=== PATIENT | female | born 1970 | race Caucasian/White ===

== ENCOUNTER → 2022-10-05 | Outpatient (CLI) | payer OTHER | END | disposition home or self-care (01) | LOC: LABPAT 11:27 | PROVIDERS: ATTEND Orthopaedic Surgery | DX: Z01.812 Encounter for preprocedural laboratory examination (principal); Z22.322 Carrier or suspected carrier of Methicillin resistant Staphylococcus aureus; M51.26 Other intervertebral disc displacement, lumbar region | CPT/HCPCS: 87070 ==

== ENCOUNTER 2022-10-13 08:14 | Day surgery (SDC) | payer OTHER ==
--- NOTE | 2022-10-12 11:26 | P.HPOR ---
History of Present Illness H&P Date: 10/05/22 .D:Date: 10/05/22 : 10:29am .T:Title: [facility] History and Physical Date of :[birth year] Age: 51 year Height: 5'4" Weight: 220 lbs BMI: 37.76 kg/m2 Occupation: Unemployed VAS: 8 CHIEF COMPLAINT: recheck lumbar spine DOI:Chronic DOS: None Duration of current treatment regiment: >3 months HISTORY: Xrays No new xrays taken in office Trauma or injury No Work-Related No Pain description aching, burning, sharp. Location diffuse Patient notes that their pain radiates to bilateral lower extremities(R>L) Activity Modification yes , unable to stand or ambulate for extended periods of time. Ambulating with a walker. Hand Dominance right TREATMENTS COMPLETED: 6 weeks of PT completed? Month and Year of last PT date? 4 months ago Yes How many sessions? 12 Did it help? No Physician recommended home exercise completed? Duration of HEP course: greater than 3 months yes Patient has trialed the physician directed home exercise program (without) relief of their symptoms. Pt had to discontinue as it became too painful to complete. Medications yes List: Gabapentin 600mg and Lidocaine patches both without relief of her symptoms. Flexeril with mild relief. Pt is currently taking both ASA and Plavix. Alternative interventions Chiropractic: No Massage therapy: No R.I.C.E: yes , daily without relief. Brace: No Injections Yes (SI joint in [address] Camacho) How many? Several Did they help? No RFA: No SUBJECTIVE: Ms. Otto returns to the office for an recheck of their low back pain and to review the planned L4-L5 Microdiscectomy. Patient reports no improvements to her symptoms since the time of the last appointment. Patient continues to complain of increasing lumbar pain extending into the bilateral lower extremities (R>L) with right lower extremity weakness. Overall the patient has seen a progressive increase in symptoms since their onset. Ms. Otto symptoms are exacerbated with standing, ambulation, flexion/extension/twisting, and high impact movements like walking up and down the stairs, due to this they notes that it is increasingly difficult for Ms. Otto to complete many of their daily tasks. Patient is having severe sleep disturbances as well due to their ongoing pain and associated symptoms. Regarding treatments, the patient has previously trialed all abovementioned treatment modalities without relief of her symptoms. Patient denies trialing any other modalities at this time. For their symptoms, the pa bibiana has been taking Gabapentin without relief of her symptoms. Otherwise the patient denies any f/c/sob/cp, no incision concerns, no bladder or bowel retention/incontinence, no perineal numbness/tingling, and ambulates with a walker. HISTORY: Ms. Otto last returned to the office on 07/11/22 for a recheck of their low back pain. Since the time of the last appointment the patient reports no improvements to her pain or symptoms. Patient notes continued lumbar pain ongoing for several years with no known injury or trauma to indicate an exact onset of their symptoms. In addition to their lumbar pain, they do report that it radiates into the bilateral lower extremities, associated with numbness and tingling through L4-L5 dermatomal distribution. Overall the patient has seen a progressive increase in symptoms since their onset. Ms. Otto symptoms are exacerbated with prolonged standing and ambulation, due to this they notes that it is increasingly difficult for Ms. Otto to complete many of their daily tasks. Patient is having severe sleep disturbances as well due to their ongoing pain and associated symptoms. Regarding treatments, the patient has previously trialed all abovementioned modalities without relief of her symptoms. Patient d enies trialing any other modalities at this time. For their symptoms, the patient has been taking Gabapentin 600mg TID and Flexeril both without relief of her symptoms. Otherwise the patient denies any f/c/sob/cp, no incision concerns, no bladder or bowel retention/incontinence, no perineal numbness/tingling, and ambulates independently. Ms. Otto was last seen on 05/17/2022 regarding her cervical and lumbar spine. Regarding her lumbar symptoms, patient continues to report sharp pain about the low back that radiates into bilateral buttocks and lower extremities diffusely. Patient states she has increased and radiculopathy pain and numbness and tingling to bilateral lower extremities. Regarding her cervical symptoms, patient continues to report sharp pain radiating into the right upper extremity with numbness and tingling. Patient continues to have weakness in the right upper extremity. She states she's had increasing headaches and radiculopathy to bilateral upper extremities, greater in the right upper extremity. Patient reports overall 30% worse from previous visit. Otherwise she denies any bladder or bowel retention/incontinence, no perineal numbness/tingling, and ambulates with walker. MRI results reviewed with patient. Patient would like to proceed with lumbar spine evaluation regarding surgical intervention. Patient to follow up with Dr. Vences. Ms. Otto initially presented to the office on 02/16/2022 for an evaluation of her cervical and lumbar spine. She regards that both areas had similar time of onset but cannot pinpoint an exact onset or mechanism or injury to indicate an exact cause. With this she does report that her symptoms have progressively worsened over time. Regarding her cervical symptoms, she reports that sharp pain radiating into the right upper extremity. With the pain the patient also reports numbness/tingling along with weakness about the right upper extremity. Overall her symptoms are exacerbated with prolonged weightbearing and weightlifting which is increasingly making completion of his daily tasks hurt. As for the lumbar spine, the patient also reports sharp pain about the low back that radiates into the bilateral buttocks and lower extremities diffusely. With this she is concern with increasing numbness and tingling about the bilateral lower extremities. These symptoms are exacerbated with prolonged standing and amb ulation which is significantly impacting her daily functions. Overall she reports progressive levels of disability due to her symptoms. as for treatments, she has previously trialed a physician directed home exercise program for greater than 3 months without relief of her symptoms. Additionally she does take gabapentin and use Lidocaine patches without relief as well. Otherwise the patient has previously seen Dr. Camacho and has had prior injections in 2021 including SI joint but denies any improvements. Otherwise she denies any bladder or bowel retention/incontinence, no perineal numbness/tingling, and ambulates independently. The patients' past social, medical, family, surgical history, as well as review of systems, have been reviewed. Please refer to the Neurosurgery History and Phy sical form that has been scanned in to our electronic medical record system. 16 points review of systems completed and as stated in HPI, all other systems reviewed are negative. Social History: Reviewed, see appropriate section of the chart for details. P3 Social History: Smoking: none P3 Alcohol: none P3 P3 Family History: Reviewed, see appropriate section of the chart for details. P2 Past Medical History: Reviewed, see appropriate section of the chart for details. [id number] Medications: Rx: albuterol sulfate HFA 90 mcg/actuation aerosol inhaler Ref: 0 Rx: aspirin 81 mg tablet,delayed release Ref: 0 Rx: busPIRone 15 mg tablet Ref: 0 Rx: Carafate 1 gram tablet Ref: 0 Rx: CeleXA 20 mg tablet Ref: 0 Rx: clopidogreL 75 mg tablet Ref: 0 Rx: famotidine 20 mg tablet Ref: 0 Rx: lidocaine 5 % topical patch Ref: 0 Rx: Lipitor 10 mg tablet Ref: 0 Rx: Maxalt 10 mg tablet Ref: 0 Rx: melatonin 10 mg tablet Ref: 0 Rx: metoprolol tartrate 25 mg tablet Ref: 0 Rx: midodrine 5 mg tablet Ref: 0 Rx: Oxytrol 3.9 mg/24 hr transdermal patch Ref: 0 Rx: 28 mg iron-800 mcg tablet Ref: 0 Rx: cyclobenzaprine 5 mg tablet Ref: 0 Rx: gabapentin 600 mg tablet Ref: 0 PHYSICAL EXAMINATION: General: Awake, alert, appropriate for age, in no acute distress. HEENT: No unusual neck masses around region of lateral neck triangle, thyroid, supraclavicular groove Heart: Regular rate and rhythm, normal S1, S2 and no murmur/gallop. Lungs: Clear to auscultation bilaterally with no use of accessory muscles. Extremities: Skin warm and dry without acute lesions, coloration, temperature, skin intact, no tenderness or erythema Integument: Hairy patches: ABSENT Dorsal skin dimples: ABSENT Cafe au lait spots: ABSENT Surgical incisions: NONE Palpation: Please see Pain drawing on Intake sheet for further detail. Midline spinal tenderness: No E6 Cervical Tenderness: No E6 Paralumbar tenderness: No E6 Parathoracic tenderness: No E6 Buttocks tenderness: No E6 Sacroiliac Tenderness: No POSTURAL and MUSCULO-SKELETAL EVALUATION: Coronal Balance: NEUTRAL Recumbent testing: Patient is able to lay flat on back Sagittal Balance: NEUTRAL Shoulder Profile: LEVEL Pelvic Girdle: LEVEL Neck ROM: UNRESTRICTED Lumbar ROM: RESTRICTED Shoulder ROM: Symmetrical Hip ROM: Symmetrical Knee ROM: Symmetrical Hands: Normal appearance, symmetrical Feet: Normal appearance, Symmetrical VASCULAR STATUS : LEFT RIGHT Wrist Pulses INTACT INTACT Pedal Pulses (Dors. pedis & post.tibialis) INTACT INTACT Color NORMAL NORMAL Edema Absent Absent NEUROLOGIC EXAMINATION: Mental Status:Awake and alert, fully oriented, with normal attention, concentration and memory, and fluent, appropriate speech. Cranial Nerves: I: Olfactory not tested. II: Visual acuity normal, no visual field deficit noted with confrontation. III,IV: Normal pupillary reflexes & intact extraocular movements without nystagmus. V,: Intact symmetrical facial sensation. VII: Intact symmetrical facial motor movement VIII: Hearing intact. IX,X: Intact gag, swallow, & normal voice. XI: Sternocleidomastoid, trapezius function intact. XII: Tongue midline with normal movements. L'hermitte's Sign: Negative / absent Spurling'Sign: Absent bilaterally. Cubital percussion test: Absent bilaterally. Hicks-Tinel sign - Carpal region: Absent bilaterally. Straight Leg Raising: Absent bilaterally. 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 Sensory system (0-4, N/T) Test type RU MIKE RL LL Joint-Position 2 2 2 2 Vibration 2 2 2 2 Pain & LT sense 2 2 2 2 Dermatomal Deficit: None None L4-L5 L4-L5 Gait and Functional Evaluation: Ambulatory aids: walker Romberg's test: Intact bilaterally Toe heel walk / heel-toe walk intact while maintaining satisfactory balance? No Squatting/straightening w/o assistance to a min of 60 degree knee flexion? No Single leg stance: not intact right side Trendelenburg sign negative bilaterally Hand and finger dexterity intact bilaterally? yes Disdiadochokinesis examination negative bilaterally? yes RADIOGRAPHIC STUDIES: XRay Lumbar Multiview (AP, Lateral, Flexion, Extension) with AP pelvis; 11 views taken on 02/16/22 of Lumbar Spine and Pelvis: disc desiccation and height loss noted at L4-L5 as well as L5-S1. No acute alignment changes. No fractures or other dislocations or lesions noted. Overall alignment is fairly well maintained. Some facet arthrosis noted. AP pelvis demonstrates congruent level pelvis no fracture. MRI taken on 03/29/22 at [facility] of the Cervical and Lumbar Spine: Cervical: Impression: 1. leftward disc protrusiondisc osteophyte complex at C5-C6. Stable. Minimal mass effect upon the anterior left jose manuel-cord. 2. Mild variable bony neural foraminal narrowing. 3. Satisfactory spinal cord signal intensity. Lumbar: Impression: 1. Progressive rightsided disc extrusion with caudal migration of disc material at L4-5. 2. Mass effect on the anterior right thecal sac and posterior displacement right L5 nerve root on the basis of the disc extrusion. 3. Mild neuro degenerative and spondylitic changes as detailed. IMPRESSION: It was my pleasure to have seen and examined Monica. I reviewed the patient's clinical syndrome, physical findings, and imaging studies during the appointment today. It is my impression that the patient has a diagnosis of. 1. L4-L5 herniated nucleus pulposus 2. bilateral lower extremity radiculopathy (R>L) 3. right lower extremity weakness I outlined the natural course history without intervention and various interventional options. PLAN: Based on my findings I suggest the following course of action: -Advised patient to continue with supplements, health maintenance, and home exercise programs. Patient expressed understanding and will continue with these modalities. -I discussed treatment options with the patient, including operative and non- operative options, and they have elected to proceed with the following surgical procedure: lumbar (L4-L5) MIS Microdiskectomy The indications, risks, benefits, and alternatives to surgery were discussed with the patient at length. Specifically (but not limited to) the risks of infection, stiffness, recurrence of symptoms, need for revision surgery, local numbness, neurovascular injury, and blood clots were discussed. The patient's questions were answered. The decision to proceed was made. Consent will be obtained for the procedure. Spine Surgery Risk Review Ms. Otto is presenting for evaluation of low back pain. It was my pleasure to have seen and examined Ms. Otto. In our visit today we have had a chance to go over subjective complaints, physical examination findings and treatments including the natural course history without intervention and various interventional options. The patients imaging demonstrates: XRay Lumbar Multiview (AP, Lateral, Flexion, Extension) with AP pelvis; 11 views taken on 02/16/22 of Lumbar Spine and Pelvis: disc desiccation and height loss noted at L4-L5 as well as L5-S1. No acute alignment changes. No fractures or other dislocations or lesions noted. Overall alignment is fairly well maintained. Some facet arthrosis noted. AP pelvis demonstrates congruent level pelvis no fracture. MRI taken on 03/29/22 at [facility] of the Cervical and Lumbar Spine: Cervical: Impression: 1. leftward disc protrusiondisc osteophyte complex at C5-C6. Stable. Minimal mass effect upon the anterior left jose manuel-cord. 2. Mild variable bony neural foraminal narrowing. 3. Satisfactory spinal cord signal intensity. Lumbar: Impression: 1. Progressive rightsided disc extrusion with caudal migration of disc material at L4-5. 2. Mass effect on the anterior right thecal sac and posterior displacement right L5 nerve root on the basis of the disc extrusion. 3. Mild neuro degenerative and spondylitic changes as detailed. On physical exam, Ms. Otto demonstrates restricted lumbar ROM with pain that is significantly impacting ability to perform functional testing. Furthermore the patient does also demonstrate bilateral lower extremity radiculopathy and paresthesias through the L4-L5 dermatomal distribution. There is right lower extremity weakness along with unsteady gait. Patient ambulating with the use of a walker. I have explained to the patient that as their condition progresses it will cause further neurological deficits and eventual paralysis. Based on the patients imaging, physical exam, and the rapid progression and disabling nature of their symptoms, at this time I recommend surgery in the form or a: lumbar (L4-L5) MIS Microdiskectomy . I discussed the risk and benefits of this procedure at length with Ms. Otto. The patient agreed to considered pursuing the procedure abovementioned. Prior to surgery, she should follow up with her PCP (Cardio, ID, IM etc) for clearance. Questions were invited and answered, and the patient wishes to proceed as outlined below. Currently, I am recommendin.lumbar (L4-L5) MIS Microdiskectomy 2.Follow up with PCP for surgical clearance 3.Review of surgical risks and benefits as well as an educational packet on the proposed surgical procedure. Risks: All surgical procedures come with inherent risks, including those related to positioning, anesthesia, intraoperative findings, and postoperative complications. It is important to understand that surgery does not come with any guarantee of a successful outcome as complications and adverse events are always possible. The patient was given a handout in office today discussing the surgical procedure and risks associated with the intervention, both of which were discussed with the patient. These risks include but are not limited to the following: * Experiencing same, different or even worse symptoms in back, neck, arms, or legs compared to before surgery. Requiring further surgery or other forms of treatment presently or at some time in the future at same or other levels of the intended spine surgery. On an extreme but fortunately relatively rare basis severe complication such as blindness, stroke, heart attack, temporary and/or permanent nerve injury, paralysis, coma, or may occur, sometimes without known explanation. Surgical complications may include but are not limited to risk of infection, fluid accumulation in the surgical dissection site, including a seroma or hematoma, that requires additional surgery, wound drainage, bleeding, new numbness or weakness, vision changes/loss, spinal fluid leakage, non-healing and/or infected incision, headaches, difficulty or inability to swallow, hoarseness, hemopneumothorax, pneumothorax, impotence, retrograde ejaculation, vaginal dryness; injury to nerves, spinal cord, blood vessels, lymphatics or other vital organs (i.e., bowel injury, injury to the great vessels); heterotopic bone formation; complications related to the hardware such as screws, rods, cages including misplaced hardware, device failure, instrumentation at the wrong spine level, hardware fracture/breakage, or hardware loosening; vertebral failure of the spinal column above or below the newly placed hardware; retained surgical instrumentations or devices and the need for further surgery. * Medical risks of the planned spine surgery include but are not limited to generalized Infections to the whole body or local areas outside of the surgical site (sepsis), heart attack, bleeding, anaphylaxis, meningitis, seizure, epilepsy, hearing loss, burn souza, laceration of the head or other areas of the body, bruising, hypersensitivity of the skin, bladder over distension; allergic reaction; shoulder injury related to positioning; fat, blood and air clots to other areas of the body like heart, lungs, brain; failure of internal organs such as lungs, kidneys, liver and excessive bleeding. If blood transfusions are necessary, note that transfusions may cause intolerance reactions such as anaphylaxis or other complex reactions. Despite best efforts, the results of spine surgery might not heal in terms of bone, soft tissues such as skin, fascia, ligaments, and joints. Additionally, in order to achieve best possible results, spine surgery may be carried out beyond the initially planned levels and involve decompression, fusion including insertion of hardware at levels other than the original intended area of surgical interest change some portions of the procedure in order to ensure the best possible outcomes. With spine surgery and spinal fusion, there are different off label uses of i nstrumentation (devices, implants and hardware) as well as biological substances (bone morphogenic proteins, demineralized bone matrix) as well as using extra bone from allograft sources (i.e. cadaver bone) or autograft (iliac crest bone, ribs, or the spine itself). The patient has been given information about these practices and their inherent risks and benefits. [facility] is an educational center that serves as a training facility for neurosurgical and orthopedic DISTRICT CLAIMS MANAGER and Nursing students. Physician assistants are medically trained surgical providers who function in the outpatient, inpatient, and operating room setting under the direct supervision of the attending surgeon. [facility] has multiple operating rooms with single and overlapping rooms running daily. They currently function under the required guidelines as produced by the [facility] Finance Committee with regards to the overlapping rooms and will continue to comply with changes to this policy as they occur. The requirements include and are complied with as follows: (1) the critical portions of the overlapping rooms will not occur at the same time, (2) the attending physician will be physically present during the critical portions of the procedure and immediately available during the entire case, and (3) a back-up attending is designated should the primary attending not be immediately available. The patient has had a chance to review all the listed information, has been given print outs detailing this information, and has had all his/her questions answered to their satisfaction. It was my pleasure to have seen and examined Ms. Otto. In our visit today we have had a chance to go over my understanding of our patient's current condition, the natural course history without intervention and various interventional options. Questions were invited and answered, and the patient wishes to proceed as outlined above. I have seen and examined the patient for 25 minutes and we have spent more than 50% of the time in repeat and detailed counseling about the patient's condition, its natural course history with out and as much as can be predicted with surgery and re-review of various surgical treatment options. In conclusion, Ms. Otto requested we proceed with the above suggested surgery and are willing to accept risks and limitations of the suggested surgery as nature of the disease process and our best attempts at treatment for the condition. Thank you again for allowing us to be part of your patient's care. Please don't hesitate to contact me if you have any further questions. Signed and authenticated by: Follow-up: 2 weeks post-op Patient Education: (Informational booklet, instructions, etc) given at today's appointment: Yes .ED:Patient Education: Y Plan at next visit: pre-operative review Medications Reviewed: YES In our visit today Ms. Otto and I have had a chance to go over my understanding of the patient's current condition, the natural course history without intervention and various interventional options. Questions were invited and answered, and the patient wishes to proceed as outlined above. I will be sure to keep you updated afterMs. Otto returns here for further follow-up. Thank you again for your referral. Please do not hesitate to contact me if you have any further questions. Signed and authenticated by: Emil Castillo [facility] [address] [place] [phone] This message is confidential, intended only for the named recipient(s) and may contain information that is privileged or exempt from disclosure under applicable law. If you are not the intended recipient(s), you are notified that the dissemination, distribution or copying of this information is strictly prohibited. If you received this message in error, please notify the sender then delete this message. Patient verbalizes understanding of the information discussed. The above note was initiated by Emil Miguel, physician recording assistant women's soccer coach for Dr. Emil Vences. This note has been reviewed by Dr. Vences, who has made his personal changes and impressions for this document. # SIGNED BY Emil Vences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
[~2022-10-13 08:14] MED LIST: ACETAMINOPHEN TAB 500 MG TAB PO PRN; GABAPENTIN 300 MG CAP PO PRN; ONDANSETRON 4 MG/2 ML VIAL IVP PRN; TRANEXAMIC ACID IN NACL,ISO-OS 1,000 MG in SALINE 1 100ML.BAG IVPB PRN
[2022-10-13 08:49] VITALS: TEMP 96.9
[2022-10-13] MEDS ORDERED: LACTATED RINGERS 1,000 ML IV ONE ×2 (09:28→11:36)
[2022-10-13] MEDS ORDERED: DEXAMETHASONE SOD PHOSPHATE 4 MG/ML 1 ML VIAL IVP ONE (09:30)
[2022-10-13] MEDS ORDERED: MIDAZOLAM 2 MG/2 ML VIAL ONE (10:02)
[2022-10-13] MEDS ORDERED: TRANEXAMIC ACID IN NACL,ISO-OS 1,000 MG/100 ML BAG ONE (10:02)
[2022-10-13] MEDS ORDERED: GLYCOPYRROLATE 0.2 MG/ML 2 ML VIAL ONE (10:02)
[2022-10-13] MEDS ORDERED: LIDOCAINE 2% INJ 20 MG/ML (2 ML VIAL) ONE (10:02)
[2022-10-13] MEDS ORDERED: NEOSTIGMINE 1 MG/ML 10 ML VIAL ONE (10:02)
[2022-10-13] MEDS ORDERED: PROPOFOL 10 MG/ML 20 ML VIAL IV ONE (10:02)
[2022-10-13] MEDS ORDERED: ePHEDrine 50 MG/ML 1 ML VIAL ONE (10:02)
[2022-10-13] MEDS ORDERED: fentaNYL (PF) 50 MCG/ML 2 ML AMP ONE (10:02)
[2022-10-13] MEDS ORDERED: ROCURONIUM 10 MG/ML (5 ML VIAL) IV ONE (10:02)
[2022-10-13] MEDS ORDERED: SUCCINYLCHOLINE CHLORIDE 200 MG/10 ML VIAL IV ONE (10:02)
[2022-10-13] MEDS ORDERED: BUPIVACAIN-EPI 0.25%-1:200,000 30 ML VIAL SQ ONE (10:07)
[2022-10-13] MEDS ORDERED: THROMBIN (BOVINE) 5,000 UNIT VIAL TOPICAL ONE (10:07)
[2022-10-13] MEDS ORDERED: GELATIN SPONGE,ABSORB (LARGE) 1 EACH SPONGE TOPICAL ONE (10:07)
[2022-10-13] MEDS ORDERED: methylPREDNISolone ACETATE 40 MG/ML 1 ML VIAL MISCELLANE ONE (11:29)
--- NOTE | 2022-10-13 12:05 | P.OP ---
Date of Procedure: 10/13/22 Preoperative Diagnosis: 1. 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 L4-5 stenosis 3. LE radiculopathy 4 .LE weakness Postoperative Diagnosis: 1. 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 L4-5 stenosis 3. LE radiculopathy 4 .LE weakness Procedure(s) Performed: 1. L4-5 hemilaminotomy, partial medial facetectomy and foraminotomy with microdiscectomy (59309) 2. Needle localization of L4-5 interspace using flouroscopy Use of microscope Implants: None Anesthesia: GETA Surgeon: Emil Vences Nursing Professor #1: Levar Figueroa (Was present and assisted in all aspects of the case from positioning to dressing placement) Estimated Blood Loss (ml): 25 IV fluids (ml): 1,000 Urine output (ml): 0 Pathology: none sent Condition: stable Disposition: PACU Indications for Procedure: Ms. Otto is presenting for evaluation of low back pain. It was my pleasure to have seen and examined Ms. Otto. In our visit today we have had a chance to go over subjective complaints, physical examination findings and treatments including the natural course history without intervention and various interventional options. The patients im aging demonstrates: XRay Lumbar Multiview (AP, Lateral, Flexion, Extension) with AP pelvis; 11 views taken on 02/16/22 of Lumbar Spine and Pelvis: disc desiccation and height loss noted at L4-L5 as well as L5-S1. No acute alignment changes. No fractures or other dislocations or lesions noted. Overall alignment is fairly well maintained. Some facet arthrosis noted. AP pelvis demonstrates congruent level pelvis no fracture. MRI taken on 03/29/22 at [facility] Lumbar Sp[facility]: Cervical: Impression: 1. leftward disc protrusiondisc osteophyte complex at C5-C6. Stable. Minimal mass effect upon the anterior left sundar-cord. 2. Mild variable bony neural foraminal narrowing. 3. Satisfactory spinal cord signal intensity. Lumbar: Impression: 1. Progressive rightsided disc extrusion with caudal migration of disc material at L4-5. 2. Mass effect on the anterior right thecal sac and posterior displacement right L5 nerve root on the basis of the disc extrusion. 3. Mild neuro degenerative and spondylitic changes as detailed. On physical exam, Ms. Otto demonstrates restricted lumbar ROM with pain that is significantly impacting ability to perform functional testing. Furthermore the patient does also demonstrate bilateral lower extremity radiculopathy and paresthesias through the L4-L5 dermatomal distribution. There is right lower extremity weakness along with unsteady gait. Patient ambulating with the use of a walker. I have explained to the patient that as their condition progresses it will cause further neurological deficits and eventual paralysis. Based on the patients imaging, physical exam, and the rapid progression and disabling nature of their symptoms, at this time I recommend surgery in the form or a: lumbar (L4-L5) MIS Microdiskectomy . I discussed the risk and benefits of this procedure at length with Ms. Otto. The patient agreed to considered pursuing the procedure abovementioned. Prior to surgery, she should follow up with her PCP (Cardio, ID, IM etc) for clearance. Questions were invited and answered, and the patient wishes to proceed as outlined below. Currently, I am recommendin.lumbar (L4-L5) MIS Microdiskectomy Description of Procedure: The patient was seen and examined in the preoperative area. All preoperative protocols were followed. Informed consent was obtained, risks and benefits of the procedure were discussed at length. Risks including bleeding infection damage to the surrounding tissue and risk of re-operation were discussed with the patient. Risk of anesthesia up to and including was discussed with the patient. These are outlined in the risk review. They were willing to accept these risks and all the risks of surgery. The patient was given a weight-based dose of antibiotics in the form of 2 g Ancef. The patient was seen and evaluated by the anesthesia team who deemed them fit for surgery. The site was marked, the patient was willing to proceed with the procedure. The patient was transferred to the operative suite by the Department of anesthesia. They were then drifted off to sleep by the department anesthesia and GETA was performed. The patient tolerated this well. Once confirmation of lines and ventilation the patient was transferred to a prone Armando table very carefully. All bony prominences including wrists, elbows, axilla, chest, hips, and thighs, and feet were padded very well. Special attention was paid to the genitalia, and these were padded accordingly. SCDs were placed on bilateral lower extremities and were connected. Arms were well padded and placed on arm boards up and out in the 90/90 position. Once in position, again we confirmed good ventilation capabilities and that lines were running appropriately. The patients Lumbar spine was then exposed. 1010s were placed outlining the incision site. Standard alcohol was used to clean the incision site and allowed to dry. C-arm was used to needle localize the pedicles at L4-5 and bio-rodrigo the patient and confirm level for incision which was marked with a skin marker. Operative briefing was performed with all teams and everyone in agreement to proceed. The patient was then prepped and draped in a normal sterile fashion. Timeout was then performed, and all parties agreed with the procedure to be performed. Skin incision was made over the previously marked area and dissection taken down to the deep facia which was split just off midline for a midline sparing approach (Right). Subperiosteal dissection was then taken down the lamina over the facet joints and identifying the pars at L4. [place] 4 was placed at the level of the pars of L4 and a lateral image taken to confirm operative level. Retractors were then placed. Microscope was then brought in for visualization. Sundar-laminotomy, partial medial facetectomy and foraminotomy were performed at L4-5 using high speed zhanna and Kerrison rongure. The ligamentum flavum was removed with Kerrison and curette. Dura and roots protected. The disc space was identified along with the herniation. 11 blade was used to make small annulotomy and micro-pituitary used to remove loose disc fragments. Once fragments were removed, down biting curette was used to push any medial fragments down and towards the annulotomy and decompress centrally. The disc space was irrigated, and any loose fragments removed again. Bipolar was used for hemostasis and scarring of the annulotomy. The area was irrigated, and meticulous hemostasis performed. The bed was inspected, and all roots have ample room and are decompressed along with the dura. There were no injuries. Retractors were then removed. The wound was copiously irrigated with NSS. The deep fascia was closed with 0 PDS. Deep sub-q with 0 Vicryl and superficial with 2-0 Vicryl. Subcuticular was closed with 3-0 stratafix. The wound edges approximated well. The wound was then cleaned, and glue tape placed on the skin and allowed to dry. It was then Covered with an Opifoam dressing. The patient was then transferred off the table back to their hospital bed a- traumatically. They were extubated by the department of anesthesia. They were then transferred to PACU in stable condition having tolerated the procedure with no complications.
[2022-10-13] MEDS ORDERED: hydrALAZINE HCL 20 MG/ML 1 ML VIAL IVP ONE (12:35)
--- NOTE | 2022-10-13 13:05 | FL ---
EXAMINATION TYPE: FL guided pain mgmt statistic, XR lumbar spine 2 or 3V DATE OF EXAM: 10/13/2022 FLUOROSCOPY Fluoroscopy time of 8 seconds was used during lumbar discectomy. 4 image/s document/s the procedure.
[2022-10-13] MEDS ORDERED: HYDROmorphone 0.5 MG/0.5 ML SYRINGE IVP ONE ×2 (13:22→13:40)
[2022-10-13 14:20] VITALS: RESP 16
[2022-10-13] MEDS ORDERED: oxyCODONE-APAP 5-325MG 1 EACH TAB ONE (14:36)
[2022-10-13] MEDS ORDERED: oxyCODONE-APAP 5-325MG 1 EACH TAB PO ONE (14:37)
[2022-10-13 15:01] VITALS: BP 126/83; PULSE 84
== END 2022-10-13 14:57 | disposition home or self-care (01) ==
LOC: OR 08:14
PROVIDERS: ATTEND Orthopaedic Surgery
DX: M51.16 Intervertebral disc disorders with radiculopathy, lumbar region (principal); M48.061 Spinal stenosis, lumbar region without neurogenic claudication; M47.26 Other spondylosis with radiculopathy, lumbar region; M25.78 Osteophyte, vertebrae; I48.91 Unspecified atrial fibrillation; J44.9 Chronic obstructive pulmonary disease, unspecified; K21.9 Gastro-esophageal reflux disease without esophagitis; E78.5 Hyperlipidemia, unspecified; I10 Essential (primary) hypertension; G47.30 Sleep apnea, unspecified; G40.909 Epilepsy, unspecified, not intractable, without status epilepticus; Z90.49 Acquired absence of other specified parts of digestive tract; Z90.710 Acquired absence of both cervix and uterus; Z87.891 Personal history of nicotine dependence; Z98.1 Arthrodesis status; Z98.891 History of uterine scar from previous surgery; Z79.82 Long term (current) use of aspirin; Z88.5 Allergy status to narcotic agent; Z91.030 Bee allergy status; Z91.040 Latex allergy status; Z88.2 Allergy status to sulfonamides; Z88.1 Allergy status to other antibiotic agents; Z79.899 Other long term (current) drug therapy
CPT/HCPCS: 86900; 86901; 86850; 72100; 63030; C1762; J2250; J0330; J0360; J1030; J1100; J2710; J0690; J2405; J3010; J2704; J1170; J2001

== ENCOUNTER → 2022-12-23 | Outpatient (CLI) | payer OTHER | END | disposition home or self-care (01) | LOC: RADMRIMAIN 17:05 | PROVIDERS: ATTEND Orthopaedic Surgery | DX: Z53.9 Procedure and treatment not carried out, unspecified reason (principal) ==

== ENCOUNTER 2022-12-26 14:57 | Observation (INO) | payer OTHER ==
[2022-12-23 11:48] VITALS: BMI 36.8
[~2022-12-26 14:57] MED LIST changes: -ACETAMINOPHEN TAB 500 MG TAB PO PRN; +DEXAMETHASONE SOD PHOSPHATE 4 MG/ML 1 ML VIAL IV ONE; -GABAPENTIN 300 MG CAP PO PRN; +LIDOCAINE 1% (10MG/ML) FOR IV START INTRADERMA PRN; +METOCLOPRAMIDE 5 MG/ML 2 ML VIAL IVP PRN; +ONDANSETRON 4 MG/2 ML VIAL IVP ONE; -ONDANSETRON 4 MG/2 ML VIAL IVP PRN; +Pre Op ABX Message 1 EACH MISC MISCELLANE ONE; -TRANEXAMIC ACID IN NACL,ISO-OS 1,000 MG in SALINE 1 100ML.BAG IVPB PRN
[2022-12-26] MEDS: LACTATED RINGERS 1,000 ML IV SCH (15:12)
[2022-12-26 15:43] LABS: Basophils % (A) 0 %; Eosinophils # (A) 0.2 k/uL (0-0.7); Eosinophils % (A) 3 %; HCT 41.5 % (34.0-46.0); HGB 13.8 gm/dL (11.4-16.0); Lymphocytes # (A) 1.5 k/uL (1.0-4.8); Lymphocytes % (A) 28 %; MCH 30.4 pg (25.0-35.0); MCHC 33.2 g/dL (31.0-37.0); MCV 91.7 fL (80.0-100.0); Monocytes # (A) 0.3 k/uL (0-1.0); Monocytes % (A) 6 %; Neutrophils # (A) 3.1 k/uL (1.3-7.7); Neutrophils % (A) 59 %; Platelet Count 314 k/uL (150-450); RBC 4.53 m/uL (3.80-5.40); WBC 5.3 k/uL (3.8-10.6)
[2022-12-26 16:00] LABS: Calcium 9.1 mg/dL (8.4-10.2); Potassium 3.8 mmol/L (3.5-5.1)
[2022-12-26 16:01] LABS: INR 0.9 (<1.2); Prothrombin Time 9.8 sec (9.0-12.0)
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
[2022-12-26] MEDS ORDERED: PROPOFOL 10 MG/ML 20 ML VIAL IV ONE (16:05)
[2022-12-26] MEDS ORDERED: SUCCINYLCHOLINE CHLORIDE 200 MG/10 ML VIAL IV ONE (16:05)
[2022-12-26] MEDS ORDERED: NEOSTIGMINE 1 MG/ML 10 ML VIAL ONE (16:05)
[2022-12-26] MEDS ORDERED: LIDOCAINE 2% INJ 20 MG/ML (2 ML VIAL) ONE (16:05)
[2022-12-26] MEDS ORDERED: ROCURONIUM 10 MG/ML (5 ML VIAL) IV ONE (16:05)
[2022-12-26] MEDS ORDERED: HYDROmorphone (PF) 1 MG/ML ONE (16:05)
[2022-12-26] MEDS ORDERED: MIDAZOLAM 2 MG/2 ML VIAL ONE (16:05)
[2022-12-26] MEDS ORDERED: fentaNYL (PF) 50 MCG/ML 2 ML AMP ONE (16:05)
[2022-12-26] MEDS ORDERED: GLYCOPYRROLATE 0.2 MG/ML 2 ML VIAL ONE (16:05)
[2022-12-26] MEDS ORDERED: ceFAZolin 3,000 MG in SODIUM CHLORIDE 0.9% IRRIGATIO 3,000 ML IRRIGATION ONE (16:41)
[2022-12-26] MEDS ORDERED: GENTAMICIN 80 MG in SODIUM CHLORIDE 0.9% IRRIGATIO 3,000 ML IRRIGATION ONE (16:41)
[2022-12-26] MEDS ORDERED: LACTATED RINGERS 1,000 ML IV ONE (17:00)
[2022-12-26] MEDS ORDERED: THROMBIN (BOVINE) 5,000 UNIT VIAL TOPICAL ONE (17:10)
[2022-12-26] MEDS ORDERED: GELATIN SPONGE,ABSORB (LARGE) 1 EACH SPONGE TOPICAL ONE (17:11)
[2022-12-26] MEDS ORDERED: VANCOMYCIN 1,000 MG VIAL MISCELLANE ONE ×2 (17:12)
[2022-12-26] MEDS ORDERED: SENNOSIDES-DOCUSATE SODIUM 1 EACH TAB PO PRN (18:16)
[2022-12-26] MEDS ORDERED: HYDROcodone/APAP 5-325MG 1 EACH TAB PO PRN (18:16)
[2022-12-26] MEDS ORDERED: HYDROmorphone 1 MG/ML 1 ML SYRINGE IVP PRN (18:16)
[2022-12-26] MEDS ORDERED: MAGNESIUM HYDROXIDE 2,400 MG/10 ML CUP PO PRN (18:16)
[2022-12-26] MEDS ORDERED: HYDROcodone/APAP 10-325MG 1 EACH TAB PO PRN (18:16)
[2022-12-26] MEDS: HYDROmorphone 0.5 MG/0.5 ML SYRINGE IVP PRN ×4 (18:45→23:06)
--- NOTE | 2022-12-26 18:50 | FL ---
Intraoperative/procedural fluoroscopic services were provided. Total fluoroscopy time is 0.007 second s with a total of 1 submitted images to PACS. Please see the operative/procedural note for further de tails. DAP: 0.1728
[2022-12-26] MEDS ORDERED: diphenhydrAMINE 50 MG/ML 1 ML VIAL IVP ONE (19:38)
[2022-12-26] MEDS: GABAPENTIN 300 MG CAP PO SCH (23:05)
[2022-12-26] MEDS: ACETAMINOPHEN TAB 325 MG TAB PO SCH (23:05)
[2022-12-27] MEDS ORDERED: ALBUTEROL NEBULIZED 2.5 MG/3 ML INHALATION PRN (01:11)
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
[2022-12-27] MEDS: HYDROmorphone 0.5 MG/0.5 ML SYRINGE IVP PRN ×2 (02:25→05:50)
[2022-12-27] MEDS: ACETAMINOPHEN TAB 325 MG TAB PO SCH ×4 (05:50→23:49)
--- NOTE | 2022-12-27 08:31 | P.PN ---
Subjective Progress Note Date: 12/27/22 Principal diagnosis: Post-Op seroma Post-Op 6 weekslumbar (L4-L5) MIS Microdiscectomy Patient seen and examined this morning. She is resting comfortably in bed. Patient remained laying flat overnight. She denies any headache, dizziness or blurred vision. Patient may slowly increase her activity today; she may sit upright. Surgical dressing is clean dry and intact. Continue to remind patient no bending, lifting, or twisting. Patient denies any numbness or tingling to bilateral lower extremities. Patient has been afebrile, denies nausea/vomiting, or chest pain. Objective - Vital Signs Vital signs: Vital Signs Temp 97.9 F 12/27/22 02:00 Pulse 84 12/27/22 02:00 Resp 15 12/27/22 02:00 BP 142/76 12/27/22 02:00 Pulse Ox 94 L 12/27/22 02:00 FiO2 Intake & Output 12/26/22 12/27/22 12/27/22 18:59 06:59 18:59 Intake Total 652 100 Output Total 150 600 Balance 502 -500 Weight 97.3 kg 97.3 kg Intake: IV 652 100 Output: Urine 100 600 Estimated Blood Loss 50 Other: Voiding Method Indwelling Catheter - Exam Physical Examination General: The patient is awake and alert, in no acute distress Skin: Skin is warm and dry with no obvious rashes or lesions. Eye: Pupils are equal, round and reactive to light, extra-ocular movements are intact; there is normal conjunctiva bilaterally. Neck: The neck is supple, there is no tenderness and ROM intact. Cardiovascular: There is a regular rate and rhythm. No murmur, rub or gallop is appreciated. Respiratory: Lungs are clear to auscultation, respirations are non-labored, breath sounds are equal. Gastrointestinal: Soft, non-distended, non-tender abdomen. Back: There is no tenderness to palpation in the midline, paralumbar, parathoracic or buttocks region. There is no obvious deformity . Musculoskeletal: ROM limited secondary to pain and stiffness from surgical procedure. Muscle strength in all major muscle groups of bilateral upper extremities 5/5, bilateral lower extremities 4/5. Neurological: CN 2-12 intact. There are no obvious motor or sensory deficits. Movement and coordination equal and intact. Sensory exam to light touch intact C5-T1 and intact from L2-S1. Reflexes 2/4 in bilateral upper and lower extremities. Negative Hoffmans, babinski, and clonus signs. Psychiatric: Cooperative, appropriate mood & affect, normal judgment. - Labs CBC & Chem 7: 12/26/22 15:35 12/26/22 15:35 Labs: Abnormal Lab Results - Last 24 Hours (Table) 12/26/22 Range/Units 15:35 Carbon Dioxide 33 H (22-30) mmol/L Creatinine 1.10 H (0.52-1.04) mg/dL Glucose 100 H (74-99) mg/dL Assessment and Plan Assessment: Postop day 1: Incision and drainage with L4-L5 laminectomy and dura repair 1. Post-Op seroma 2. Post-Op 6 weekslumbar (L4-L5) MIS Microdiscectomy Plan: -Appreciate [employer] consultant and team management. -Activity: Patient may slowly increase her activity today, up and about, no lifting bending twisting less than 5 lbs. Use walker or cane if needed for sta bility. -Daily PT/OT, increase ambulation strength and balance. -Pain control: Adequate at this time -Meds: reviewed -GI ppx: senna, Miralax -DC verma when up and about, bedside commode if needed -DVT PPX: OK to restart Heparin tonight -Hygiene: Shower today. Maintain dressing clean and dry. Meticulous cleaning after BMs away from the incision site -Encourage IS 10x/hr -Dispo: Anticipate discharge home tomorrow with homecare *I reviewed and discussed this case with my attending Dr. Vences, whom has reviewed this chart and films and is in agreement with assessment and plan of care as outlined above. I have personally seen and examined the patient, performed the documentation and the assessment and plan as written. Number of minutes spent on the visit: 20m.
[2022-12-27 08:32] LABS: HCT 39.1 % (34.0-46.0); HGB 13.2 gm/dL (11.4-16.0); MCH 31.4 pg (25.0-35.0); MCHC 33.8 g/dL (31.0-37.0); MCV 92.8 fL (80.0-100.0); Mean Platelet Volume 7.6; Platelet Count 280 k/uL (150-450); RBC 4.21 m/uL (3.80-5.40); RDW 14.2 % (11.5-15.5); WBC 6.4 k/uL (3.8-10.6)
[2022-12-27] MEDS ORDERED: GABAPENTIN 300 MG CAP PO SCH (09:00)
[2022-12-27 09:15] LABS: African American GFR (CKD) 71 (>60 ml/min/1.73 sqM); Anion Gap 7 mmol/L; Blood Urea Nitrogen 13 mg/dL (7-17); Calcium 8.8 mg/dL (8.4-10.2); Carbon Dioxide 30 mmol/L (22-30); Chloride 101 mmol/L (98-107); Glucose 112 mg/dL (74-99); Non-African American GFR(CKD) 61 (>60 ml/min/1.73 sqM); Potassium 4.1 mmol/L (3.5-5.1); Sodium 138 mmol/L (137-145)
[2022-12-27] MEDS: MIDODRINE 5 MG TAB PO SCH ×3 (09:17→20:22)
[2022-12-27] MEDS: FAMOTIDINE 20 MG TAB PO SCH ×2 (09:18→20:20)
[2022-12-27] MEDS: GABAPENTIN 300 MG CAP PO SCH ×3 (09:18→20:20)
[2022-12-27] MEDS: SENNOSIDES-DOCUSATE SODIUM 1 EACH TAB PO SCH (09:18)
[2022-12-27] MEDS: busPIRone HCl 5 MG TAB PO SCH ×2 (09:18→20:20)
[2022-12-27] MEDS: OXYBUTYNIN XL 5 MG TAB.ER.24 PO SCH ×2 (09:18→20:20)
[2022-12-27] MEDS: METOPROLOL TARTRATE 25 MG TAB PO SCH ×2 (09:18→20:20)
[2022-12-27] MEDS: CITALOPRAM HYDROBROMIDE 20 MG TAB PO SCH (09:18)
--- NOTE | 2022-12-27 10:32 | P.PN ---
Subjective Progress Note Date: 12/27/22 Patient is a 50-year-old female with COPD, A. 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 Patient tolerated the procedure well without any immediate postoperative complications. Patient seen and examined at bedside. She denies any chest pain, shortness of breath, nausea, vomiting, lightheadedness. She does report some back pain and states that orthopedics adjusted her pain meds this morning. Vital signs reviewed General: nontoxic, no distress, appears at stated age Cardiovascular: S1S2 reg, no murmur, positive posterior tibial pulse bilateral, Lungs: CTA bilateral, no rhonchi, no rales , no accessory muscle use Abdominal: soft, nontender to palpation, no guarding, no appreciable organomegaly Ext: no gross muscle atrophy, no edema, no contractures Neuro: CN II-XI grossly intact, no focal neuro deficits Psych: Alert, oriented, appropriate affect Assessment: Patient is a 52 yo female here for Lumbar I and D, L4/5 laminectomy witth dural repair POD # 1 Paroxysmal atrial fibrillation status post watchman Chronic hypotension requiring Midrin COPD without acute exacerbation CKD Stage II with solitary kidney Dyslipidemia Imaging: None to review Data Review: Laboratory analysis reviewed. CBC unremarkable. BMP remarkable for creatinine 1.05 appears to be at baseline, glucose 112. Plan: -Blood pressures reviewed and have been well controlled. Continue with metoprolol 25 mg twice daily as well as her home Midrin 5 mg 3 times daily. It appears that this combination is being used to keep her blood pressure stable well ensuring that she maintains normal heart rate given her A. fib. -Continue with to [place] 5 mg twice daily, Lipitor 10 mg at night, and BuSpar 15 mg twice daily -no need for repeat labs in a.m. Thank you for allowing us to participate in the care of this pleasant patient. Do not hesitate to contact us with questions. Someone can be reached from the [facility] hospitalist group all hours of the day at [phone] or via ALOH[employer]. This dictation was prepared using [employer] voice recognition software. Though every attempt is made to correct errors during during dictation some may still exist. Objective - Vital Signs Vital signs: Vital Signs Temp 98.4 F 12/27/22 07:25 Pulse 85 12/27/22 07:25 Resp 16 12/27/22 07:25 BP 150/77 12/27/22 07:25 Pulse Ox 90 L 12/27/22 08:43 FiO2 Intake & Output 12/26/22 12/27/22 12/27/22 18:59 06:59 18:59 Intake Total 652 100 Output Total 150 600 Balance 502 -500 Weight 97.3 kg 97.3 kg Intake: IV 652 100 Output: Urine 100 600 Estimated Blood Loss 50 Other: Voiding Method Indwelling Catheter - Labs CBC & Chem 7: 12/27/22 06:30 12/27/22 06:30 Labs: Abnormal Lab Results - Last 24 Hours (Table) 12/26/22 12/27/22 Range/Units 15:35 06:30 Carbon Dioxide 33 H (22-30) mmol/L Creatinine 1.10 H 1.05 H (0.52-1.04) mg/dL Glucose 100 H 112 H (74-99) mg/dL
[2022-12-27] MEDS ORDERED: diphenhydrAMINE 50 MG/ML 1 ML VIAL IVP PRN (10:49)
[2022-12-27] MEDS: oxyCODONE-APAP 5-325MG 1 EACH TAB PO PRN ×3 (11:20→20:20)
[2022-12-27] MEDS: LACTATED RINGERS 1,000 ML IV SCH (16:25)
[2022-12-27] MEDS: ATORVASTATIN 10 MG TAB PO SCH (20:20)
[2022-12-28] MEDS: ACETAMINOPHEN TAB 325 MG TAB PO SCH ×4 (06:44→23:59)
[2022-12-28] MEDS: oxyCODONE-APAP 5-325MG 1 EACH TAB PO PRN ×3 (06:47→21:40)
[2022-12-28] MEDS ORDERED: SUCRALFATE 1 GM TAB PO STA (09:27)
--- NOTE | 2022-12-28 09:32 | P.PN ---
Subjective Progress Note Date: 12/28/22 Principal diagnosis: Post-Op seroma Post-Op 6 weekslumbar (L4-L5) MIS Microdiscectomy Patient seen and examined this morning. She is resting comfortably in bed. Patient did sit upright in bed yesterday and continues to deny any headache, dizziness or blurred vision. Patient may slowly increase her activity today, working with PT and sitting up in chair. LSO brace is at bedside. Surgical dressing is clean, dry, and intact. Continue to remind patient no bending, lifting, or twisting. Patient denies any numbness or tingling to bilateral lower extremities. Patient has been afebrile, denies nausea/vomiting, or chest pain. Objective - Vital Signs Vital signs: Vital Signs Temp 98.9 F 12/28/22 02:00 Pulse 79 12/28/22 02:00 Resp 16 12/28/22 02:00 BP 157/85 12/28/22 02:00 Pulse Ox 91 L 12/28/22 07:48 FiO2 Intake & Output 12/27/22 12/28/22 12/28/22 18:59 06:59 18:59 Intake Total 1080 480 Output Total 700 1800 Balance 380 -1320 Intake: Oral 1080 480 Output: Urine 700 1800 Uretheral ([place]) 700 Other: Voiding Method Indwelling Catheter Indwelling Catheter - Exam Physical Examination General: The patient is awake and alert, in no acute distress Skin: Skin is warm and dry with no obvious rashes or lesions. Eye: Pupils are equal, round and reactive to light, extra-ocular movements are intact; there is normal conjunctiva bilaterally. Neck: The neck is supple, there is no tenderness and ROM intact. Cardiovascular: There is a regular rate and rhythm. No murmur, rub or gallop is appreciated. Respiratory: Lungs are clear to auscultation, respirations are non-labored, breath sounds are equal. Gastrointestinal: Soft, non-distended, non-tender abdomen. Back: There is no tenderness to palpation in the midline, paralumbar, parathoracic or buttocks region. There is no obvious deformity . Musculoskeletal: ROM limited secondary to pain and stiffness from surgical procedure. Muscle strength in all major muscle groups of bilateral upper extr emities 5/5, bilateral lower extremities 4/5. Neurological: CN 2-12 intact. There are no obvious motor or sensory deficits. Movement and coordination equal and intact. Sensory exam to light touch intact C5-T1 and intact from L2-S1. Reflexes 2/4 in bilateral upper and lower extremities. Negative Hoffmans, babinski, and clonus signs. Psychiatric: Cooperative, appropriate mood & affect, normal judgment. - Labs CBC & Chem 7: 12/27/22 06:30 12/27/22 06:30 Labs: Abnormal Lab Results - Last 24 Hours (Table) 12/27/22 Range/Units 06:30 Creatinine 1.05 H (0.52-1.04) mg/dL Glucose 112 H (74-99) mg/dL Assessment and Plan Assessment: Postop day 2: Incision and drainage with L4-L5 laminectomy and dura repair 1. Post-Op seroma 2. Post-Op 6 weekslumbar (L4-L5) MIS Microdiscectomy Plan: -Appreciate outside [employer] consultant and team management. -Activity: Patient may slowly increase her activity today, up and about, no lifting bending twisting less than 5 lbs. Use walker or cane if needed for stability. -Daily PT/OT, increase ambulation strength and balance. -LSO brace when up and about, do not sleep in it, remove for showers. -Pain control: Adequate at this time -Meds: reviewed -GI ppx: senna, Miralax -DC verma when up and about, bedside commode if needed -DVT PPX: Heparin -Hygiene: Shower today. Maintain dressing clean and dry. Meticulous cleaning after BMs away from the incision site -Encourage IS 10x/hr -Dispo: Anticipate discharge home tomorrow with homecare *I reviewed and discussed this case with my attending Dr. Vences, whom has reviewed this chart and films and is in agreement with assessment and plan of care as outlined above. I have personally seen and examined the patient, performed the documentation and the assessment and plan as written. Number of minutes spent on the visit: 20m.
[2022-12-28] MEDS: CITALOPRAM HYDROBROMIDE 20 MG TAB PO SCH (09:50)
[2022-12-28] MEDS: FAMOTIDINE 20 MG TAB PO SCH ×2 (09:50→21:40)
[2022-12-28] MEDS: SENNOSIDES-DOCUSATE SODIUM 1 EACH TAB PO SCH (09:51)
[2022-12-28] MEDS: GABAPENTIN 300 MG CAP PO SCH ×3 (09:51→21:40)
[2022-12-28] MEDS: busPIRone HCl 5 MG TAB PO SCH ×2 (09:51→21:42)
[2022-12-28] MEDS: OXYBUTYNIN XL 5 MG TAB.ER.24 PO SCH ×2 (09:51→21:42)
[2022-12-28] MEDS: METOPROLOL TARTRATE 25 MG TAB PO SCH ×2 (09:51→21:41)
[2022-12-28] MEDS: MIDODRINE 5 MG TAB PO SCH ×3 (10:07→21:41)
[2022-12-28] MEDS: LACTATED RINGERS 1,000 ML IV SCH (10:28)
--- NOTE | 2022-12-28 14:33 | P.PN ---
Subjective Progress Note Date: 12/28/22 Patient is a 50-year-old female with COPD, A. fib status post watchman, hypertension, and chronic kidney disease stage II due to one functioning kidney who presented for lumbar seroma evacuation, patient initially had a microdiscectomy L4/5, 6 weeks ago. Patient tolerated the procedure well without any immediate postoperative complications. Patient seen and examined at bedside. She complains that she was unable to sleep last night. She is also complaining that her GERD is worse than it has been. She has had good relief with Carafate in the past. She states she is continuing to have some pain is intermittently controlled uncontrolled. Vital signs reviewed General: nontoxic, no distress, appears at stated age Cardiovascular: S1S2 reg, no murmur, positive posterior tibial pulse bilateral, Lungs: CTA bilateral, no rhonchi, no rales , no accessory muscle use Abdominal: soft, nontender to palpation, no guarding, no appreciable organomegaly Ext: no gross muscle atrophy, no edema, no contractures Neuro: CN II-XI grossly intact, no focal neuro deficits Psych: Alert, oriented, flat affect Assessment: Patient is a 52 yo female here for Lumbar I and D, L4/5 laminectomy witth dural repair POD # 1 Paroxysmal atrial fibrillation status post watchman Insomnia Chronic hypotension requiring Midodrin COPD without acute exacerbation CKD Stage II with solitary kidney Dyslipidemia Imaging: None to review Data Review: Laboratory analysis reviewed. CBC unremarkable. BMP remarkable for creatinine 1.05 appears to be at baseline, glucose 112. Plan: Midodrin 5 mg 3 times daily, add to hold for SBP >125 Lopressor 25 mg twice daily Ditropan 5 mg twice daily Carafate X 1 for GERD Melatonin 5 mg tonight Thank you for allowing us to participate in the care of this pleasant patient. Do not hesitate to contact us with questions. Someone can be reached from the [facility] hospitalist group all hours of the day at [phone] or via Swrve. This dictation was prepared using [employer] voice recognition software. Though every attempt is made to correct errors during during dictation some may still exist. Objective - Vital Signs Vital signs: Vital Signs Temp 98.6 F 12/28/22 08:00 Pulse 73 12/28/22 08:00 Resp 17 12/28/22 08:00 BP 148/87 12/28/22 08:00 Pulse Ox 91 L 12/28/22 08:00 FiO2 Intake & Output 12/27/22 12/28/22 12/28/22 18:59 06:59 18:59 Intake Total 1080 480 Output Total 700 1800 Balance 380 -1320 Intake: Oral 1080 480 Output: Urine 700 1800 Uretheral ([place]) 700 Other: Voiding Method Indwelling Catheter Indwelling Catheter Indwelling Catheter - Labs CBC & Chem 7: 12/27/22 06:30 12/27/22 06:30
[2022-12-28] MEDS: CYCLOBENZAPRINE 5 MG TAB PO PRN (17:17)
[2022-12-28] MEDS ORDERED: MELATONIN 5 MG TABLET PO SCH (21:00)
[2022-12-28] MEDS: ATORVASTATIN 10 MG TAB PO SCH (21:40)
[2022-12-29] MEDS: ACETAMINOPHEN TAB 325 MG TAB PO SCH ×2 (05:31→12:16)
[2022-12-29] MEDS: CYCLOBENZAPRINE 5 MG TAB PO PRN (05:34)
[2022-12-29] MEDS: oxyCODONE-APAP 5-325MG 1 EACH TAB PO PRN ×2 (05:34→13:52)
--- NOTE | 2022-12-29 07:41 | P.PN ---
Subjective Progress Note Date: 12/29/22 Principal diagnosis: Post-Op seroma Post-Op 6 weekslumbar (L4-L5) MIS Microdiscectomy Patient seen and examined this morning. She is resting comfortably in bed. Patient was able to work with physical therapy yesterday, she states she tolerated activity well. She does report that the brace side pads were digging into her while sitting, pads have been removed. Surgical dressing has been changed this morning. Surgical incision is well approximated shoot sutures are intact, no drainage noted. Continue to remind patient no bending, lifting, or twisting. Patient denies any numbness or tingling to bilateral lower extremities. She states she is looking forward to going home, she has family support to assist her. Patient has been afebrile, denies nausea/vomiting, or chest pain. Objective - Vital Signs Vital signs: Vital Signs Temp 98.9 F 12/29/22 01:59 Pulse 80 12/29/22 01:59 Resp 16 12/28/22 19:10 BP 101/71 12/29/22 01:59 Pulse Ox 92 L 12/29/22 01:59 FiO2 Intake & Output 12/28/22 12/29/22 12/29/22 18:59 06:59 18:59 Intake Total 120 Balance 120 Intake: Intake, IV Titration 120 Amount Lactated Ringers 1,000 ml 120 @ 20 mls/hr IV .Q24H REPLACED BY [facility] Rx#:[id number] Other: Voiding Method Indwelling Catheter Toilet # Voids 3 - Exam Physical Examination General: The patient is awake and alert, in no acute distress Skin: Skin is warm and dry with no obvious rashes or lesions. Surgical incision to the lumbar spine, dressing is clean dry and intact. Eye: Pupils are equal, round and reactive to light, extra-ocular movements are intact; there is normal conjunctiva bilaterally. Neck: The neck is supple, there is no tenderness and ROM intact. Cardiovascular: There is a regular rate and rhythm. No murmur, rub or gallop is appreciated. Respiratory: Lungs are clear to auscultation, respirations are non-labored, breath sounds are equal. Gastrointestinal: Soft, non-distended, non-tender abdomen. Back: There is no tenderness to palpation in the midline, paralumbar, parathoracic or buttocks region. There is no obvious deformity . Musculoskeletal: ROM limited secondary to pain and stiffness from surgical procedure. Muscle strength in all major muscle groups of bilateral upper extremities 5/5, bilateral lower extremities 4/5. Neurological: CN 2-12 intact. There are no obvious motor or sensory deficits. Movement and coordination equal and intact. Sensory exam to light touch intact C5-T1 and intact from L2-S1. Reflexes 2/4 in bilateral upper and lower extremities. Negative Hoffmans, babinski, and clonus signs. Psychiatric: Cooperative, appropriate mood & affect, normal judgment. - Labs CBC & Chem 7: 12/27/22 06:30 12/27/22 06:30 Assessment and Plan Assessment: Postop day 3: Incision and drainage with L4-L5 laminectomy and dura repair 1. Post-Op seroma 2. Post-Op 6 weekslumbar (L4-L5) MIS Microdiscectomy Plan: -Appreciate cancer program consultant and team management. -Activity: Patient may slowly increase her activity today, up and about, no lifting bending twisting less than 5 lbs. Use walker or cane if needed for stability. -Daily PT/OT, increase ambulation strength and balance. -LSO brace when up and about, do not sleep in it, remove for showers. -Pain control: Adequate at this time -Meds: reviewed -GI ppx: senna, Miralax -DVT PPX: Heparin -Hygiene: Shower today. Maintain dressing clean and dry. Meticulous cleaning after BMs away from the incision site -Encourage IS 10x/hr -Dispo: Anticipate discharge home later today with homecare *I reviewed and discussed this case with my attending Dr. Vences, whom has reviewed this chart and films and is in agreement with assessment and plan of care as outlined above. I have personally seen and examined the patient, performed the documentation and the assessment and plan as written. Number of minutes spent on the visit: 20m.
[2022-12-29] MEDS: SENNOSIDES-DOCUSATE SODIUM 1 EACH TAB PO SCH (10:02)
[2022-12-29] MEDS: GABAPENTIN 300 MG CAP PO SCH ×2 (10:09→14:58)
[2022-12-29] MEDS: MIDODRINE 5 MG TAB PO SCH ×2 (10:09→14:58)
[2022-12-29] MEDS: FAMOTIDINE 20 MG TAB PO SCH (10:10)
[2022-12-29] MEDS: OXYBUTYNIN XL 5 MG TAB.ER.24 PO SCH (10:10)
[2022-12-29] MEDS: busPIRone HCl 5 MG TAB PO SCH (10:10)
[2022-12-29] MEDS: METOPROLOL TARTRATE 25 MG TAB PO SCH (10:10)
[2022-12-29] MEDS: CITALOPRAM HYDROBROMIDE 20 MG TAB PO SCH (10:10)
--- NOTE | 2022-12-29 11:48 | P.DS ---
Providers Date of admission: 12/27/22 08:59 Expected date of discharge: 12/29/22 Attending physician: Emil Vences DO Consults: 12/26/22 18:16 Consult Physician Routine Consulting Provider: Joana Lujan Consult Reason/Comments: medical management s/p lumbar I&D dural repair Do you want consulting provider notified?: Yes Primary care physician: Jamila Torres Hospital Course: Date of admission: 12/26/2022 Date of discharge: 12/29/2022 Admission diagnosis: Post operative seroma; LE weakness; low back pain; status post lumbar L4-L5 MIS microdiscectomy Discharge diagnosis: Same Attending physician: Dr. Vences Surgical procedures: Incision and drainage and irrigation and debridement lumbar spine Brief history: Patient is a 52-year-old female with a history of postoperative seroma. At this point patient has failed conservative treatment measures and has opted to proceed with a elective incision and drainage and irrigation and debridement lumbar spine. Hospital course: Details of patient's surgery can be found in operative report. Patient tolerated the procedure well and was subsequently transported to ortho pedic floor. Patient's orthopeidc and medical care was provided daily. Patient had daily laboratory tests performed for evaluation of overall blood counts. Patient had daily physical therapy to include strengthening range of motion as well as education with walker ambulation. Patient was noted to have a relatively uneventful postoperative course. Patient reported satisfactory pain control with oral pain medications by postoperative day 3. Patient showed satisfactory progress with physical therapy. Patient moved steadily through the program and had no difficulty meeting the goals by postoperative day 3. Given patient's otherwise satisfactory course and having met physical therapy goals, plan is to discharge patient home with health services on postoperative day 3. Discharge condition/disposition: Patient will be discharged home without services in stable condition. Discharge medications: Instructions are given on resumption of patient's normal daily medications per primary care recommendation, in addition patient will be prescribed oxycodone; senna; Duricef. Patient already has gabapentin and Flexeril at home. Spine Discharge and Recovery Instructions Date of Surgery: 12/26/2022 Diagnosis: Post operative seroma; LE weakness; low back pain; status post lumbar L4-L5 MIS microdiscectomy Procedure: Incision and drainage and irrigation debridement lumbar spine] Medications: See medication list All medication refills should be obtained through your primary care doctor or your clinic spine surgeon. Please discuss prescription refills at your follow up appointment. Do not call the hospital for medication refills. Dressing: Leave your dressing in place for a total of 5 days post operatively. Then you may remove your dressing and leave open to air. Keep the area clean and if not able to keep area clean, then cover with sterile gauze and tape. Showering: You may shower 3 days after your procedure allowing soap and water to run over incision. Do not scrub. Do not soak. Blot dry. Follow up: Please confirm a follow up appointment with your surgeon 3 weeks post operatively. Please make an appointment to follow up with your PCP in 1-2 weeks after surgery for evaluation 3 phase, 3-week plan POST OP WEEKS 1-3 1. Lifting/carrying/pushing/pulling limited to less than 5 pounds. 2. Do not sit for longer than 15 minutes at one time. Get up and walk around. Prolonged sitting is NOT advised. If you lay down, see if you can tolerate laying down on you front (belly side) 3. Walk for periods of 15 minutes = 1 mile but no longer; do it multiple times times each day. 4. Ice your low back after activity. POST OP WEEKS 3-6 1. Lifting limited to less than 20 pounds. 2. Do not sit for longer than 30 minutes at a time. Frequently change positions. Use a sit-to stand workstation or take frequent breaks from sitting if you have returned to work. 3. Walk for 30 minutes each day. If possible, do these three or more times a day POST OP WEEKS 6+ At your 6-week appointment we will give you a physical therapy referral to focus on a core stabilization and strengthening program. You should also work on leg & buttock strengthening, hamstring & quadriceps stretching, and continue a low impact aerobic activity program such as swimming, walking, or riding a stationary bicycle. During the initial 6 weeks after your surgery, you are at the highest risk of re-injuring your spine. You should generally avoid BLTs (bending, lifting and twisting combination motions) and follow the above guidelines to reduce the chance of reinjury. You can anticipate post op appointments in our office at approximately 3 weeks and 6 weeks after your surgery. INCISION CARE: If your incision is not draining you do NOT need to cover it with a dressing. Keep your incision clean, dry and intact. In most cases, we apply skin glue, romeo or sutures to the incision at the time of surgery. This will be like a crust or have the appearance of a scab and will fall off in time on its own. The stitches or romeo need to be removed at 3 weeks post op appointment. You may begin to shower 3 days after surgery (this allows the glue to wallis well). However, please avoid scrubbing the incision site or peeling off any of the skin glue. This will ensure optimal healing of your incision. Also, during this time avoid soaking the incision area in water - this includes swimming pools, hot tubs or baths. No ointments, lotions or oils on the incision until your surgeon allows. Leave romeo, sutures or glue in place. Neurological dysfunction that comes on suddenly can also be a sign of a stroke. Below some common symptoms of a stroke are listed: B - balance difficulty such as sudden onset walking or leaning to one side - NEW E - eye problem such as sudden double vision or trouble seeing on one side - NEW F - Facial weakness or numbness on one side - NEW A - Arm or leg weakness or numbness on one side - NEW S - Slurred speech or difficulty with word finding - NEW T - Time is BRAIN! Call 911 as soon as you recognize these symptoms Diet: Consume a regular diet rich in vegetables and lean protein such as chicken or fish. You should consume in a ratio of approximately 20% fats|40% carbohydrates|40%protein. Vegetables, sweet potatoes, brown rice or quinoa are examples of good carbohydrates. Chips, white bread, cookies and sweets/sugar are examples of bad carbohydrates. Limit your bad carbs, go wild with good carbs. "Life's Simple 7" Guidelines as per [place] [employer] These will help you reclaim your life after surgery and reduction furnace operator helper in your recovery, keeping in mind your restrictions. (1) Get Active. Physical activity can help people lose weight, control high blood pressure and cholesterol, feel emotionally better, and sleep better. (2) Control Cholesterol. Avoid a diet high in saturated fat, trans fat, & cholesterol. Limit whole milk & cream, ice cream, butter, egg yolks, processed meats (like sausage and hot dogs), and fatty meats. Choose healthy foods that are low in saturated fat, trans fat and cholesterol which include: Fruits and vegetables, fiber rich grain products (like whole grain pasta and brown rice), lean meat such as chicken, fish, nuts, seeds, and legumes. (3) Eat Better. Eat small portions. Shop at the grocery with a list and do not stray from it. Tips for a healthy diet include: Limit sodium intake to less than 1500mg daily, avoid prepackaged, processed, and fast foods, choose a diet rich in fruits, vegetables, and whole grain, high fiber foods, and limit saturated & cholesterol in your diet. (4) Manage Blood Pressure. If you have high blood pressure, you should have a cuff at home so that you can check your blood pressure regularly. Be sure you have a good cuff. An arm one is generally better than a wrist one. Bring the cuff to a doctor's appointment to validate that the measurements that your cuff are taking are accurate. Take your blood pressure twice daily when you are sitting down and relaxing. Record the numbers in a log and bring this log with you to your doctors' appointments. (5) Lose Weight if your BMI is above 25. A healthy BMI is between 19-25. To calculate Your BMI, you may use a Standard BMI Calculator on the NIH BMI website: <www.nhlbi.nih.gov/guidelines/obesity/BMI/bmicalc.htm>. Weigh oneself daily. If you are overweight, set a goal to lose weight. A pound a week loss if needed is a good target. (6) Reduce Blood Sugar. Limit foods and liquids with "added sugars." (Added s ugars include sucrose, fructose, glucose, maltose, dextrose, high fructose corn syrup, corn syrup, concentrated fruit juice and honey). (7) Stop Smoking. If you smoke, quitting smoking is one of the best things that you can do for your health. Smoking increases your risk of heart attack, stroke, and peripheral vascular disease, which is a build-up of plaque in your arteries. Please discard all the cigarettes and lighters in your house. Have a plan for what you will do when you have the urge to smoke. Direct and second- hand smoke shortens your life as well as the lives of your family, friends and others around you. For your health and the health of those around you, please consider quitting! Proper Bending Body Mechanics: Maintain a wide stance with one foot slightly in front of the other. Keep your back straight. Bend utilizing the strength in your hips and knees. Do not bend at the waist. Maintain the lifted object at your waist-level close to your body. Avoid lifting weight that causes immediately pain or pain anywhere in the body afterwards. Smoking/Nicotine If there was ever one thing that you could do to increase your overall health, decrease your risk of cardiovascular problems by about 39% the second you make the choice, it is to STOP SMOKING. Your body's most instant gratification is the second you stop smoking. We have all heard the studies, read the articles but it is true, smoking is extremely bad for your overall health, and moreover it is detrimental to your bone health. Nicotine, IN ANY FORM, kills bone cells, prevents your body from healing fractures, and significantly prolongs healing after surgery. In spine surgery specifically, it increases your risk of not healing your bones to create a fusion and increases your risk of having a revision surgery due to this up to 60%. I know it is hard. I know it feels impossible. But there are ways. Take control of your life. We are here to help you through it. And when you are ready, ask us and we can direct you to help if you desire. Use the START Plan to Quit Smoking (please visit the Helpguide.org website listed below for more information): S = Set a quit date. Choose a date within the next 2 weeks, so you have enough time to prepare without losing your motivation to quit. If you mainly smoke at work, quit on the weekend, so you have a few days to adjust to the change. T = Tell family, friends, and co-workers that you plan to quit. Let your friends and family in on your plan to quit smoking and tell them you need their support and encouragement to stop. Look for a quit jack who wants to stop smoking as well. You can help each other get through the rough times. A = Anticipate and plan for the challenges you'll face while quitting. Most people who begin smoking again do so within the first 3 months. You can help yourself make it through by preparing ahead for common challenges, such as nicotine withdrawal and cigarette cravings. R = Remove cigarettes and other tobacco products from your home, car, and work. Throw away all your cigarettes (no emergency pack!), lighters, ashtrays, and matches. Wash your clothes and freshen up anything that smells like smoke. Shampoo your car, clean your drapes and carpet, and steam your furniture. T = Talk to your doctor about getting help to quit. Your doctor can prescribe medication to help with withdrawal and suggest other alternatives. If you can't see a doctor, you can get many products over the counter at your local pharmacy or grocery store, including the nicotine patch, nicotine lozenges, and nicotine gum. Resources for Quitting Smoking: <https://www.[place].gov/documents/[facility]/Quit_Tobacco _Resources_for_patients_313480_7.pdf> Supplementation: Take recommended dosages of Vitamin D and Calcium to help fortify your bones and help them to heal. See your health maintenance packet for dosages and recommended levels. DVT/VTE prophylaxis: You will be given compression stockings from the hospital. Wear these daily for the first two weeks after surgery. You may take them off at night. You may be prescribed a medication to help thin your blood. Take this as directed. If you are not prescribed this medication, early and frequent ambulation has been shown to be the best prophylaxis to deep vein thrombosis and sequelae related to this event. Assessment: Postoperative seroma; status post lumbar L4-L5 MIS microdiscectomy; lower extremity pain and weakness; low back pain Procedures: I and D with irrigation debridement of lumbar spine Patient Condition at Discharge: Good Plan - Discharge Summary Discharge Rx Participant: No New Discharge Prescriptions: No Action Oxybutynin Xl [Ditropan XL] 5 mg PO BID Gabapentin 600 mg PO TID Metoprolol Tartrate [Lopressor] 25 mg PO BID busPIRone HCL [Buspar] 15 mg PO BID Citalopram Hydrobromide [CeleXA] 20 mg PO DAILY Atorvastatin [Lipitor] 10 mg PO HS Albuterol Inhaler [Ventolin Hfa Inhaler] 1 - 2 puff INHALATION Q6H PRN PRN Reason: Shortness Of Breath Sucralfate [Carafate] 1 gm PO TID Midodrine [ProAmatine] 5 mg PO TID Famotidine [Pepcid] 20 mg PO BID Aspirin 81 mg PO DAILY Rizatriptan Benzoate [Maxalt] 10 mg PO DIRECTED PRN PRN Reason: Migraine Headache Vit No.180/Iron/Folic [ Plus Tablet] 1 each PO DAILY Cyclobenzaprine [Flexeril] 10 mg PO TID PRN #40 tab PRN Reason: Spasms Discharge Medication List Albuterol Inhaler [Ventolin Hfa Inhaler] 1 - 2 puff INHALATION Q6H PRN 10/11/22 [History] Aspirin 81 mg PO DAILY 10/11/22 [History] Atorvastatin [Lipitor] 10 mg PO HS 10/11/22 [History] Citalopram Hydrobromide [CeleXA] 20 mg PO DAILY 10/11/22 [History] Famotidine [Pepcid] 20 mg PO BID 10/11/22 [History] Gabapentin 600 mg PO TID 10/11/22 [History] Metoprolol Tartrate [Lopressor] 25 mg PO BID 10/11/22 [History] Midodrine [ProAmatine] 5 mg PO TID 10/11/22 [History] Oxybutynin Xl [Ditropan XL] 5 mg PO BID 10/11/22 [History] Vit No.180/Iron/Folic [ Plus Tablet] 1 each PO DAILY 10/11/22 [History] Rizatriptan Benzoate [Maxalt] 10 mg PO DIRECTED PRN 10/11/22 [History] Sucralfate [Carafate] 1 gm PO TID 10/11/22 [History] busPIRone HCL [Buspar] 15 mg PO BID 10/11/22 [History] Cyclobenzaprine [Flexeril] 10 mg PO TID PRN #40 tab 10/13/22 [Rx] Follow up Appointment(s)/Referral(s): Emil Vences DO [Doctor of Osteopathic Medicine] - 01/11/23 8:30 am Activity/Diet/Wound Care/Special Instructions: Dressing may removed beginning 01/01/2023. May let water run down over incision and shower when dressing is removed Monday. Spine Discharge and Recovery Instructions Date of Surgery: 12/26/2022 Diagnosis: Post operative seroma; LE weakness; low back pain; status post lumbar L4-L5 MIS microdiscectomy Procedure: Incision and drainage and irrigation debridement lumbar spine Medications: See medication list All medication refills should be obtained through your primary care doctor or your clinic spine surgeon. Please discuss prescription refills at your follow up appointment. Do not call the hospital for medication refills. Dressing: Leave your dressing in place for a total of 5 days post operatively. Then you may remove your dressing and leave open to air. Keep the area clean and if not able to keep area clean, then cover with sterile gauze and tape. Showering: You may shower 3 days after your procedure allowing soap and water to run over incision. Do not scrub. Do not soak. Blot dry. Follow up: Please confirm a follow up appointment with your surgeon 3 weeks post operatively. Please make an appointment to follow up with your PCP in 1-2 weeks after surgery for evaluation 3 phase, 3-week plan POST OP WEEKS 1-3 1. Lifting/carrying/pushing/pulling limited to less than 5 pounds. 2. Do not sit for longer than 15 minutes at one time. Get up and walk around. Prolonged sitting is NOT advised. If you lay down, see if you can tolerate laying down on you front (belly side) 3. Walk for periods of 15 minutes = 1 mile but no longer; do it multiple times times each day. 4. Ice your low back after activity. POST OP WEEKS 3-6 1. Lifting limited to less than 20 pounds. 2. Do not sit for longer than 30 minutes at a time. Frequently change positions. Use a sit-to stand workstation or take frequent breaks from sitting if you have returned to work. 3. Walk for 30 minutes each day. If possible, do these three or more times a day POST OP WEEKS 6+ At your 6-week appointment we will give you a physical therapy referral to focus on a core stabilization and strengthening program. You should also work on leg & buttock strengthening, hamstring & quadriceps stretching, and continue a low impact aerobic activity program such as swimming, walking, or riding a stationary bicycle. During the initial 6 weeks after your surgery, you are at the highest risk of re-injuring your spine. You should generally avoid BLTs (bending, lifting and twisting combination motions) and follow the above guidelines to reduce the chance of reinjury. You can anticipate post op appointments in our office at approximately 3 weeks and 6 weeks after your surgery. INCISION CARE: If your incision is not draining you do NOT need to cover it with a dressing. Keep your incision clean, dry and intact. In most cases, we apply skin glue, romeo or sutures to the incision at the time of surgery. This will be like a crust or have the appearance of a scab and will fall off in time on its own. The stitches or romeo need to be removed at 3 weeks post op appointment. You may begin to shower 3 days after surgery (this allows the glue to wallis well). However, please avoid scrubbing the incision site or peeling off any of the skin glue. This will ensure optimal healing of your incision. Also, during this time avoid soaking the incision area in water - this includes swimming pools, hot tubs or baths. No ointments, lotions or oils on the incision until your surgeon allows. Leave romeo, sutures or glue in place. Neurological dysfunction that comes on suddenly can also be a sign of a stroke. Below some common symptoms of a stroke are listed: B - balance difficulty such as sudden onset walking or leaning to one side - NEW E - eye problem such as sudden double vision or trouble seeing on one side - NEW F - Facial weakness or numbness on one side - NEW A - Arm or leg weakness or numbness on one side - NEW S - Slurred speech or difficulty with word finding - NEW T - Time is BRAIN! Call 911 as soon as you recognize these symptoms Diet: Consume a regular diet rich in vegetables and lean protein such as chicken or fish. You should consume in a ratio of approximately 20% fats|40% carbohydrates|40%protein. Vegetables, sweet potatoes, brown rice or quinoa are examples of good carbohydrates. Chips, white bread, cookies and sweets/sugar are examples of bad carbohydrates. Limit your bad carbs, go wild with good carbs. "Life's Simple 7" Guidelines as per [place] [employer] These will help you reclaim your life after surgery and reduction furnace operator helper in your recovery, keeping in mind your restrictions. (1) Get Active. Physical activity can help people lose weight, control high blood pressure and cholesterol, feel emotionally better, and sleep better. (2) Control Cholesterol. Avoid a diet high in saturated fat, trans fat, & cholesterol. Limit whole milk & cream, ice cream, butter, egg yolks, processed meats (like sausage and hot dogs), and fatty meats. Choose healthy foods that are low in saturated fat, trans fat and cholesterol which include: Fruits and vegetables, fiber rich grain products (like whole grain pasta and brown rice), lean meat such as chicken, fish, nuts, seeds, and legumes. (3) Eat Better. Eat small portions. Shop at the grocery with a list and do not stray from it. Tips for a healthy diet include: Limit sodium intake to less than 1500mg daily, avoid prepackaged, processed, and fast foods, choose a diet rich in fruits, vegetables, and whole grain, high fiber foods, and limit saturated & cholesterol in your diet. (4) Manage Blood Pressure. If you have high blood pressure, you should have a cuff at home so that you can check your blood pressure regularly. Be sure you have a good cuff. An arm one is generally better than a wrist one. Bring the cuff to a doctor's appointment to validate that the measurements that your cuff are taking are accurate. Take your blood pressure twice daily when you are sitting down and relaxing. Record the numbers in a log and bring this log with you to your doctors' appointments. (5) Lose Weight if your BMI is above 25. A healthy BMI is between 19-25. To calculate Your BMI, you may use a Standard BMI Calculator on the NIH BMI website: <www.nhlbi.nih.gov/guidelines/obesity/BMI/bmicalc.htm>. Weigh oneself daily. If you are overweight, set a goal to lose weight. A pound a week loss if needed is a good target. (6) Reduce Blood Sugar. Limit foods and liquids with "added sugars." (Added sugars include sucrose, fructose, glucose, maltose, dextrose, high fructose corn syrup, corn syrup, concentrated fruit juice and honey). (7) Stop Smoking. If you smoke, quitting smoking is one of the best things that you can do for your health. Smoking increases your risk of heart attack, stroke, and peripheral vascular disease, which is a build-up of plaque in your arteries. Please discard all the cigarettes and lighters in your house. Have a plan for what you will do when you have the urge to smoke. Direct and second- hand smoke shortens your life as well as the lives of your family, friends and others around you. For your health and the health of those around you, please consider quitting! Proper Bending Body Mechanics: Maintain a wide stance with one foot slightly in front of the other. Keep your back straight. Bend utilizing the strength in your hips and knees. Do not bend at the waist. Maintain the lifted object at your waist-level close to your body. Avoid lifting weight that causes immediately pain or pain anywhere in the body afterwards. Smoking/Nicotine If there was ever one thing that you could do to increase your overall health, decrease your risk of cardiovascular problems by about 39% the second you make the choice, it is to STOP SMOKING. Your body's most instant gratification is the second you stop smoking. We have all heard the studies, read the articles but it is true, smoking is extremely bad for your overall health, and moreover it is detrimental to your bone health. Nicotine, IN ANY FORM, kills bone cells, prevents your body from healing fractures, and significantly prolongs healing after surgery. In spine surgery specifically, it increases your risk of not healing your bones to create a fusion and increases your risk of having a revision surgery due to this up to 60%. I know it is hard. I know it feels impossible. But there are ways. Take control of your life. We are here to help you through it. And when you are ready, ask us and we can direct you to help if you desire. Use the START Plan to Quit Smoking (please visit the Helpguide.org website listed below for more information): S = Set a quit date. Choose a date within the next 2 weeks, so you have enough time to prepare without losing your motivation to quit. If you mainly smoke at work, quit on the weekend, so you have a few days to adjust to the change. T = Tell family, friends, and co-workers that you plan to quit. Let your friends and family in on your plan to quit smoking and tell them you need their support and encouragement to stop. Look for a quit jack who wants to stop smoking as well. You can help each other get through the rough times. A = Anticipate and plan for the challenges you'll face while quitting. Most people who begin smoking again do so within the first 3 months. You can help yourself make it through by preparing ahead for common challenges, such as nicotine withdrawal and cigarette cravings. R = Remove cigarettes and other tobacco products from your home, car, and work. Throw away all your cigarettes (no emergency pack!), lighters, ashtrays, and matches. Wash your clothes and freshen up anything that smells like smoke. Shampoo your car, clean your drapes and carpet, and steam your furniture. T = Talk to your doctor about getting help to quit. Your doctor can prescribe medication to help with withdrawal and suggest other alternatives. If you can't see a doctor, you can get many products over the counter at your local pharmacy or grocery store, including the nicotine patch, nicotine lozenges, and nicotine gum. Resources for Quitting Smoking: <https://www.[place].gov/documents/[facility]/Quit_Tobacco_Re sources_for_patients_313480_7.pdf> Supplementation: Take recommended dosages of Vitamin D and Calcium to help fortify your bones and help them to heal. See your health maintenance packet for dosages and recommended levels. DVT/VTE prophylaxis: You will be given compression stockings from the hospital. Wear these daily for the first two weeks after surgery. You may take them off at night. You may be prescribed a medication to help thin your blood. Take this as directed. If you are not prescribed this medication, early and frequent ambulation has been shown to be the best prophylaxis to deep vein thrombosis and sequelae related to this event. Discharge Disposition: HOME WITH HOME HEALTH SERVICES
[2022-12-29 12:51] VITALS: BP 110/66; PULSE 88; RESP 18; TEMP 99.2
--- NOTE | 2022-12-29 14:58 | P.PN ---
Subjective Progress Note Date: 12/29/22 Patient seen and examined at bedside. Patient denies chest pain shortness of breath nausea vomiting fevers or chills. Patient continues have back pain. Patient is eager to go home today. Objective - Vital Signs Vital signs: Vital Signs Temp 99.2 F 12/29/22 12:49 Pulse 88 12/29/22 12:49 Resp 18 12/29/22 12:49 BP 110/66 12/29/22 12:49 Pulse Ox 96 12/29/22 13:03 FiO2 Intake & Output 12/28/22 12/29/22 12/29/22 18:59 06:59 18:59 Intake Total 120 118 Balance 120 118 Intake: Intake, IV Titration 120 Amount Lactated Ringers 1,000 ml 120 @ 20 mls/hr IV .Q24H [facility] Rx#:[id number] Oral 118 Other: Voiding Method Indwelling Catheter Toilet Toilet # Voids 3 - Exam General: [non toxic], [no distress], [appears at stated age] Derm: [warm], [dry] Head: [atraumatic], [normocephalic], [symmetric] Eyes: [EOMI], [no lid lag], [anicteric sclera] Mouth: [no lip lesion], [mucus membranes moist] Cardiovascular: [S1S2 reg], [no murmur], [positive posterior tibial pulse bilateral], Lungs: [CTA bilateral], [no rhonchi, no rales] , [no accessory muscle use] Abdominal: [soft], [ nontender to palpation], [no guarding], [no appreciable organomegaly] Ext: [no gross muscle atrophy], [no edema], [no contractures] Neuro: [ CN II-XI grossly intact], [no focal neuro deficits] Psych: [Alert], [oriented], [appropriate affect] - Labs CBC & Chem 7: 12/27/22 06:30 12/27/22 06:30 Assessment and Plan Assessment: Patient is a 52 yo female here for Lumbar I and D, L4/5 laminectomy witth dural repair POD # 1 Paroxysmal atrial fibrillation status post watchman Insomnia Chronic hypotension requiring Midodrin COPD without acute exacerbation CKD Stage II with solitary kidney Dyslipidemia Plan: Midodrin 5 mg 3 times daily, add to hold for SBP >125 Lopressor 25 mg twice daily Ditropan 5 mg twice daily Carafate X 1 for GERD Melatonin 5 mg tonight May discharge from the medical standpoint Thank you for allowing us to participate in the care of this pleasant patient. Do not hesitate to contact us with questions. Someone can be reached from the [facility] hospitalist group all hours of the day at [phone] or via [employer].
--- NOTE | 2022-12-30 12:37 | P.OP ---
Date of Procedure: 12/26/22 Preoperative Diagnosis: 1. Post operative seroma lumbar spine, compressive 2. LLE radiculopathy Postoperative Diagnosis: 1. Spontaneous dural leak with compressive fluid formation 2. deep facial dehiscence s/p ffs Procedure(s) Performed: 1. Revision laminectomy L4-5 for exploration and debridment with Dural repair with patch graft (56999, [id number]) 2. Irrigation and excisional debridment of skin, soft tissue, muscle and bone Lumbar spine [id number] using the following: -Knife used to excise skin and necrotic soft tissue as well as capsule formation -Curette used to scrape bone and muscle -Rongure and kerrisons used to remove bone 3. Revision discectomy L4-5 (62692) Implants: NOne Anesthesia: LUDMILAA Surgeon: Emil Vences Estimated Blood Loss (ml): 25 IV fluids (ml): 1,000 Urine output (ml): 0 Pathology: none sent Condition: stable Disposition: PACU Indications for Procedure: Monica Otto is a 52-year-old female presenting for evaluation of pain in her low back status post L4 5 microdiscectomy with large fluid collection It was my pleasure to have seen and examined Monica. SHe apparently had a fall at home and went to ED where she was assessed and sent home. Two days later she represented to ED with increased swelling in her low back and pain in her legs. She was again assessed, Ortho/Spine was never notified and she was sent home. She presented then again to the office with a large expanding fluid collection in her low back at the incision site without drainage. She C/O minor PINK here and there but no blurred or change in vision and no dizziness n/v at the time. In our visit today we have had a chance to go over subjective complaints, physical examination findings and treatments including the natural course history without intervention and various interventional options. The patients imaging demonstrates no changes on x-ray good decompression MRI shows large fluid collection stemming from surgical site and could be seroma vs CSF fluid. There is facial dehiscence noted. On physical exam, Sonny he demonstrates large seromatous fluid collection subcutaneously which is taut and causing her a lot of pain. I have explained to the patient that as their condition progresses it will cause further neurological deficits and eventual paralysis. Based on the patients imaging, physical exam, and the rapid progression and disabling nature of their symptoms, at this time I recommend surgery in the form or a: incision and drainage with irrigation and debridement lumbar spineI discussed the risk and benefits of this procedure at length with Monica. The patient agreed to considered pursuing the procedure abovementioned. Prior to surgery, she should follow up with her PCP (Cardio, ID, IM etc) for clearance. Questions were invited and answered, and the patient wishes to proceed as outlined below. Currently, I am recommendin.URGENT Incision and drainage with irrigation and debridement lumbar spine Description of Procedure: The patient was seen and examined in the preoperative area. All preoperative protocols were followed. Informed consent was obtained, risks and benefits of the procedure were discussed at length. Risks including bleeding infection damage to the surrounding tissue and risk of re-operation were discussed with the patient. Risk of anesthesia up to and including was discussed with the patient. These are outlined in the risk review. They were willing to accept these risks and all the risks of surgery. The patient was given a weight-based dose of antibiotics in the form of 2 g Ancef. The patient was seen and evaluated by the anesthesia team who deemed them fit for surgery. The site was marked, the patient was willing to proceed with the procedure. The patient was transferred to the operative suite by the Department of anesthesia. They were then drifted off to sleep by the department anesthesia and GETA was performed. The patient tolerated this well. Batres catheter was placed by nursing staff, a-traumatically. Once confirmation of lines and ventilation the patient was transferred to a prone Trios spine table very carefully. The head was secured and stable. Xray confirmed alignment. All bony prominences including wrists, elbows, axilla, chest, hips, and thighs, and feet were padded very well. Special attention was paid to the genitalia, and these were padded accordingly. SCDs were placed on bilateral lower extremities and were connected. Arms were well padded and placed at 90/90 up and out and well padded. Safety strap and tape placed on the patient. Once in position, again we confirmed good ventilation capabilities and that lines were running appropriately. The patients lumbosacral pelvic was then exposed. Hair was removed for incision. 1010s were placed outlining the incision site. Standard alcohol was used to clean the incision site and allowed to dry. C-arm was used to bio-rodrigo the patient and confirm level for incision which was marked with a skin marker. Operative briefing was performed with all teams and everyone in agreement to proceed. The patient was then prepped and draped in a normal sterile fashion. Timeout was then performed, and all parties agreed with the procedure to be performed. An 18 gague needle was then used to aspirate the area so as to assess what the fluid collection was. Clear fluid was returned. CSF was suspected. We carfully and slowly allowed some of this to drain while watching her blood pressure and vitals closely as we did not want a sharp change in CSF pressure to cause issues. Once some of the fluid had been drained, skin incision was made midline over the previously marked and made incision. Dissection was essentially done already by the fluid collection as there was a large walled off area. The deep subQ and deep facial tissue was dehised and all sutures had josue led in what appeared to be a more catastrophic fall than was originally communicated to us. Retractors were placed and upon futher investigation the wound bed and previous laminotomy was in good order. No fractures were noted but the CSF leak was not coming from the original wound bed. It was leaking from under the lamina and interlaminar space of L4-5 on the opposite side. Rongure was used to sacrafice the midline at the interlaminar space of L4-5 and then a high speed zhanna used to widen the laminotomy and leminectomy to bilateral so as to visualize the leak. Just off midline on the left hand side (opposite side of original laminotomy) there was a sheer tear of the dura causing leak. This appeared to be due to pinching of the dura between the lamina of L4 and L5 due to where it was located and its morphology. Widening of the laminectomy was performed using zhanna and kerrisions. 6-0 prolene suture was then used to primarily close the dura in an interrupted fashion. Once this was done a valsalva to 40 mmHg was done and there was minimal leakage. A fat graft was then harvested from a fresh bed of subQ tissue and was sutured into the dura and over the defect. Again a valsalva was done to 40 mmHg and there was no further leak. As we then investigated around the wound bed it was noted that there was recurrent disc herniation as well on the right in the original wound bed. This was removed with a pituitary and any free fragments were removed. We then performed hemostasis and copiously irrigated the wound bed with 3L Ancef irrigation, 3L gentamycin irrigation and 3L nSS. Surgicel was then placed over the graft and dura and Tisseal used to help seal this in a layered fashion. Once this was accomplished another valsalva done and there was no leak. Meticulous hemostasis was done. The wound edges were then freshened and the capsular formation subQ was removed. Layered closure was then performed. Vancomycin was placed deep in the wound. Because of the leak no drain was placed. Hemostasis was achieved. Deep fascia was closed with #1 PDS. Deep subQ tissue closed with 0 PDS. Superficial subQ closed with 2-0 Vicryl and Skin was closed with 2-0 interrupted nylons. Wound edges approximated well. The wound was then cleaned and dressed sterilly with Optifoam dressing and Ioband. The pt was then transferred back to her hospital bed atraumatically. She was awakened and extubated by the department of anesthesia. She was then transferred to the PACU by anesthesia having tolerated the procedure well with no complications.
== END 2022-12-29 15:00 | disposition home health service (06) ==
LOC: OR 14:57 → 4SSUR 18:09 → OR 12-27 08:59
PROVIDERS: ADMIT Orthopaedic Surgery; ATTEND Orthopaedic Surgery
DX: G96.02 Spinal cerebrospinal fluid leak, spontaneous (principal); T81.31XA Disruption of external operation (surgical) wound, not elsewhere classified, initial encounter; R53.1 Weakness; I95.89 Other hypotension; I48.0 Paroxysmal atrial fibrillation; R51.9 Headache, unspecified; J44.9 Chronic obstructive pulmonary disease, unspecified; I10 Essential (primary) hypertension; E78.5 Hyperlipidemia, unspecified; N18.2 Chronic kidney disease, stage 2 (mild); Q60.0 Renal agenesis, unilateral; G62.9 Polyneuropathy, unspecified; Z98.890 Other specified postprocedural states; M79.7 Fibromyalgia; G40.909 Epilepsy, unspecified, not intractable, without status epilepticus; K31.84 Gastroparesis; Z79.82 Long term (current) use of aspirin
CPT/HCPCS: 94760 ×3; 97116; 97161; 80048 ×2; 85025; 85027; 85610; 72020; 63709; 63710; 63042; G0378 ×3; C1762 ×2; J2250; J3370; J0330; J1200 ×2; J1580; J1100; J2710; J0690 ×3; J2405; J3010; J1170 ×3; J2704; J2001

== ENCOUNTER → 2022-12-26 | Outpatient (CLI) | payer OTHER ==
--- NOTE | 2022-12-26 16:21 | CT ---
EXAMINATION TYPE: CT lumbar spine wo con DATE OF EXAM: 12/26/2022 COMPARISON: None HISTORY: 52-year-old female T81.89XA, postoperative seroma, Lumbar surgery in October, complaining of pain and swelling around surgical site. TECHNIQUE: Contiguous axial scanning of the lumbar spine without IV contrast. Coronal and sagittal re constructions performed. Prone scanning was performed due to patient's posterior swelling. CT DLP: 1425.5 mGycm Automated exposure control for dose reduction was used. FINDINGS: Moderate arthroscopic calcifications infrarenal abdominal aorta. There is an inferior splenule. Left renal fossa appears clear. Cholecystectomy clips. Mild to moderate stool burden. Normal appendix. There are postoperative changes of right L4 laminotomy. There is fluid extending from the spinal genia l posteriorly across the laminotomy defect, across the right paramedian paraspinal musculature adjace nt to the L4 spinous process (measuring 1.3 cm wide by 2.3 cm craniocaudal by 2.9 cm AP) to a larger subcutaneous fluid collection located in the midline subcutaneous adipose layer. This measures up to 13.7 cm craniocaudal by 9.2 cm wide by 7.3 cm AP. There is heterogeneous density along the right ventrolateral and right lateral aspect of the spinal c anal here at L4-L5. Unclear if this represents disc material, granulation tissue, or other distortion of the epidural space. Possible secondary mild narrowing of the spinal canal at this level. There is mild disc bulging at multiple levels. For example, L2-L3 mildly narrowing the spinal canal. Residual disc bulge at L4-L5 and facet arthropathy appears to contribute to moderate to severe right neuroforaminal stenosis, sagittal image 85. Mild left neuroforaminal stenosis. Vertebral body heights are preserved and alignment is maintained. IMPRESSION: 1. RIGHT-SIDED L4 LAMINOTOMY DEFECT. THERE IS HETEROGENEOUS DENSITY ALONG THE RIGHT VENTROLATERAL AND RIGHT LATERAL ASPECT OF THE SPINAL CANAL UNDERLYING THE LAMINOTOMY DEFECT. UNCLEAR IF THIS REPRESENT S RESIDUAL DISC MATERIAL, GRANULATION TISSUE, OR OTHER DISTORTION OF THE EPIDURAL SPACE. THIS MAY CON TRIBUTE TO MILD NARROWING OF THE THECAL SAC AT THIS LEVEL. 2. FLUID EXTENDS FROM THE SPINAL CANAL ACROSS THE LAMINOTOMY DEFECT, ACROSS THE RIGHT PARAMEDIAN PARA SPINAL MUSCULATURE, AND INTO A LARGE POSTERIOR MIDLINE SUBCUTANEOUS FLUID COLLECTION MEASURING 13.7 X 9.2 X 7.3 CM. EITHER A LARGE POSTOPERATIVE SEROMA OR PSEUDOMENINGOCELE. 3. RESIDUAL DISC BULGE AT L4-L5 MAY CONTRIBUTE TO A MODERATE TO SEVERE RIGHT AND MILD LEFT NEUROFORAM INAL STENOSIS.
== END | disposition home or self-care (01) ==
LOC: RADCTMAIN 14:14
PROVIDERS: ATTEND Orthopaedic Surgery
DX: T81.89XA Other complications of procedures, not elsewhere classified, initial encounter (principal); M48.061 Spinal stenosis, lumbar region without neurogenic claudication; M99.73 Connective tissue and disc stenosis of intervertebral foramina of lumbar region
CPT/HCPCS: 72131

== ENCOUNTER → 2023-06-05 | Outpatient (CLI) | payer OTHER ==
[2023-06-05 10:42] VITALS: BP 155/91; PULSE 93; RESP 15; TEMP 97.9
--- NOTE | 2023-06-05 14:18 | P.PAINPG ---
PQRS Measure Charge Sheet Comment: HISTORY OF PRESENT ILLNESS: 52 yr old female presents today w severe and chronic neck pain secondary to DDD, spondylosis and facet arthropathy without myelopathy for evaluation. Pt states pain level is at 8 /10 in intensity, constant, localized in the mid cervical spine, pressure in character w shooting pain towards the BL shoulders. Pain is provoked by hyperextension, rotation. Pain is alleviated by heat, medications (Neurontin), ice, a physician guided exercise & stretching regimen 3-4 times weekly since PT in 2020, repositioning and rest. PT x 6 wks in 2020 has been ineffective. Oswestry axial pain score of 32. Interventional procedures include DENIES Medications include Neurontin REVIEW OF ORGAN SYSTEMS: CONSTITUTIONAL: No fevers or chills. No recent weight loss. NEUROLOGICAL: + numbness and tingling along the distal extremities. No seizure disorders or headaches. MUSCULOSKELETAL: + pain PSYCHIATRIC: Denies current depression or suicidal thoughts. Physical Examinations : Constitutional : Cooperative , not in acute distress . Neurologic : Cranial nerve II to XII intact. No focal neurological deficits. Psychiatric : alert & oriented x 3. Matching mood & appropriate affect. Judgment & insight intact. Musculoskeletal : Cervical Spine Motor strength in the deltoid and biceps: Normal right side. Normal Left side Motor strength biceps and the wrist extensors: Normal right side . Normal left side Motor strength in the triceps muscle: Normal right side. Normal left side Deep tendon reflexes: Normal at the biceps. Normal at Brachioradialis. Normal at triceps Vertebral body tenderness to deep palpation over C6 Cervical facet loading test: positive bilaterally Spurling test: positive bilaterally Neck distraction test: positive bilaterally Natividad sign: positive bilaterally Lumbar spine Motor strength lower extremities ,thigh and legs 5/5 Right side , 5/5 Left side Deep tendon reflexes : Normal Knee Jerk. Normal Ankle Jerk Vertebral body tenderness over Lumbar facet Loading Test: positive Right / positive Left Range of motion of the lumbar spine Flexion 30 degrees, extension 10 degrees Straight Leg Raise test: Left/ Right positive at degree Shawanda test: positive right / positive left. Severe tenderness over the Sacroiliac joint on the Right / Left sides Gaenslen test: positive bilaterally Seated flexion test: positive bilaterally. Sacral spine : Severe tenderness over the Sacroiliac joint: right side / left side Range of motion: Flexion of the lumbar spine <60 degrees Range of motion: Extension of the lumbar spine <20 degrees Gaenslen's Test positive Mohsen's Test positive Shawanda test: positive right side / left side Thigh Thrust Test Sacral Thrust Test Imaging: MRI without contrast of the cervical spine from 03/29/22 reviewed Assessment/ Plan : Cervical DDD, cervical disc bulges Recommendation of AGUSTIN C6-C7 #1. May need a series of injections for optimal pain relief. Risks, benefits of procedure discussed and patient verbalized understanding. Admits to aspirin or anti- coagulant use or medical history of diabetes. Protocol for discontinuation/ continuation of medications saloni procedure discussed. All questions answered. I have spent greater than 30 minutes on patient care today. Dr Mccoy was available by phone for the evaluation of this patient. The time was used to review the medical records including relevant urine studies and Prescription history (MAPs), review of the available imaging, evaluation and examination of the patient, coordination of care with the medical staff and if applicable referring physicians, as well as creation of the medical record PQRS Narrative: Hx Alcohol Use (MH) No Home Medications: Ambulatory Orders Albuterol Inhaler [Ventolin Hfa Inhaler] 1 - 2 puff INHALATION Q6H PRN 10/11/22 Aspirin 81 mg PO DAILY 10/11/22 Atorvastatin [Lipitor] 10 mg PO HS 10/11/22 Citalopram Hydrobromide [CeleXA] 20 mg PO DAILY 10/11/22 Famotidine [Pepcid] 20 mg PO BID 10/11/22 Gabapentin 600 mg PO TID 10/11/22 Metoprolol Tartrate [Lopressor] 25 mg PO BID 10/11/22 Midodrine [ProAmatine] 5 mg PO TID 10/11/22 Oxybutynin Xl [Ditropan XL] 5 mg PO BID 10/11/22 Vit No.180/Iron/Folic [ Plus Tablet] 1 each PO DAILY 10/11/22 Rizatriptan Benzoate [Maxalt] 10 mg PO DIRECTED PRN 10/11/22 Sucralfate [Carafate] 1 gm PO TID 10/11/22 busPIRone HCL [Buspar] 15 mg PO BID 10/11/22 Cyclobenzaprine [Flexeril] 10 mg PO TID PRN #40 tab 10/13/22 Sennosides/Docusate Sodium [Senna Plus 8.6-50 mg Softgel] 1 each PO DAILY #20 capsule 12/29/22 cefaDROXiL [Duricef] 500 mg PO Q12HR 5 Days #10 cap 12/29/22 oxyCODONE HCL/ACETAMINOPHEN [Oxycodone-Acetaminophen 5-325] 1 each PO Q6H #28 tab 12/29/22 Controlled Substance Measures - Controlled Substance Measures Is patient prescribed a controlled substance at discharge?: No
== END ==
LOC: PNWHC3 10:18
PROVIDERS: ATTEND Specialist
DX: M50.322 Other cervical disc degeneration at C5-C6 level (principal); M47.22 Other spondylosis with radiculopathy, cervical region; Z91.030 Bee allergy status; Z91.040 Latex allergy status; Z88.5 Allergy status to narcotic agent; Z88.2 Allergy status to sulfonamides; Z88.8 Allergy status to other drugs, medicaments and biological substances
CPT/HCPCS: 99211

== ENCOUNTER 2023-06-27 18:36 | Emergency (ER) | payer OTHER ==
[2023-06-27 19:05] VITALS: RESP 18
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
[2023-06-27] MEDS ORDERED: CAFFEINE-SODIUM BENZOATE 500 MG in SODIUM CHLORIDE 0.9% 1,000 ML IVPB ONE (20:09)
[2023-06-27 21:56] VITALS: BP 132/74; PULSE 75; TEMP 98.2
== END 2023-06-27 21:55 | disposition home or self-care (01) ==
LOC: EC 18:36
DX: T88.59XA Other complications of anesthesia, initial encounter (principal); G44.40 Drug-induced headache, not elsewhere classified, not intractable; I48.91 Unspecified atrial fibrillation; J44.9 Chronic obstructive pulmonary disease, unspecified; E78.5 Hyperlipidemia, unspecified; G47.30 Sleep apnea, unspecified; I12.9 Hypertensive chronic kidney disease with stage 1 through stage 4 chronic kidney disease, or unspecified chronic kidney disease; N18.30 Chronic kidney disease, stage 3 unspecified; F41.9 Anxiety disorder, unspecified; F32.A Depression, unspecified; Z87.891 Personal history of nicotine dependence; Z79.1 Long term (current) use of non-steroidal anti-inflammatories (NSAID); Z79.899 Other long term (current) drug therapy; Z79.51 Long term (current) use of inhaled steroids; Z79.82 Long term (current) use of aspirin; Z91.030 Bee allergy status; Z88.5 Allergy status to narcotic agent; Z91.040 Latex allergy status; Z88.2 Allergy status to sulfonamides; Z88.1 Allergy status to other antibiotic agents; Z88.8 Allergy status to other drugs, medicaments and biological substances
CPT/HCPCS: 99283

== ENCOUNTER → 2023-06-27 | Day surgery (SDC) | payer OTHER ==
[~2023-06-27] MED LIST changes: +DEXAMETHASONE SOD PHOSPHATE 10 MG/ML 1 ML VIAL ONE; -DEXAMETHASONE SOD PHOSPHATE 4 MG/ML 1 ML VIAL IV ONE; +IOPAMIDOL M200 10 ML VIAL ONE; +LACTATED RINGERS 1,000 ML IV SCH; -LIDOCAINE 1% (10MG/ML) FOR IV START INTRADERMA PRN; -METOCLOPRAMIDE 5 MG/ML 2 ML VIAL IVP PRN; -ONDANSETRON 4 MG/2 ML VIAL IVP ONE; -Pre Op ABX Message 1 EACH MISC MISCELLANE ONE
[2023-06-27 10:53] VITALS: TEMP 96.7
--- NOTE | 2023-06-27 11:42 | P.PCN ---
Date of Procedure: 06/27/23 Procedure(s) Performed: . PROCEDURE 1. Cervical epidural steroid injection under fluoroscopic guidance, C6-7 (fluoroscopy images available in the radiology department ) 2. Cervical epidurogram. PREOPERATIVE DIAGNOSIS: 1- Cervical Degenerative Disc Diseases 2- Cervical radiculopathy. POSTOPERATIVE DIAGNOSIS: : 1- Cervical Degenerative Disc Diseases , 2- Cervical radiculopathy. ANESTHESIA: Local anesthesia with lidocaine 1% 3 ml only EBL 0 PROCEDURE INDICATION: The patient with neck pain and radiculitis unresponsive to conservative treatment consents for procedure. PROCEDURE DESCRIPTION / TECHNIQUE: The patient was seen and identified in the preoperative area. Risks, benefits, complications, including but not limited to infections ,bleeding , allergic reactions to the medications ,and not complete pain releife, and alternatives were discussed with the patient, the patient agr eed to proceed with the procedure and signed the consent. Patient was taken to the OR and time out was completed. The patient was placed in the prone position on the procedure table. A pillow was placed under the patients chest to increase the cervical interlaminar space. The cervical area was prepped and draped in the usual sterile fashion. Vital signs were closely monitored during the procedure. Using anterior-posterior fluoroscopy, the C6-7 interlaminar space was identified and the skin over this site was marked and then infiltrated with 1% lidocaine subcutaneously. Subsequently, a 20-gauge 3-1/2-inch Tuohy epidural needle was inserted and advanced toward the epidural space by means of the ``hanging-drop technique and guided by AP and lateral fluoroscopy. The correct needle position in the epidural space was verified with the injection of 2 mL of the water soluble contrast dye Isovue-200 and observing an excellent epidurogram with the epidural spread of the dye, after negative aspiration for blood and CSF and in the absence of paresthesias. then, mixture containing 20 mg Dexamethasone and 2 ml of preservative-free normal saline injected and a washout of epidurogram w as seen. Needle was withdrawn intact, skin was cleansed, and bandages were applied. Complications= none. Disposition= patient was placed in supine position and transferred to the recovery room area in stable condition and there was no evidence of upper or lower extremity motor or sensory deficit after the procedure patient was discharged from recovery room after discharge criteria met and home discharge instructions was given by the staff and patient will follow with the pain clinic in 2-4 weeks
[2023-06-27 11:48] VITALS: RESP 14
--- NOTE | 2023-06-27 12:31 | FL ---
Fluoroscopy INDICATION: Pain FINDINGS: Fluoroscopy time: 5 seconds. Total dose area product (DAP) in uGy*m?, mGy*cm? (or similar): 0.89645 Images obtained: 1. IMPRESSION: 1. Documentation of fluoroscopy.
[2023-06-27 12:33] VITALS: BP 186/103; PULSE 61
== END ==
LOC: ORPAIN 10:06
PROVIDERS: ATTEND Specialist
DX: M50.123 Cervical disc disorder at C6-C7 level with radiculopathy (principal); Z91.040 Latex allergy status; Z88.5 Allergy status to narcotic agent; Z88.2 Allergy status to sulfonamides; Z90.710 Acquired absence of both cervix and uterus; Z79.82 Long term (current) use of aspirin; Z79.899 Other long term (current) drug therapy
CPT/HCPCS: 62321; J1100; Q9966

== ENCOUNTER → 2023-07-20 | Outpatient (CLI) | payer OTHER ==
[2023-07-20 12:15] VITALS: BP 153/99; PULSE 89; RESP 15; TEMP 98.7
--- NOTE | 2023-07-20 14:41 | P.PAINPG ---
PQRS Measure Charge Sheet Comment: HISTORY OF PRESENT ILLNESS: 52 yr old female presents today w severe and chronic neck pain x 1 yr secondary to DDD, spondylosis and facet arthropathy without myelopathy for evaluation s/p AGUSTIN C6-C7 #1. Pt states she experienced 0% pain relief x 3 wks s/p procedure. Pt states pain level is at 8 /10 in intensity, constant, localized in the mid cervical spine, pressure in character w shooting pain towards the BL shoulders. Pain is provoked by hyperextension, rotation. Pain is alleviated by heat, medications, ice, a physician guided exercise & stretching regimen 3-4 times weekly since PT in 2020, repositioning and rest. PT x 6 wks in 2020 has been ineffective. Oswestry axial pain score of 30. Interventional procedures include AGUSTIN C6-C7 x1 Medications include Neurontin REVIEW OF ORGAN SYSTEMS: CONSTITUTIONAL: No fevers or chills. No recent weight loss. NEUROLOGICAL: + numbness and tingling along the distal extremities. No seizure disorders or headaches. MUSCULOSKELETAL: + pain PSYCHIATRIC: Denies current depression or suicidal thoughts. Physical Examinations : Constitutional : Cooperative , not in acute distress . Neurologic : Cranial nerve II to XII intact. No focal neurological deficits. Psychiatric : alert & oriented x 3. Matching mood & appropriate affect. Judgment & insight intact. Musculoskeletal : Cervical Spine Motor strength in the deltoid and biceps: Normal right side. Normal Left side Motor strength biceps and the wrist extensors: Normal right side . Normal left side Motor strength in the triceps muscle: Normal right side. Normal left side Deep tendon reflexes: Normal at the biceps. Normal at Brachioradialis. Normal at triceps Vertebral body tenderness to deep palpation Cervical facet loading test: positive bilaterally over BL C4-C5, C5-C6 Spurling test: positive bilaterally Neck distraction test: positive bilaterally Natividad sign: positive bilaterally Lumbar spine Motor strength lower extremities ,thigh and legs 5/5 Right side , 5/5 Left side Deep tendon reflexes : Normal Knee Jerk. Normal Ankle Jerk Vertebral body tenderness over Lumbar facet Loading Test: positive Right / positive Left Range of motion of the lumbar spine Flexion 30 degrees, extension 10 degrees Straight Leg Raise test: Left/ Right positive at degree [place] test: positive right / positive left. Severe tenderness over the Sacroiliac joint on the Right / Left sides Gaenslen test: positive bilaterally Seated flexion test: positive bilaterally. Sacral spine : Severe tenderness over the Sacroiliac joint: right side / left side Range of motion: Flexion of the lumbar spine <60 degrees Range of motion: Extension of the lumbar spine <20 degrees Gaenslen's Test positive Mohsen's Test positive [place] test: positive right side / left side Thigh Thrust Test Sacral Thrust Test Imaging: MRI without contrast of the cervical spine from 03/29/22 reviewed Assessment/ Plan : Cervical DDD, cervical disc bulges Recommendation of BL MBB C4-C5, C5-C6 #1. May need a series of injections, up until RFA, for optimal pain relief. Risks, benefits of procedure discussed and patient verbalized understanding. Admits to aspirin or anti- coagulant use or medical history of diabetes. Protocol for discontinuation/ continuation of medications saloni procedure discussed. All questions answered. I have spent greater than 30 minutes on patient care today. Dr Mccoy was available by phone for the evaluation of this patient. The time was used to review the medical records including relevant urine studies and Prescription history (MAPs), review of the available imaging, evaluation and examination of the patient, coordination of care with the medical staff and if applicable referring physicians, as well as creation of the medical record PQRS Narrative: Hx Alcohol Use (MH) No Home Medications: Ambulatory Orders Albuterol Inhaler [Ventolin Hfa Inhaler] 1 - 2 puff INHALATION Q6H PRN 10/11/22 Aspirin 81 mg PO QAM 10/11/22 Atorvastatin [Lipitor] 10 mg PO HS 10/11/22 Citalopram Hydrobromide [CeleXA] 20 mg PO QAM 10/11/22 Gabapentin 600 mg PO TID 10/11/22 Metoprolol Tartrate [Lopressor] 25 mg PO BID 10/11/22 Midodrine [ProAmatine] 5 mg PO TID 10/11/22 Oxybutynin Xl [Ditropan XL] 5 mg PO BID 10/11/22 Vit No.180/Iron/Folic [ Plus Tablet] 1 each PO QAM 10/11/22 Sucralfate [Carafate] 1 gm PO TID 10/11/22 busPIRone HCL [Buspar] 15 mg PO BID 10/11/22 Ammonium Lactate Cream [Lac-Hydrin 12% Cream] 1 applic TOPICAL QAM 06/23/23 Budesonide/Formoterol Fumarate [Symbicort 160-4.5 Mcg Inhaler] 2 puff INHALATION BID 06/23/23 Diclofenac Sodium Gel [Voltaren 1% Gel] 1 dose TOPICAL BID 06/23/23 Hydrocortisone Cream [Hydrocortisone 2.5% Cream] 1 applic TOPICAL BID 06/23/23 Controlled Substance Measures - Controlled Substance Measures Is patient prescribed a controlled substance at discharge?: No
== END ==
LOC: PNWHC3 11:10
PROVIDERS: ATTEND Specialist
DX: M50.321 Other cervical disc degeneration at C4-C5 level (principal); M50.322 Other cervical disc degeneration at C5-C6 level; G89.29 Other chronic pain; Z79.82 Long term (current) use of aspirin; Z91.048 Other nonmedicinal substance allergy status; Z88.5 Allergy status to narcotic agent; Z88.2 Allergy status to sulfonamides; Z88.1 Allergy status to other antibiotic agents; Z91.09 Other allergy status, other than to drugs and biological substances
CPT/HCPCS: 99211

== ENCOUNTER 2023-08-15 09:02 | Day surgery (SDC) | payer OTHER ==
[2023-08-11 10:16] VITALS: BMI 36.8
[~2023-08-15 09:02] MED LIST changes: -DEXAMETHASONE SOD PHOSPHATE 10 MG/ML 1 ML VIAL ONE; -IOPAMIDOL M200 10 ML VIAL ONE
[2023-08-15] MEDS ORDERED: ROPIVACAINE 5MG/ML 20ML VIAL ONE (09:45)
[2023-08-15] MEDS ORDERED: MIDAZOLAM 2 MG/2 ML VIAL ONE (09:45)
[2023-08-15 09:51] VITALS: TEMP 97.4
--- NOTE | 2023-08-15 09:52 | P.PCN ---
Date of Procedure: 08/15/23 Description of Procedure: Procedure: Cervical Medial Branch Block at bilateral C4/5, 5/6 Indications: Neck Pain Diagnosis: Cervical spondylosis without myelopathy Imaging: Fluoroscopy was used, images where saved to the medical record Anesthesia: Moderate sedation given by the nurse. Sedation supervision time [id number] Description of procedure: The patient was seen and examined in the PO. Procedure risks and benefits were fully reviewed with patient. The patient understands this is a diagnostic as well as a therapeutic procedure and that the goal of the procedure is to inject medication on to the medial branch or small nerves that go into the facet joints. In this way, we can hopefully identify which of these joints, if any, may be contributing to their pain. Informed consent for the procedure was obtained. The patient was taken into the office fluoroscopy procedure room and placed supine on the table. Vital signs were closely monitored during the procedure. The skin over the area was prepped with chlorhexidine and draped in usual sterile manner. Sterile technique was observed throughout procedure. Under fluoroscopic guidance, the target injection areas of the the above noted level's medial branches were visualized in lateral views. Using biplanar fluoroscopy, a 25 gauge 3.5 inch needle was inserted into proper position where the tip of the needle was located at the midpoint of the quadrangle at each level. After negative aspiration for blood and CSF, 0.5cc of 0.5 % Ropivacaine was injected into each of the targeted areas. The needles were withdrawn intact. No complications were noted during the procedure. The patient tolerated procedure well. The patient was placed in supine position and transferred to the recovery area for observation and remained stable until discharged home. Home discharge instructions given to the patient by the staff. The patient was reexamined prior to discharge. Follow up/plan: The patient will schedule a follow up in the clinic to discuss results and potential RFA.
[2023-08-15] MEDS ORDERED: IV FLUID CONTINUATION 1,000 ML IV ONE ×4 (09:57)
--- NOTE | 2023-08-15 10:42 | FL ---
Intraoperative/procedural fluoroscopic services were provided for bilateral cervical facet block. Tot al fluoroscopy time is 17.5 seconds with a total of 4 submitted images to PACS. Total DAP 0.01296 mGy m2. Please see the operative note for further details.
[2023-08-15 11:08] VITALS: BP 158/79; PULSE 68; RESP 20
== END 2023-08-15 10:47 | disposition home or self-care (01) ==
LOC: ORPAIN 09:02
PROVIDERS: ATTEND Specialist
DX: M47.812 Spondylosis without myelopathy or radiculopathy, cervical region (principal); Z79.82 Long term (current) use of aspirin
CPT/HCPCS: 64490; 64491 ×2; J2250; J2795

== ENCOUNTER → 2023-08-30 | Outpatient (CLI) | payer OTHER ==
[2023-08-30 11:46] VITALS: BP 163/92; PULSE 60; RESP 16; TEMP 98.3
--- NOTE | 2023-08-30 15:04 | P.PAINPG ---
Objective - Vital Signs Vital signs: Intake & Output 08/29/23 08/30/23 08/30/23 18:59 06:59 18:59 Weight 99.79 kg PQRS Measure Charge Sheet Comment: HISTORY OF PRESENT ILLNESS: 52 yr old female presents today w severe and chronic neck pain x 1 yr secondary to DDD, spondylosis and facet arthropathy without myelopathy for evaluation s/p BL MBB C4-C5, C5-C6 #1. Pt states she experienced 100% pain relief x 4 days s/p procedure. Pt states pain level is at 7 /10 in intensity, constant, localized in the mid cervical spine, predominantly axial, pressure in character w occasional shooting pain towards the BL shoulders. Pain is provoked by hyperextension, rotation. Pain is alleviated by heat, medications, ice, a physician guided exercise & stretching regimen 3-4 times weekly since PT in 2020, repositioning and rest. PT x 6 wks in 2020 has been ineffective. Oswestry axial pain score of 39. Interventional procedures include AGUSTIN C6-C7 x1 Medications include Neurontin REVIEW OF ORGAN SYSTEMS: CONSTITUTIONAL: No fevers or chills. No recent weight loss. NEUROLOGICAL: + numbness and tingling along the distal extremities. No seizure disorders or headaches. MUSCULOSKELETAL: + pain PSYCHIATRIC: Denies current depression or suicidal thoughts. Physical Examinations : Constitutional : Cooperative , not in acute distress . Neurologic : Cranial nerve II to XII intact. No focal neurological deficits. Psychiatric : alert & oriented x 3. Matching mood & appropriate affect. Judgment & insight intact. Musculoskeletal : Cervical Spine Motor strength in the deltoid and biceps: Normal right side. Normal Left side Motor strength biceps and the wrist extensors: Normal right side . Normal left side Motor strength in the triceps muscle: Normal right side. Normal left side Deep tendon reflexes: Normal at the biceps. Normal at Brachioradialis. Normal at triceps Vertebral body tenderness to deep palpation Cervical facet loading test: positive bilaterally over BL C4-C5, C5-C6 Spurling test: positive bilaterally Neck distraction test: positive bilaterally Natividad sign: positive bilaterally Lumbar spine Motor strength lower extremities ,thigh and legs 5/5 Right side , 5/5 Left side Deep tendon reflexes : Normal Knee Jerk. Normal Ankle Jerk Vertebral body tenderness over Lumbar facet Loading Test: positive Right / positive Left Range of motion of the lumbar spine Flexion 30 degrees, extension 10 degrees Straight Leg Raise test: Left/ Right positive at degree [place] test: positive right / positive left. Severe tenderness over the Sacroiliac joint on the Right / Left sides Gaenslen test: positive bilaterally Seated flexion test: positive bilaterally. Sacral spine : Severe tenderness over the Sacroiliac joint: right side / left side Range of motion: Flexion of the lumbar spine <60 degrees Range of motion: Extension of the lumbar spine <20 degrees Gaenslen's Test positive Mohsen's Test positive [place] test: positive right side / left side Thigh Thrust Test Sacral Thrust Test Imaging: MRI without contrast of the cervical spine from 03/29/22 reviewed Assessment/ Plan : Cervical DDD, cervical disc bulges Recommendation of BL MBB C4-C5, C5-C6 #2. May need a series of injections, up until RFA, for optimal pain relief. Risks, benefits of procedure discussed and patient verbalized understanding. Admits to aspirin or anti- coagulant use or medical history of diabetes. Protocol for discontinuation/ continuation of medications saloni procedure discussed. All questions answered. I have spent greater than 30 minutes on patient care today. Dr Mccoy was available by phone for the evaluation of this patient. The time was used to review the medical records including relevant urine studies and Prescription history (MAPs), review of the available imaging, evaluation and examination of the patient, coordination of care with the medical staff and if applicable referring physicians, as well as creation of the medical record PQRS Narrative: Hx Alcohol Use (MH) No Home Medications: Ambulatory Orders Albuterol Inhaler [Ventolin Hfa Inhaler] 1 - 2 puff INHALATION Q6H PRN 10/11/22 Aspirin 81 mg PO QAM 10/11/22 Atorvastatin [Lipitor] 10 mg PO HS 10/11/22 Citalopram Hydrobromide [CeleXA] 20 mg PO QAM 10/11/22 Gabapentin 600 mg PO TID 10/11/22 Metoprolol Tartrate [Lopressor] 25 mg PO BID 10/11/22 Midodrine [ProAmatine] 5 mg PO TID 10/11/22 Oxybutynin Xl [Ditropan XL] 5 mg PO BID 10/11/22 Vit No.180/Iron/Folic [ Plus Tablet] 1 each PO QAM 10/11/22 Sucralfate [Carafate] 1 gm PO TID 10/11/22 busPIRone HCL [Buspar] 15 mg PO BID 10/11/22 Ammonium Lactate Cream [Lac-Hydrin 12% Cream] 1 applic TOPICAL QAM 06/23/23 Budesonide/Formoterol Fumarate [Symbicort 160-4.5 Mcg Inhaler] 2 puff INHALATION BID 06/23/23 Diclofenac Sodium Gel [Voltaren 1% Gel] 1 dose TOPICAL BID 06/23/23 Hydrocortisone Cream [Hydrocortisone 2.5% Cream] 1 applic TOPICAL BID 06/23/23 Controlled Substance Measures - Controlled Substance Measures Is patient prescribed a controlled substance at discharge?: No
== END ==
LOC: PNWHC3 11:09
PROVIDERS: ATTEND Specialist
DX: M50.20 Other cervical disc displacement, unspecified cervical region (principal); Z88.5 Allergy status to narcotic agent; Z88.2 Allergy status to sulfonamides; Z91.040 Latex allergy status; Z91.030 Bee allergy status; Z88.1 Allergy status to other antibiotic agents; Z88.3 Allergy status to other anti-infective agents; Z79.899 Other long term (current) drug therapy; Z79.82 Long term (current) use of aspirin
CPT/HCPCS: 99211; 99212

== ENCOUNTER → 2023-09-26 | Outpatient (CLI) | payer OTHER ==
--- NOTE | 2023-09-27 17:03 | MM ---
Reason for Exam: Screening (asymptomatic). Patient History: Menarche at age 11. First Full-Term at age 22. Hysterectomy at age 31. Risk Values: Amanda 5 year model risk: 1.1%. NCI Lifetime model risk: 8.4%. Prior Study Comparison: No prior studies available for comparison. Tissue Density: The breast tissue is almost entirely fat. Findings: Analyzed By CAD. Tiny benign intramammary lymph node laterally on the right. No significant mass, suspicious microcalcification, or other discrete abnormality is seen. There is no suspicious group of microcalcifications or new suspicious mass in either breast. Overall Assessment: Benign, BI-RAD 2 Management: Screening Mammogram of both breasts in 1 year. . Patient should continue monthly self-breast exams. A clinical breast exam by your physician is recommended on an annual basis. This exam should not preclude additional follow-up of suspicious palpable abnormalities. Note on Amanda scores and lifetime risk: 1. A Amanda score greater than 3% is considered moderate risk. If this is the case, consider specialist referral to assess eligibility for a risk reducing agent. 2. If overall lifetime risk for the development of breast cancer is 20% or higher, the patient may qualify for future screening with alternating mammogram and breast MRI. Electronically signed and approved by: Maribel Mendoza M.D. Radiologist
== END | disposition home or self-care (01) ==
LOC: RADMAMWWP 09:48
PROVIDERS: ATTEND Family Medicine
DX: Z12.31 Encounter for screening mammogram for malignant neoplasm of breast (principal)
CPT/HCPCS: 77067

== ENCOUNTER 2023-10-03 09:05 | Day surgery (SDC) | payer OTHER ==
[2023-10-03] MEDS ORDERED: LACTATED RINGERS 1,000 ML IV SCH (09:23)
[2023-10-03] MEDS ORDERED: LIDOCAINE 1% (10MG/ML) FOR IV START INTRADERMA ONE (09:39)
[2023-10-03 09:53] VITALS: PULSE 55; RESP 16; TEMP 97.3
[2023-10-03] MEDS ORDERED: ROPIVACAINE 5MG/ML 20ML VIAL ONE (10:14)
[2023-10-03] MEDS ORDERED: MIDAZOLAM 2 MG/2 ML VIAL ONE (10:14)
[2023-10-03] MEDS ORDERED: fentaNYL (PF) 50 MCG/ML 2 ML AMP ONE (10:14)
[2023-10-03] MEDS ORDERED: IV FLUID CONTINUATION 1,000 ML IV ONE (10:42)
[2023-10-03 11:05] VITALS: BP 145/76
--- NOTE | 2023-10-03 11:06 | P.PCN ---
Description of Procedure: Preprocedure diagnosis. Cervical facet joint arthropathy, cervical spine spondylosis, cervical degenerative disc disease. Postprocedure diagnosis. As above. Procedure done. BILATERAL C4-5, C5-6 facet joint (C4, C5, C6 medial branch of dorsal ramus) diagnostic injection with local anesthetics under fluoroscopic guidance. Anesthesia. IV sedation of Versed 2 milligram, fentanyl 50 micrograms give in OR. Continuous pulse ox, EKG, blood pressure and verbal communication was maintained with the patient in OR. Blood loss. None. Indication. Patient has got the diagnoses of cervical spondylolysis, facet joint arthropathy with neck pain. Discussed with the patient procedure, alternatives, complications including infection, bleeding, nerve damage, paralysis all of which could be permanent. Patient understands and all questions are answered. Procedure note. After getting consent patient in OR in prone position. Back of the neck was prepped with chlorhexidine and draped in sterile fashion. For RIGHT side,fter injecting 3 mL of plain 1% lidocaine subcutaneously, a 22-gauge spinal needle was introduced under tunnel vision of the fluoroscope AP view at the waist of the articular pillar (lateral mass) at C4 vertebral level. In the lateral view of the fluoroscope it was confirmed that the tip of the needle s tayed within the dorsal half of the articular pillar (lateral mass). So, C4-5 facet joint was targeted by blocking C4 and C5 medial branch, C5-6 facet joint was targeted by blocking C5 and C6 medial branch. In exactly the same way , after subcutaneous injection of lidocaine, 22-gauge spinal needles were introduced under tunnel vision of the fluoroscope AP view at the waist of the articular pillars (lateral mass) at C5 and C6 vertebral level. In the lateral view of the fluoroscope it was confirmed that the tip of the needle stayed within the dorsal half of the articular pillar (lateral mass). At each needle, 0.5 mL of 0.5% ropivacaine preservative-free was injected. In exactly same way LEFT C4-5, C5-6 facet joints were targeted by blocking left C4, C5, C6 medial branch of dorsal ramus using 0.5 mL of 0.5% ropivacaine at each point. After the procedure needle was taken out and bandage was applied. Disposition. Patient tolerated the procedure well. No complication. Discharged home in stable condition.
--- NOTE | 2023-10-03 11:14 | FL ---
EXAMINATION TYPE: FL guided pain mgmt statistic DATE OF EXAM: 10/03/2023 FLUOROSCOPY Fluoroscopy time of 68.1 seconds was used during cervical facet blocks. 2 image/s document/s the pro cedure. DAP 0.04029 mGycm2
== END 2023-10-03 11:13 | disposition home or self-care (01) ==
LOC: ORPAIN 09:05
PROVIDERS: ATTEND Pain Medicine Interventional Pain Medicine
DX: M50.322 Other cervical disc degeneration at C5-C6 level (principal); M47.812 Spondylosis without myelopathy or radiculopathy, cervical region
CPT/HCPCS: 64490; 64491 ×2; J2250; J3010; J2795

== ENCOUNTER 2023-10-09 19:44 | Emergency (ER) | payer OTHER ==
[2023-10-09] MEDS ORDERED: ACETAMINOPHEN TAB 500 MG TAB PO STA (19:58)
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
[2023-10-09 20:01] VITALS: RESP 18
--- NOTE | 2023-10-09 20:51 | XR ---
EXAMINATION TYPE: XR chest 2V DATE OF EXAM: 10/09/2023 8:36 PM CLINICAL INDICATION:Female, 53 years old with history of fever; COMPARISON: None TECHNIQUE: XR chest 2V Frontal and lateral views of the chest. FINDINGS: Lungs/Pleura: There is no evidence of pleural effusion, focal consolidation, or pneumothorax. Pulmonary vascularity: Unremarkable. Heart/mediastinum: Cardiomediastinal silhouette is unremarkable. Musculoskeletal: No acute osseous pathology. IMPRESSION: No acute cardiopulmonary disease/process.
[2023-10-09 21:38] VITALS: BP 155/68; PULSE 81; TEMP 102.3
== END 2023-10-09 21:39 | disposition home or self-care (01) ==
LOC: EC 19:44
DX: U07.1 COVID-19 (principal); I48.91 Unspecified atrial fibrillation; J44.9 Chronic obstructive pulmonary disease, unspecified; I10 Essential (primary) hypertension; K21.9 Gastro-esophageal reflux disease without esophagitis; M19.90 Unspecified osteoarthritis, unspecified site; G47.30 Sleep apnea, unspecified; F41.9 Anxiety disorder, unspecified; F32.A Depression, unspecified; Z87.891 Personal history of nicotine dependence; Z79.899 Other long term (current) drug therapy; Z91.030 Bee allergy status; Z91.040 Latex allergy status; Z88.5 Allergy status to narcotic agent; Z88.2 Allergy status to sulfonamides; Z88.8 Allergy status to other drugs, medicaments and biological substances
CPT/HCPCS: 71046; 87636; 99284

== ENCOUNTER → 2023-11-08 | Outpatient (CLI) | payer OTHER ==
[2023-11-08 11:27] VITALS: BP 158/95; PULSE 54; RESP 16; TEMP 96.9
--- NOTE | 2023-11-08 14:42 | P.PAINPG ---
PQRS Measure Charge Sheet Comment: HISTORY OF PRESENT ILLNESS: 52 yr old female presents today w severe and chronic neck pain x 1 yr secondary to DDD, spondylosis and facet arthropathy without myelopathy for evaluation s/p BL MBB C4-C5, C5-C6 #2. Pt states she experienced 100 % pain relief x 4 hrs s/p procedure. Pt states pain level is at 7 /10 in intensity, constant, localized in the mid cervical spine, predominantly axial, pressure in character w occasional shooting pain towards the BUEs. Pain is provoked by hyperextension, rotation. Pain is alleviated by heat, medications, ice, a physician guided exercise & stretching regimen 3-4 times weekly since PT in 2020, repositioning and rest. PT x 6 wks in 2020 has been ineffective. Oswestry axial pain score of 38. Interventional procedures include AGUSTIN C6-C7 x1, BL MBB C4-C6 x2 Medications include Neurontin REVIEW OF ORGAN SYSTEMS: CONSTITUTIONAL: No fevers or chills. No recent weight loss. NEUROLOGICAL: + numbness and tingling along the distal extremities. No seizure disorders or headaches. MUSCULOSKELETAL: + pain PSYCHIATRIC: Denies current depression or suicidal thoughts. Physical Examinations : Constitutional : Cooperative , not in acute distress . Neurologic : Cranial nerve II to XII intact. No focal neurological deficits. Psychiatric : alert & oriented x 3. Matching mood & appropriate affect. Judgment & insight intact. Musculoskeletal : Cervical Spine Motor strength in the deltoid and biceps: Normal right side. Normal Left side Motor strength biceps and the wrist extensors: Normal right side . Normal left side Motor strength in the triceps muscle: Normal right side. Normal left side Deep tendon reflexes: Normal at the biceps. Normal at Brachioradialis. Normal at triceps Vertebral body tenderness to deep palpation Cervical facet loading test: positive bilaterally over BL C4-C5, C5-C6 Spurling test: positive bilaterally Neck distraction test: positive bilaterally Natividad sign: positive bilaterally Lumbar spine Motor strength lower extremities ,thigh and legs 5/5 Right side , 5/5 Left side Deep tendon reflexes : Normal Knee Jerk. Normal Ankle Jerk Vertebral body tenderness over Lumbar facet Loading Test: positive Right / positive Left Range of motion of the lumbar spine Flexion 30 degrees, extension 10 degrees Straight Leg Raise test: Left/ Right positive at degree Shaw[place] test: positive right / positive left. Severe tenderness over the Sacroiliac joint on the Right / Left sides Gaenslen test: positive bilaterally Seated flexion test: positive bilaterally. Sacral spine : Severe tenderness over the Sacroiliac joint: right side / left side Range of motion: Flexion of the lumbar spine <60 degrees Range of motion: Extension of the lumbar spine <20 degrees Gaenslen's Test positive Mohsen's Test positive Shawanda test: positive right side / left side Thigh Thrust Test Sacral Thrust Test Imaging: MRI without contrast of the cervical spine from 03/29/22 reviewed Assessment/ Plan : Cervical DDD, cervical disc bulges Recommendation of BL RFA C4-C5, C5-C6. Exhibited optimal pain relief w previous BL MBB procedures. Risks, benefits of procedure discussed and patient verbalized understanding. Admits to aspirin or anti- coagulant use or medical history of diabetes. Protocol for discontinuation/ continuation of medications saloni procedure discussed. All questions answered. I have spent greater than 30 minutes on patient care today. Dr Mccoy was available by phone for the evaluation of this patient. The time was used to review the medical records including relevant urine studies and Prescription history (MAPs), review of the available imaging, evaluation and examination of the patient, coordination of care with the medical staff and if applicable r eferring physicians, as well as creation of the medical record PQRS Narrative: Hx Alcohol Use (MH) No Home Medications: Ambulatory Orders Albuterol Inhaler [Ventolin Hfa Inhaler] 1 - 2 puff INHALATION Q6H PRN 10/11/22 Aspirin 81 mg PO QAM 10/11/22 Atorvastatin [Lipitor] 10 mg PO HS 10/11/22 Citalopram Hydrobromide [CeleXA] 20 mg PO QAM 10/11/22 Gabapentin 600 mg PO TID 10/11/22 Metoprolol Tartrate [Lopressor] 25 mg PO BID 10/11/22 Midodrine [ProAmatine] 5 mg PO TID 10/11/22 Oxybutynin Xl [Ditropan XL] 5 mg PO BID 10/11/22 Vit No.180/Iron/Folic [ Plus Tablet] 1 each PO QAM 10/11/22 Sucralfate [Carafate] 1 gm PO TID 10/11/22 busPIRone HCL [Buspar] 15 mg PO BID 10/11/22 Ammonium Lactate Cream [Lac-Hydrin 12% Cream] 1 applic TOPICAL QAM 06/23/23 Budesonide/Formoterol Fumarate [Symbicort 160-4.5 Mcg Inhaler] 2 puff INHALATION BID 06/23/23 Diclofenac Sodium Gel [Voltaren 1% Gel] 1 dose TOPICAL BID 06/23/23 Hydrocortisone Cream [Hydrocortisone 2.5% Cream] 1 applic TOPICAL BID 06/23/23 Famotidine [Pepcid] 20 mg PO HS 09/27/23 Nirmatrelvir/Ritonavir [Paxlovid 150-100 mg Pack (Eua)] 1 each PO BID 5 Days #10 each 10/09/23 Controlled Substance Measures - Controlled Substance Measures Is patient prescribed a controlled substance at discharge?: No
== END ==
LOC: PNWHC3 10:44
PROVIDERS: ATTEND Anesthesiology
DX: M47.812 Spondylosis without myelopathy or radiculopathy, cervical region (principal); M46.1 Sacroiliitis, not elsewhere classified; L76.34 Postprocedural seroma of skin and subcutaneous tissue following other procedure; Z91.030 Bee allergy status; Z88.5 Allergy status to narcotic agent; Z91.040 Latex allergy status; Z88.2 Allergy status to sulfonamides; Z91.048 Other nonmedicinal substance allergy status; Z88.1 Allergy status to other antibiotic agents; Z79.82 Long term (current) use of aspirin
CPT/HCPCS: 99211

== ENCOUNTER 2023-11-09 12:07 | Emergency (ER) | payer OTHER ==
[2023-11-09] MEDS ORDERED: MECLIZINE 25 MG TAB PO STA (12:36)
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
--- NOTE | 2023-11-09 13:26 | CT ---
EXAMINATION TYPE: CT brain wo con DATE OF EXAM: 11/09/2023 COMPARISON: To 823 INDICATION: dizzy DLP: 1036.3 mGycm, Automated exposure control for dose reduction was used. CONTRAST: None CT of the brain is performed utilizing 3 mm thick sections through the posterior fossa and 3 mm thick sections through the remaining calvarium. Study is performed within 24 hours of arrival to the hosp [facility]. No abnormal hyperdensity is present to suggest an acute intracranial hemorrhage. No mass lesion is evident. No acute infarcts are evident. Ventricles and sulci are appropriate for the patient age. Because thickening is through the right maxillary sinus. Remaining paranasal sinuses and mastoid air cells are clear. IMPRESSION: 1. No acute intracranial process. Follow-up MRI can be performed as clinically indicated.
--- NOTE | 2023-11-09 13:33 | XR ---
EXAMINATION TYPE: XR chest 2V DATE OF EXAM: 11/09/2023 1:21 PM CLINICAL INDICATION:Female, 53 years old with history of Chest Pain; COMPARISON: Chest radiographs from 10/09/2023 TECHNIQUE: XR chest 2V Frontal and lateral views of the chest. FINDINGS: Lungs/Pleura: There is no evidence of pleural effusion, focal consolidation, or pneumothorax. Pulmonary vascularity: Unremarkable. Heart/mediastinum: Cardiomediastinal silhouette is unremarkable. Musculoskeletal: No acute osseous pathology. IMPRESSION: No acute cardiopulmonary disease/process.
[2023-11-09 14:58] LABS: Basophils % (A) 0 %; Eosinophils # (A) 0.3 k/uL (0-0.7); Eosinophils % (A) 3 %; HCT 41.8 % (34.0-46.0); HGB 13.7 gm/dL (11.4-16.0); Lymphocytes # (A) 1.6 k/uL (1.0-4.8); Lymphocytes % (A) 20 %; MCH 30.9 pg (25.0-35.0); MCHC 32.8 g/dL (31.0-37.0); MCV 94.4 fL (80.0-100.0); Mean Platelet Volume 7.1; Monocytes # (A) 0.4 k/uL (0-1.0); Monocytes % (A) 5 %; Neutrophils # (A) 5.5 k/uL (1.3-7.7); Neutrophils % (A) 70 %; Platelet Count 193 k/uL (150-450); RBC 4.42 m/uL (3.80-5.40); RDW 13.8 % (11.5-15.5); WBC 7.9 k/uL (3.8-10.6)
[2023-11-09 15:07] LABS: INR 0.8 (<1.2); Partial Thromboplastin Time 23.2 sec (22.0-30.0); Prothrombin Time 9.5 sec (10.0-12.5)
[2023-11-09 15:32] LABS: ALT 43 U/L (4-34); African American GFR (CKD) 77 (>60 ml/min/1.73 sqM); Albumin 3.5 g/dL (3.5-5.0); Anion Gap 2 mmol/L; Blood Urea Nitrogen 18 mg/dL (7-17); Calcium 9.1 mg/dL (8.4-10.2); Carbon Dioxide 30 mmol/L (22-30); Chloride 108 mmol/L (98-107); Glucose 109 mg/dL (74-99); Non-African American GFR(CKD) 67 (>60 ml/min/1.73 sqM); Sodium 140 mmol/L (137-145); Total Bilirubin 0.7 mg/dL (0.2-1.3); Total Protein 6.4 g/dL (6.3-8.2)
[2023-11-09 15:35] LABS: Potassium 4.3 mmol/L (3.5-5.1)
[2023-11-09 15:36] LABS: AST 33 U/L (14-36); Alkaline Phosphatase 95 U/L (38-126); Magnesium 2.2 mg/dL (1.6-2.3)
[2023-11-09 16:21] VITALS: RESP 16
[2023-11-09 17:22] VITALS: BP 167/87; PULSE 65; TEMP 97.9
== END 2023-11-09 17:02 | disposition home or self-care (01) ==
LOC: EC 12:07
DX: R42 Dizziness and giddiness (principal); E78.5 Hyperlipidemia, unspecified; G47.30 Sleep apnea, unspecified; I12.9 Hypertensive chronic kidney disease with stage 1 through stage 4 chronic kidney disease, or unspecified chronic kidney disease; I48.91 Unspecified atrial fibrillation; J44.9 Chronic obstructive pulmonary disease, unspecified; K21.9 Gastro-esophageal reflux disease without esophagitis; M19.90 Unspecified osteoarthritis, unspecified site; F41.9 Anxiety disorder, unspecified; F32.A Depression, unspecified; N18.30 Chronic kidney disease, stage 3 unspecified; Z79.1 Long term (current) use of non-steroidal anti-inflammatories (NSAID); Z79.51 Long term (current) use of inhaled steroids; Z79.82 Long term (current) use of aspirin; Z79.899 Other long term (current) drug therapy; Z87.891 Personal history of nicotine dependence; Z88.1 Allergy status to other antibiotic agents; Z88.2 Allergy status to sulfonamides; Z88.5 Allergy status to narcotic agent; Z91.030 Bee allergy status; Z91.040 Latex allergy status; Z90.49 Acquired absence of other specified parts of digestive tract
CPT/HCPCS: 36415; 70450; 71046; 80053; 83735; 84484; 85025; 85610; 85730; 93005; 99285

== ENCOUNTER 2023-12-08 13:01 | Emergency (ER) | payer OTHER ==
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
[2023-12-08 14:07] VITALS: TEMP 98.4
[2023-12-08 15:44] LABS: HCT 43.1 % (34.0-46.0); HGB 14.1 gm/dL (11.4-16.0); MCH 31.8 pg (25.0-35.0); MCHC 32.7 g/dL (31.0-37.0); MCV 97.3 fL (80.0-100.0); Mean Platelet Volume 7.4; Platelet Count 229 k/uL (150-450); RBC 4.43 m/uL (3.80-5.40); RDW 14.5 % (11.5-15.5); WBC 7.2 k/uL (3.8-10.6)
[2023-12-08 15:53] LABS: ALT 23 U/L (4-34); AST 33 U/L (14-36); African American GFR (CKD) 82 (>60 ml/min/1.73 sqM); Albumin 4.1 g/dL (3.5-5.0); Alkaline Phosphatase 108 U/L (38-126); Anion Gap 6 mmol/L; Blood Urea Nitrogen 14 mg/dL (7-17); Calcium 9.4 mg/dL (8.4-10.2); Carbon Dioxide 30 mmol/L (22-30); Chloride 104 mmol/L (98-107); Glucose 119 mg/dL (74-99); Non-African American GFR(CKD) 71 (>60 ml/min/1.73 sqM); Potassium 3.9 mmol/L (3.5-5.1); Sodium 140 mmol/L (137-145); Total Bilirubin 0.8 mg/dL (0.2-1.3); Total Protein 6.8 g/dL (6.3-8.2)
[2023-12-08 16:01] LABS: NT-Pro-B-Type Natriuretic Pept 825 pg/mL
--- NOTE | 2023-12-08 17:41 | XR ---
EXAMINATION TYPE: XR chest 2V DATE OF EXAM: 12/08/2023 5:37 PM CLINICAL INDICATION:Female, 53 years old with history of swelling; [facility] COMPARISON: Chest radiographs from 11/09/2023. TECHNIQUE: XR chest 2V Frontal and lateral views of the chest. FINDINGS: Lungs/Pleura: There is no evidence of pleural effusion, focal consolidation, or pneumothorax. Pulmonary vascularity: Unremarkable. Heart/mediastinum: Cardiomediastinal silhouette is unremarkable. Musculoskeletal: No acute osseous pathology. IMPRESSION: No acute cardiopulmonary disease/process.
--- NOTE | 2023-12-08 18:57 | US ---
EXAMINATION TYPE: US venous doppler duplex LE BI DATE OF EXAM: 12/08/2023 6:25 PM COMPARISON: NONE CLINICAL INDICATION: Female, 53 years old with history of swelling; Bilateral feet swelling SIDE PERFORMED: Bilateral TECHNIQUE: The lower extremity deep venous system is examined utilizing real time linear array sonog katie with graded compression, doppler sonography and color-flow sonography. VESSELS IMAGED: Common Femoral Vein Deep Femoral Vein Greater Saphenous Vein * Femoral Vein Popliteal Vein Small Saphenous Vein * Proximal Calf Veins (* superficial vessels) Right Leg: Negative for DVT Left Leg: Negative for DVT IMPRESSION: Grayscale, color doppler, spectral doppler imaging performed of the deep veins of the lo wer extremities. There is normal flow, compressibility, vascular waveforms.
[2023-12-08] MEDS: FUROSEMIDE 10 MG/ML 4 ML VIAL IV STA (19:47)
[2023-12-08 20:12] VITALS: BP 190/107; PULSE 69; RESP 16
== END 2023-12-08 19:58 | disposition home or self-care (01) ==
LOC: EC 13:01
DX: R60.0 Localized edema (principal); I48.91 Unspecified atrial fibrillation; J44.9 Chronic obstructive pulmonary disease, unspecified; E78.5 Hyperlipidemia, unspecified; I10 Essential (primary) hypertension; M19.90 Unspecified osteoarthritis, unspecified site; G47.30 Sleep apnea, unspecified; F41.9 Anxiety disorder, unspecified; F32.A Depression, unspecified; Z87.891 Personal history of nicotine dependence; Z79.1 Long term (current) use of non-steroidal anti-inflammatories (NSAID); Z79.899 Other long term (current) drug therapy; Z79.82 Long term (current) use of aspirin; Z79.51 Long term (current) use of inhaled steroids; Z91.030 Bee allergy status; Z88.5 Allergy status to narcotic agent; Z91.040 Latex allergy status; Z88.2 Allergy status to sulfonamides; Z88.1 Allergy status to other antibiotic agents; Z88.6 Allergy status to analgesic agent; Z88.8 Allergy status to other drugs, medicaments and biological substances
CPT/HCPCS: 36415; 93005; 83880; 80053; 85027; 71046; 93970; 99284; 96374; J1940

== ENCOUNTER 2023-12-18 16:45 | Emergency (ER) | payer OTHER ==
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
[2023-12-18] MEDS: KETOROLAC 15 MG/ML 1 ML VIAL IM STA (17:51)
--- NOTE | 2023-12-18 18:09 | XR ---
EXAMINATION TYPE: XR ankle complete RT DATE OF EXAM: 12/18/2023 5:28 PM CLINICAL INDICATION:Female, 53 years old with history of pain s/p fall; [facility] COMPARISON: None TECHNIQUE: XR ankle complete RT; ankle is imaged in frontal, lateral and oblique projections. FINDINGS: There is no evidence of acute osseous pathology. The joint spaces are well-preserved without evidenc e of subluxation or dislocation. Kager's fat pad is intact. Mild soft tissue swelling around the ankl e. No radiopaque foreign bodies are identified. IMPRESSION: 1. No evidence of acute fracture. 2. Subcutaneous swelling around the ankle likely secondary to underlying soft tissue injury.
--- NOTE | 2023-12-18 18:28 | XR ---
EXAMINATION TYPE: XR foot complete RT DATE OF EXAM: 12/18/2023 6:16 PM CLINICAL INDICATION:Female, 53 years old with history of pain; H COMPARISON: Same day radiographs TECHNIQUE: XR foot complete RT examined in the AP, oblique, and lateral projections. FINDINGS: No evidence of any acute osseous pathology. No evidence of soft tissue swelling. Joints are preserve d. Mild soft tissue swelling over the dorsal foot. IMPRESSION: 1. No evidence of acute fracture. 2. Soft tissue swelling on the dorsal foot without evidence of fracture.
[2023-12-18 18:57] VITALS: BP 146/83; PULSE 62; RESP 20; TEMP 97.8
== END 2023-12-18 18:47 | disposition home or self-care (01) ==
LOC: EC 16:45
DX: S93.401A Sprain of unspecified ligament of right ankle, initial encounter (principal); I48.91 Unspecified atrial fibrillation; J44.9 Chronic obstructive pulmonary disease, unspecified; E78.5 Hyperlipidemia, unspecified; K21.9 Gastro-esophageal reflux disease without esophagitis; F41.9 Anxiety disorder, unspecified; F32.A Depression, unspecified; Z79.82 Long term (current) use of aspirin; Z79.899 Other long term (current) drug therapy; Z87.891 Personal history of nicotine dependence; Z91.030 Bee allergy status; Z91.040 Latex allergy status; Z88.5 Allergy status to narcotic agent; Z88.2 Allergy status to sulfonamides; Z88.8 Allergy status to other drugs, medicaments and biological substances; W01.0XXA Fall on same level from slipping, tripping and stumbling without subsequent striking against object, initial encounter
CPT/HCPCS: 73610; 73630; 99283; 96372; J1885

== ENCOUNTER 2024-02-24 17:48 | Emergency (ER) | payer OTHER ==
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
[2024-02-24 18:23] VITALS: RESP 18
--- NOTE | 2024-02-24 18:47 | XR ---
EXAMINATION TYPE: XR thoracic spine complete DATE OF EXAM: 02/24/2024 6:38 PM CLINICAL INDICATION:Female, 53 years old with history of fall onto back; H COMPARISON: None TECHNIQUE: XR thoracic spine complete views of the spine in Frontal and lateral projections. FINDINGS: No evidence of acute fracture. There is scattered multilevel disk space narrowing without loss of ve rtebral body height. There is normal alignment of the thoracic vertebral bodies. Scattered osteophyte formation along the anterior and lateral aspects of the vertebral bodies. Neural foramen are patent given limitations of this exam. Spinal canal appears patent. And left atrial appendage occlusion device present. IMPRESSION: 1. No acute osseous pathology. 2. [id number] multilevel degeneration changes of the spine.
--- NOTE | 2024-02-24 18:49 | XR ---
EXAMINATION TYPE: XR foot complete RT DATE OF EXAM: 02/24/2024 6:38 PM CLINICAL INDICATION:Female, 53 years old with history of right foot injury; COMPARISON: None TECHNIQUE: XR foot complete RT examined in the AP, oblique, and lateral projections. FINDINGS: No evidence of any acute osseous pathology. No evidence of soft tissue swelling. Joints are preserve d. IMPRESSION: No evidence of acute fracture.
[2024-02-24 19:54] VITALS: BP 140/72; PULSE 78; TEMP 98.2
== END 2024-02-24 19:36 | disposition home or self-care (01) ==
LOC: EC 17:48
DX: S29.012A Strain of muscle and tendon of back wall of thorax, initial encounter (principal); F17.200 Nicotine dependence, unspecified, uncomplicated; Z88.1 Allergy status to other antibiotic agents; Z88.2 Allergy status to sulfonamides; Z88.3 Allergy status to other anti-infective agents; Z88.5 Allergy status to narcotic agent; Z91.030 Bee allergy status; Z91.040 Latex allergy status; W19.XXXA Unspecified fall, initial encounter; Y92.002 Bathroom of unspecified non-institutional (private) residence as the place of occurrence of the external cause
CPT/HCPCS: 72072; 99283

== ENCOUNTER 2024-02-29 11:17 | Day surgery (SDC) | payer OTHER ==
[2024-02-27 12:33] VITALS: BMI 37.8
[2024-02-29] MEDS: LACTATED RINGERS 1,000 ML IV SCH (11:36)
[2024-02-29] MEDS ORDERED: ROPIVACAINE 5MG/ML 20ML VIAL ONE (12:04)
[2024-02-29] MEDS ORDERED: MIDAZOLAM 2 MG/2 ML VIAL ONE (12:04)
[2024-02-29] MEDS ORDERED: methylPREDNISolone ACETATE 40 MG/ML 1 ML VIAL ONE (12:04)
[2024-02-29] MEDS ORDERED: fentaNYL (PF) 50 MCG/ML 2 ML AMP ONE (12:04)
[2024-02-29 12:11] VITALS: TEMP 97.1
--- NOTE | 2024-02-29 12:26 | P.PCN ---
Date of Procedure: 02/29/24 Procedure(s) Performed: PREOPERATIVE DIAGNOSIS: Cervical spondylosis with Facet Arthropathy without myelopathy. POSTOPERATIVE DIAGNOSIS: Cervical spondylosis with Facet Arthropathy without myelopathy. PROCEDURES: Radiofrequency thermocoagulation, Left C4, C5, C6 medial branch with Fluroscopy [place](fluoroscopy was available in Radiology department ) (to denervate the facet joint at Left C4- 5 , C5- 6 ) ANESTHESIA: moderate sedation with fentanyl 100 micrograms and Versed 3 mg ( Sedation start time 1204, end time 1222 ) EBL: Minimal PROCEDURE INDICATION: The patient with neck pain secondary to cervical arthropathy who had more than 50% relief of her pain with previous diagnostic cervical medial branch block. PROCEDURE DESCRIPTION / TECHNIQUE: The patient was seen and identified in the preoperative area. Risks, benefits, complications, and alternatives were discussed with the patient, the patient agreed to proceed with the procedure and signed the consent. IV was started. Vital signs remained stable throughout the procedure. Patient was taken to the OR and time out was completed. The patient was placed in the lateral position on the procedure table( left side up ). The cervical area was prepped and draped in the usual sterile fashion. Critical pause was taken. Vital signs were closely monitored during the procedure. Conscious sedation was used during the procedure to decrease patients anxiety. Using cross-table lateral fluoroscopy, the centroid of the trapezoid of Left C4, C5, and C6 were identified, marked, and localized with 1% lidocaine. Subsequently, a 20 [id number] radiofrequency cannula with a 10-mm active tip was advanced guided by fluoroscopy to the centroid of the trapezoid of left C4, C5, and C6 . Needle tip position was confirmed at the centroid of the trapezoids of left C4, C5, and C6 with anteroposterior fluoroscopy. Each site then underwent sensory testing at 50 Hz and 0 to 1 volt and motor testing at 2 Hz and 0 to 3 volt with local stimulation, but no radicular symptoms down the arm. Thereafter each sites underwent radiofrequency thermocoagulation at 80 degrees celsius for 90 seconds after injecting 0.5 ml of PF Ropivacaine 0.5 %. After thermocoagulation, 1 ml of the block solution containing Depo-Medrol 40 mg and 3 mL of preservative-free normal saline was injected at the left C4, C5, and C6 levels after negative aspiration of CSF and blood and with no paresthesias. Cannulas were retracted while injecting lidocaine 1% until the needle is out. Skin was cleansed and bandages were applied. COMPLICATIONS: No acute complications. DISPOSITION / PLANS: The patient was placed in a supine position and transferred to the recovery area in a stable condition for observation and was discharged from the recovery room after meeting discharge criteria. Home discharge instructions given to the patient by the staff. The patient was reexamined prior to discharge. The patient will schedule a follow up in the clinic in 2-4 weeks.
[2024-02-29] MEDS: IV FLUID CONTINUATION 1,000 ML IV ONE (12:30)
[2024-02-29] MEDS ORDERED: ENALAPRILAT 1.25 MG/ML 1 ML VIAL ONE (12:45)
--- NOTE | 2024-02-29 12:45 | FL ---
EXAMINATION TYPE: FL guided pain mgmt statistic Intraoperative/procedural fluoroscopic services were provided. Total fluoroscopy time is 7.3 seconds with a total of 3 submitted images to PACS. Please se e the operative/procedural note for further details. DAP: [id number] mGym2
[2024-02-29] MEDS: ENALAPRILAT 1.25 MG/ML 1 ML VIAL IVP ONE (12:47)
[2024-02-29 13:09] VITALS: BP 138/71; PULSE 63; RESP 17
== END 2024-02-29 13:15 | disposition home or self-care (01) ==
LOC: ORPAIN 11:17
PROVIDERS: ATTEND Specialist
DX: M47.812 Spondylosis without myelopathy or radiculopathy, cervical region (principal); I48.91 Unspecified atrial fibrillation; J44.9 Chronic obstructive pulmonary disease, unspecified; Z79.82 Long term (current) use of aspirin; Z88.6 Allergy status to analgesic agent; Z88.5 Allergy status to narcotic agent; Z91.040 Latex allergy status; Z88.8 Allergy status to other drugs, medicaments and biological substances
CPT/HCPCS: 64633; 64634; 99152; J2250; J3010; J2795; J1010

== ENCOUNTER → 2024-04-22 | Outpatient (CLI) | payer OTHER ==
--- NOTE | 2024-04-22 14:13 | CT ---
EXAMINATION TYPE: CT pelvis wo con DATE OF EXAM: 04/22/2024 COMPARISON: None HISTORY: low back pain, sacroiliitis CT DLP: 593.4 mGycm Automated exposure control for dose reduction was used. FINDINGS: The sacroiliac joints appear symmetric. There is no evidence of abnormal narrowing or widening. No er osive changes seen. No ventral spurring. Sacrum is intact without evidence of mass or fracture. No pr esacral lesion seen. No pelvic masses seen. Hysterectomy changes noted. IMPRESSION: NO CT EVIDENCE TO SUGGEST SACROILIITIS. CORRELATE WITH MRI AND/OR BONE SCAN IF FELT CLINICALLY INDICA PATRICIA.
--- NOTE | 2024-04-22 19:59 | XR ---
EXAMINATION TYPE: XR Hip Complete RT DATE OF EXAM: 04/22/2024 COMPARISON: None HISTORY: Pain TECHNIQUE: 2 view right hip FINDINGS: Femoral head articulates with the acetabulum. No acute fracture or dislocation is evident. Joint spaces preserved. Follow up exams can be performed 7-10 days from acute trauma for continued pa in. IMPRESSION: 1. Normal 2 view right hip
--- NOTE | 2024-04-23 22:25 | MR ---
EXAMINATION TYPE: MR lumbar spine wo con DATE OF EXAM: 04/22/2024 COMPARISON: HISTORY: Low back pain that radiates down right leg. CONTRAST: 0 mL intravenous Gadavist. TECHNIQUE: Multiplanar, multisequence images of the lumbar spine were acquired. FINDINGS: Cord terminates at the L1-2 level. L5-S1: No significant disc bulge or disc herniation. Disc desiccation is present. No spinal canal st enosis. No foraminal stenosis. L4-L5: No significant disc bulge. In the sagittal plane there appears to be some extension of disc ma terial in the subligamentous region posterior to the L5 endplate. Endplate changes are present likely on the basis of Modic type I degenerative changes No spinal canal stenosis. No foraminal stenosis. L3-L4: No significant disc bulge. There is a small subligamentous central disc herniation with mild a nterior thecal sac contact. No spinal canal stenosis There may be some increased signal within the po sterior inferior disc space could be related to an annular tear. Mild disc desiccation without loss o f disc height is present at this level. L2-L3: No significant disc bulge or disc herniation. No spinal canal stenosis. No foraminal stenosi s. L1-L2: No significant disc bulge or disc herniation. No spinal canal stenosis. No foraminal stenosi s. T12-L1: No significant disc bulge or disc herniation. No spinal canal stenosis. No foraminal stenos is. IMPRESSION: 1. Small subligamentous disc herniation with mild anterior thecal sac compression L3-4. Annular tear may be present at this level. 2. Modic type I degenerative endplate changes L4-5 with the moderate disc desiccation. 3. Subligamentous disc extension L4-5 without significant thecal sac compression.
== END | disposition home or self-care (01) ==
LOC: RADCTMAIN 13:34
PROVIDERS: ATTEND Orthopaedic Surgery
DX: M54.50 Low back pain, unspecified (principal); M46.1 Sacroiliitis, not elsewhere classified
CPT/HCPCS: 72148; 72192; 73502

== ENCOUNTER 2024-06-09 05:19 | Emergency (ER) | payer OTHER ==
[2024-06-09 05:25] VITALS: TEMP 98
[2024-06-09] MEDS: SODIUM CHLORIDE 0.9% 1,000 ML IV STA (06:35)
[2024-06-09 06:41] LABS: Basophils % (A) 0 %; Eosinophils # (A) 0.3 k/uL (0-0.7); Eosinophils % (A) 4 %; HCT 40.3 % (34.0-46.0); HGB 13.4 gm/dL (11.4-16.0); Lymphocytes % (A) 26 %; MCH 31.5 pg (25.0-35.0); MCHC 33.2 g/dL (31.0-37.0); MCV 94.9 fL (80.0-100.0); Mean Platelet Volume 7.3; Monocytes # (A) 0.4 k/uL (0-1.0); Monocytes % (A) 5 %; Neutrophils # (A) 4.7 k/uL (1.3-7.7); Neutrophils % (A) 63 %; Platelet Count 260 k/uL (150-450); RBC 4.25 m/uL (3.80-5.40); RDW 13.5 % (11.5-15.5); WBC 7.5 k/uL (3.8-10.6)
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
[2024-06-09 06:50] LABS: ALT 22 U/L (4-34); AST 26 U/L (14-36); African American GFR (CKD) 72 (>60 ml/min/1.73 sqM); Albumin 3.7 g/dL (3.5-5.0); Alkaline Phosphatase 97 U/L (38-126); Anion Gap 2 mmol/L; Blood Urea Nitrogen 8 mg/dL (7-17); Calcium 9.2 mg/dL (8.4-10.2); Carbon Dioxide 31 mmol/L (22-30); Chloride 107 mmol/L (98-107); Glucose 95 mg/dL (74-99); Non-African American GFR(CKD) 62 (>60 ml/min/1.73 sqM); Potassium 3.6 mmol/L (3.5-5.1); Sodium 140 mmol/L (137-145); Total Bilirubin 0.6 mg/dL (0.2-1.3)
[2024-06-09 07:07] LABS: INR 0.9 (<1.2); Partial Thromboplastin Time 26.4 sec (22.0-30.0); Prothrombin Time 9.9 sec (10.0-12.5)
--- NOTE | 2024-06-09 07:27 | CT ---
EXAMINATION TYPE: CT brain wo con DATE OF EXAM: 06/09/2024 COMPARISON: None INDICATION: Syncope DLP: 1036.8 mGycm, Automated exposure control for dose reduction was used. CONTRAST: None CT of the brain is performed utilizing 3 mm thick sections through the posterior fossa and 3 mm thick sections through the remaining calvarium. Study is performed within 24 hours of arrival to the hosp ital. No abnormal hyperdensity is present to suggest an acute intracranial hemorrhage. No mass lesion is evident. No acute infarcts are evident. Ventricles and sulci are appropriate for the patient age. Paranasal sinuses and mastoid air cells within the [id number] are clear. IMPRESSION: 1. No acute intracranial process. Follow up MRI can be performed as clinically indicated.
--- NOTE | 2024-06-09 07:39 | XR ---
EXAMINATION TYPE: XR shoulder complete LT DATE OF EXAM: 06/09/2024 COMPARISON: NONE HISTORY: Pain TECHNIQUE: Shoulder examined in 3 projections. FINDINGS: The humeral head articulates with the glenoid. The acromio-clavicular junction is normal. No acute fractures or dislocations are evident. A follow up study can be performed 7-10 days from acute trauma for continued pain. MRI can be perfor med if soft tissue evaluation would be of benefit. IMPRESSION: 1. No acute osseous shoulder abnormality.
--- NOTE | 2024-06-09 07:39 | XR ---
EXAMINATION TYPE: XR chest 2V DATE OF EXAM: 06/09/2024 COMPARISON: 12/08/2023 INDICATION: Syncope TECHNIQUE: Frontal and lateral views of the chest are obtained. FINDINGS: The heart size is normal. The pulmonary vasculature is normal. The lungs are clear. IMPRESSION: 1. No acute pulmonary process.
[2024-06-09 08:05] VITALS: RESP 18
[2024-06-09] MEDS: ACETAMINOPHEN TAB 325 MG TAB PO STA (08:16)
[2024-06-09 08:47] LABS: Appearance,Urine Clear (Clear); Bilirubin,Urine Negative (Negative); Blood,Urine Trace (Negative); Color,Urine Colorless; Glucose,Urine (UA) Negative (Negative); Ketones,Urine Negative (Negative); Leukocyte Esterase,Urine Moderate (Negative); Mucus,Urine Rare /hpf; Nitrite,Urine Negative (Negative); PH, Urine 7.5 (5.0-8.0); Protein,Urine Negative (Negative); RBC,Urine 5 /hpf (0-5); Specific Gravity,Urine 1.006 (1.001-1.035); Squamous Epithelial Cell,Urine <1 /hpf (0-4); Urobilinogen,Urine <2.0 mg/dL (<2.0); WBC,Urine 7 /hpf (0-5)
[2024-06-09 09:30] VITALS: BP 183/92; PULSE 83
== END 2024-06-09 09:31 | disposition home or self-care (01) ==
LOC: EC 05:19
DX: R55 Syncope and collapse (principal); F17.200 Nicotine dependence, unspecified, uncomplicated; Z91.040 Latex allergy status; Z91.030 Bee allergy status; Z88.2 Allergy status to sulfonamides; Z88.5 Allergy status to narcotic agent; Z88.1 Allergy status to other antibiotic agents
CPT/HCPCS: 36415; 70450; 71046; 80053; 81001; 83735; 84484; 85025; 85610; 85730; 93005; 96360; 96361; 99285

== ENCOUNTER → 2024-06-19 | Outpatient (CLI) | payer OTHER | END | disposition home or self-care (01) | LOC: LABPAT 10:04 | PROVIDERS: ATTEND Orthopaedic Surgery | DX: Z01.818 Encounter for other preprocedural examination (principal); Z22.322 Carrier or suspected carrier of Methicillin resistant Staphylococcus aureus; M54.16 Radiculopathy, lumbar region | CPT/HCPCS: 86850; 86900; 86901; 87070 ==

== ENCOUNTER 2024-06-27 05:34 | Day surgery (SDC) | payer OTHER ==
[2024-06-20 15:04] VITALS: BMI 36.6
[~2024-06-27 05:34] MED LIST changes: +GABAPENTIN 300 MG CAP PO PRN; -LACTATED RINGERS 1,000 ML IV SCH; +ONDANSETRON 4 MG/2 ML VIAL IVP PRN; +TRANEXAMIC 1,000 MG/100ML-NACL 1,000 MG in SALINE 1 100ML.BAG IVPB PRN
[2024-06-27] MEDS ORDERED: fentaNYL (PF) 50 MCG/ML 2 ML AMP IVP PRN (05:53)
[2024-06-27] MEDS ORDERED: LIDOCAINE 1% (10MG/ML) FOR IV START INTRADERMA PRN (05:53)
[2024-06-27] MEDS: IV FLUID CONTINUATION 1,000 ML IV ONE ×5 (06:16→12:23)
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
[2024-06-27] MEDS: ACETAMINOPHEN TAB 500 MG TAB PO PRN (06:50)
[2024-06-27] MEDS: DEXAMETHASONE SOD PHOSPHATE 4 MG/ML 1 ML VIAL IV ONE (06:50)
[2024-06-27] MEDS: ONDANSETRON 4 MG/2 ML VIAL IVP ONE (06:50)
[2024-06-27] MEDS: LACTATED RINGERS 1,000 ML IV SCH (06:51)
[2024-06-27] MEDS: MIDAZOLAM 2 MG/2 ML VIAL IV PRN (06:52)
[2024-06-27] MEDS ORDERED: TRANEXAMIC 1,000 MG/100ML-NACL PREMIX BAG ONE (07:29)
[2024-06-27] MEDS ORDERED: fentaNYL (PF) 50 MCG/ML 2 ML AMP ONE (07:29)
[2024-06-27] MEDS ORDERED: LIDOCAINE 1% INJ 10MG/ML (20 ML MDV) ONE (07:29)
[2024-06-27] MEDS ORDERED: HYDROmorphone (PF) 1 MG/ML ONE (07:29)
[2024-06-27] MEDS ORDERED: ROCURONIUM 10 MG/ML (5 ML VIAL) IV ONE (07:29)
[2024-06-27] MEDS ORDERED: SUCCINYLCHOLINE CHLORIDE 200 MG/10 ML VIAL IV ONE (07:29)
[2024-06-27] MEDS ORDERED: PROPOFOL 10 MG/ML 20 ML VIAL IV ONE (07:29)
[2024-06-27] MEDS ORDERED: NEOSTIGMINE 1 MG/ML 10 ML VIAL ONE (07:29)
[2024-06-27] MEDS ORDERED: GLYCOPYRROLATE 0.2 MG/ML 2 ML VIAL ONE (07:29)
[2024-06-27] MEDS ORDERED: MIDAZOLAM 2 MG/2 ML VIAL ONE (07:29)
[2024-06-27] MEDS: VANCOMYCIN 1,500 MG in SODIUM CHLORIDE 0.9% 500 ML 500 ML IVPB PRN (07:34)
[2024-06-27] MEDS: GENTAMICIN 80 MG in SODIUM CHLORIDE 0.9% IRRIGATIO 3,000 ML IRRIGATION ONE (08:08)
[2024-06-27] MEDS: THROMBIN (BOVINE) 5,000 UNIT VIAL TOPICAL ONE (08:08)
[2024-06-27] MEDS: VANCOMYCIN 1,000 MG VIAL MISCELLANE ONE (10:20)
--- NOTE | 2024-06-27 11:00 | P.OP ---
Date of Procedure: 06/27/24 Preoperative Diagnosis: Current Active Problems Lumbar disc herniation with radiculopathy (Acute) Lumbar spondylosis (Acute) Lower extremity weakness (Acute) Low back pain (Acute) Postoperative Diagnosis: Current Active Problems Lumbar disc herniation with radiculopathy (Acute) Lumbar spondylosis (Acute) Lower extremity weakness (Acute) Low back pain (Acute) Procedure(s) Performed: L4-5 POSTEROLATERAL AND INTERBODY FUSION L4-5 INSTRUMENTATION L4-5 REVISION LAMINECTOMY, COMPLETE FACETECTOMY AND FORAMINOTOMY L4-5 INSERTION OF BIOMECHANICAL DEVICE USE OF NuConomy NAVIGATION FOR SCREW PLACEMENT USE OF IONM ALL SCREWS TESTING > 20mA Implants: -PEPE EVEREST RODS AND SCREWS -GLOBUS SABLE CAGE 12X30 7-14MM 15 DEG -MAGNATOS, ARTHROCELL, ALLOCELL, CONTOUR, AUTOGRAFT,DBM Anesthesia: GETA Surgeon: Emil Vences Journeyman Pressman #1: Levar Figueroa (was present and assisted with all aspects of the case from position to dressing placement. ) Estimated Blood Loss (ml): 300 IV fluids (ml): 1,500 Urine output (ml): 350 Pathology: none sent Condition: stable Disposition: PACU Indications for Procedure: FELICITY BRUNSON is a 53 yo female presenting for evaluation of continued low back pain, LE weakness and radiculopathy despite decompressive surgery, conservative measures, AGUSTIN and medications. It was my pleasure to have seen and examined FELICITY BRUNSON. In our visit today we have had a chance to go over subjective complaints, physical examination findings and treatments including the natural course history without intervention and various interventional options. The patients imaging demonstrates the following findings: * Foraminal stenosis at L3-5 with postoperative changes noted at L4-5 with hemilaminectomy on the right. There is recurrent HNP at L4-5 noted with foraminal and central canal stenosis related. No fractures or lesions. Grade I anterolisthesis noted at L4-5. On a physical exam, Bernice Morel demonstrates the following findings: * Low back pain with RLE radiculopathy, paresthesias in the L5 and S1 distributions as well as weakness in EHL and DF on the right ? with generalized weakness of the LE overall. I have explained to the patient that as their condition progresses it will cause further neurological deficits and eventual paralysis. Based on the patients imaging, physical exam, and the rapid progression and disabling nature of their symptoms, at this time I recommend surgery in the form of a: Revision L4-5 decompression and fusion I discussed the risk and benefits of this procedure at length with FELICITY BOSCH. The patient agreed to consider pursuing the procedure above mentioned. Prior to surgery, they should follow up with her PCP (Cardio, ID, IM etc) for clearance. Questions were invited and answered, and the patient wishes to proceed as outlined below. Currently, I am recommendin. REVISION L4-5 DECOMPRESSION AND FUSION Description of Procedure: L4-5 open PLIF (Norma) The patient was seen and examined in the preoperative area. All preoperative protocols were followed. Informed consent was obtained, risks and benefits of the procedure were discussed at length. Risks including bleeding infection damage to the surrounding tissue and risk of re-operation were discussed with the patient. Risk of anesthesia up to and including was discussed with the patient. These are outlined in the risk review. They were willing to accept these risks and all the risks of surgery. The patient was given a weight-based dose of antibiotics in the form of 2 g Ancef. The patient was seen and evaluated by the anesthesia team who deemed them fit for surgery. The site was marked, the patient was willing to proceed with the procedure. The patient was transferred to the operative suite by the Department of anesthesia. They were then drifted off to sleep by the department anesthesia and GETA was performed. The patient tolerated this well. Batres catheter was p laced by nursing staff, a-traumatically. Once confirmation of lines and ventilation the patient was transferred to a prone Armando table very carefully. All bony prominences including wrists, elbows, axilla, chest, hips, and thighs, and feet were padded very well. Special attention was paid to the genitalia, and these were padded accordingly. SCDs were placed on bilateral lower extremities and were connected. Arms were well padded and placed on arm boards up and out in the 90/90 position. Once in position, again we confirmed good ventilation capabilities and that lines were running appropriately. The patients Lumbar spine was then exposed. 1010s were placed outlining the incision site. Standard alcohol was used to clean the incision site and allowed to dry. C-arm was used to needle localize the pedicles at L4-S1 and bio-rodrigo the patient and confirm level for incision which was marked with a skin marker. Operative briefing was performed with all teams and everyone in agreement to proceed. The patient was then prepped and draped in a normal sterile fashion. Timeout was then performed, and all parties agreed with the procedure to be performed. Midline skin incision was made over the previously bio-marked area and dissection taken down over the SP of L3-L5. L4-5 was taken out over facet joints and TPs and a penfield 4 used to rodrigo the L4 pedicle. Lateral image used to c onfirm levels. Once confirmed, screws were proceeded to be placed b/l at pedicles from L4-L5 using [employer] Navigation. An SP clamp was used, 3D C arm spin obtained and confirmed to be accurate. Once this was confirmed screws were placed using a navigated zhanna, navigated awl-tap and navigated motor driver. Once screws were placed they were confirmed to be in good position using AP and Lateral fluoroscopy. The wound was then irrigated. Screws were tested and all tested above 20 mA. We then proceeded to decompression and cage placement. Attention was then turned to inter-body fusion at L4-5. Bilateral laminectomy, complete facetectomy and foraminotomy performed at L4-5 using high speed zhanna and Kerrison rongure. The ligamentum was removed and dural sac decompressed. Exiting and traversing roots visualized and decompressed. Neural elements were then protected, and disc space accessed with an osteotome. Sequential shaving then done under lateral imaging and complete discectomy performed using keith, pituitary and curette. Once good bleeding endplates accomplished and good height mandaeism with trials, a combination of autograft, allograft and synthetic placed anterior in the disc space. The cage was then selected and impacted into place under lateral imaging. The cage was then expanded restoring height, lordosis and alignment. The cage was backfilled with bone graft through a funnel. The contract clerk removed and area inspected. Good cage placement, stable cage and no injuries. Area was irrigated copiously, and meticulous hemostasis achieved. The tubular retractor was then removed under direct visualization. The wound and disc spaces irrigated and meticulous hemostasis achieved. Rods were then sized and selected and placed into L5 screws b/l. Set screws locked these in place and then sequentially reduced into L4 b/l for reduction. This was accomplished. Set screws were then all placed and final tightened. TPs were then decorticated with high speed zhanna. The wound was the irrigated with 3L ANCEF irrigation, 3L gentamicin irrigation and 3L NSS. Surgical was placed over the dura. Autograft and MagnatOs then placed in the posteriolateral gutters and impacted into place. Deep drain placed and secured to the skin. Final images confirmed good placement of hardware and good reduction of listhesis as well as mandaeism of height and lordosis. Facia was then closed with #1 PDS. Deep subq closed with 0 Vicryl. Superficial subq closed with 2-0 Vicryl and skin with romeo. Wound edges approximated very well. Wound was then cleaned with alcohol and dried. Wounds dressed with Optifoam dressings. The patient was then transferred off the table back to their hospital bed a- traumatically. They were extubated by the department of anesthesia. They were then transferred to PACU in stable condition having tolerated the procedure with no complications.
[2024-06-27] MEDS ORDERED: MAGNESIUM HYDROXIDE 2,400 MG/30 ML CUP PO PRN (11:12)
[2024-06-27] MEDS ORDERED: NA PHOS,M-B/NA PHOS,DI-BA 133 ML ENEMA RECTAL PRN (11:12)
[2024-06-27] MEDS ORDERED: HYDROmorphone 0.5 MG/0.5 ML SYRINGE IVP PRN (11:12)
[2024-06-27] MEDS ORDERED: ONDANSETRON 4 MG/2 ML VIAL IVP PRN (11:12)
[2024-06-27] MEDS ORDERED: bisacodyL 10 MG SUPP RECTAL PRN (11:12)
[2024-06-27] MEDS: HYDROmorphone 0.5 MG/0.5 ML SYRINGE IVP PRN (11:28)
[2024-06-27] MEDS: diphenhydrAMINE 50 MG/ML 1 ML VIAL IVP STA ×2 (11:58→22:46)
[2024-06-27] MEDS: KETOROLAC 15 MG/ML 1 ML VIAL IVP ONE (12:00)
[2024-06-27] MEDS ORDERED: MECLIZINE 25 MG TAB PO PRN (14:04)
[2024-06-27] MEDS ORDERED: ALBUTEROL NEBULIZED 2.5 MG/3 ML INHALATION PRN (14:04)
[2024-06-27] MEDS: ACETAMINOPHEN TAB 500 MG TAB PO SCH (14:26)
[2024-06-27] MEDS: 0.9% NACL WITH KCL 20 MEQ/L 1,000 ML IV SCH (14:26)
[2024-06-27] MEDS: KETOROLAC 15 MG/ML 1 ML VIAL IVP SCH (14:27)
[2024-06-27] MEDS: MIDODRINE 5 MG TAB PO SCH (16:26)
[2024-06-27] MEDS: SUCRALFATE 1 GM TAB PO SCH (16:53)
[2024-06-27] MEDS: GABAPENTIN 300 MG CAP PO SCH (16:53)
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
[2024-06-27] MEDS: HYDROmorphone 1 MG/ML 1 ML SYRINGE IVP PRN (20:52)
[2024-06-27] MEDS: SYMBICORT 160-4.5 MCG INHALER INHALATION SCH (21:19)
[2024-06-27] MEDS: METOPROLOL TARTRATE 50 MG TAB PO SCH (21:49)
[2024-06-27] MEDS: oxyBUTYnin chloride 5 MG TAB PO SCH (21:49)
[2024-06-27] MEDS: busPIRone HCl 5 MG TAB PO SCH (21:49)
[2024-06-27] MEDS: FAMOTIDINE 20 MG TAB PO SCH (21:49)
--- NOTE | 2024-06-28 07:44 | P.PN ---
Subjective Progress Note Date: 06/28/24 Principal diagnosis: 1. L3-S1 Spondylosis with stenosis 2. Foraminal stenosis 3. Bilateral lower extremity radiculopathy 4. Bilateral lower extremity weakness Patient seen and examined this morning. Patient was resting comfortably in bed, in transport present in room to escort patient to CT scan this morning. Patient does report that her pain is managed on current regimen. She does note improvement of the radiculopathy and weakness in her bilateral lower extremities since the procedure. Surgical incision to the lumbar spine, dressing is clean dry and intact with Hemovac present, 100 mL output overnight. LSO brace is present at bedside. Informed patient that physical therapy will be in to work with her today. Patient is looking forward to increasing her activity to progress with her recovery. No acute concerns at this time. Objective - Vital Signs Vital signs: Vital Signs Temp 98.3 F 06/28/24 06:56 Pulse 96 06/28/24 06:56 Resp 17 06/28/24 06:56 BP 128/74 06/28/24 06:56 Pulse Ox 99 06/28/24 06:56 FiO2 Intake & Output 06/27/24 06/28/24 06/28/24 18:59 06:59 18:59 Intake Total 1901 1000 Output Total 500 1150 Balance 1401 -150 Weight 96.2 kg Intake: IV 1901 Intake, IV Titration 1000 Amount 0.9% NaCl with KCl 20 Meq 1000 /l 1,000 ml @ 50 mls/hr IV .Q20H [facility] Rx#: [id number] Output: Drainage 100 Back 100 Urine 400 1050 Estimated Blood Loss 100 Other: Voiding Method Indwelling Catheter Assessment and Plan Assessment: Postop day 1: Revision L3-L4 decompression and fusion Plan: -Appreciate commercial solar sales consultant and team management. -Activity: Ambulate QID, OOB all meals, up and about, limit lifting bending twisting to less than 5 lbs. Use walker or cane if needed for stability. -Daily PT/OT, increase ambulation strength and balance. -Brace when up and about, not needed in bed or chair -Pain control: Adequate at this time -Meds: reviewed -GI ppx: senna, Miralax -DVT PPX: OK to restart Heparin tonight -Hygiene: Shower today. Maintain dressing clean and dry. Meticulous cleaning after BMs away from the incision site -Drains: Maintain for now. Continue to monitor and record output q shift. -Encourage IS 10x/hr -Dispo: Anticipate discharge home tomorrow with homecare *I reviewed and discussed this case with my attending Dr. Vences, whom has reviewed this chart and films and is in agreement with assessment and plan of care as outlined above. I have personally seen and examined the patient, performed the documentation and the assessment and plan as written. Number of minutes spent on the visit: 20m.
[2024-06-28] MEDS: PRENATAL VIT-IRON-FOLIC ACID 1 EACH TABLET PO SCH (08:15)
[2024-06-28] MEDS: CITALOPRAM HYDROBROMIDE 20 MG TAB PO SCH (08:16)
[2024-06-28] MEDS: FUROSEMIDE 40 MG TAB PO SCH (08:16)
[2024-06-28] MEDS: SENNOSIDES-DOCUSATE SODIUM 1 EACH TAB PO SCH (08:16)
[2024-06-28] MEDS: ATORVASTATIN 10 MG TAB PO SCH (08:16)
[2024-06-28] MEDS: polyethylene glycoL 3350 17 GM POWD.PACK PO SCH (08:16)
[2024-06-28 08:58] LABS: Basophils # (A) 0.01 X 10*3/uL (0.00-0.10); Basophils % (A) 0.1 %; Eosinophils # (A) 0 X 10*3/uL (0.04-0.35); Eosinophils % (A) 0 %; HCT 35.7 % (37.2-46.3); HGB 11.3 g/dL (12.0-15.0); Lymphocytes # (A) 1.21 X 10*3/uL (0.90-5.00); Lymphocytes % (A) 11.6 %; MCH 30.3 pg (27.0-32.0); MCHC 31.7 g/dL (32.0-37.0); MCV 95.7 FL (80.0-97.0); Mean Platelet Volume 9.5 FL (9.5-12.2); Monocytes # (A) 0.71 X 10*3/uL (0.20-1.00); Monocytes % (A) 6.8 %; NRBC Per 100 WBC 0 X 10*3/uL (0.00-0.01); Neutrophils # (A) 8.45 X 10*3/uL (1.80-7.70); Neutrophils % (A) 81.1 %; Platelet Count 257 X 10*3/uL (140-440); RBC 3.73 X 10*6/uL (4.10-5.20); RDW 13.2 % (11.5-14.5); WBC 10.42 X 10*3/uL (4.50-10.00)
[2024-06-28 09:24] LABS: BUN/Creat Ratio 10.33 Ratio (12.00-20.00); Blood Urea Nitrogen 12.4 mg/dL (9.0-27.0); Calcium 8.5 mg/dL (8.7-10.3); Carbon Dioxide 26.9 mmol/L (21.6-31.8); Chloride 104 mmol/L (96-109); Glucose 113 mg/dL (70-110); Potassium 4.8 mmol/L (3.5-5.5); Sodium 139 mmol/L (135-145)
--- NOTE | 2024-06-28 14:04 | P.PN ---
Subjective Progress Note Date: 06/28/24 Hospital course: Patient is a pleasant 53-year-old female with a past medical history of hypertension, hyperlipidemia, atrial fibrillation no longer on anticoagulation status post watchman's device, CKD stage IIIb, seizure disorder, fibromyalgia, anxiety, depression, and chronic back pain with neuropathy of bilateral upper and lower extremities. She is currently admitted under orthopedic surgery team status post lumbar fusion, laminectomy, facetectomy, and foraminotomy with insertion of biomechanical device. Surgical procedure was completed by Dr. Vences. We were consulted for medical management throughout hospitalization. Physical exam: Patient was seen and fully evaluated at bedside this morning. Batres catheter was just removed and patient reports she has not yet urinated but catheter was just removed. Patient states she has until 1130 and nurse stated she would BladderScan her. Patient reports postoperative pain is "manageable". She currently rates pain 6 out of 10 at this time. She denies having any hyperactive sensation today and denies having any numbness/tingling/focal weakness in her extremities. Patient sitting up in chair and denies having any further questions, needs, complaints, or concerns at this time. Vital signs reviewed and stable. General: Nontoxic, no distress and appears stated age. Derm: Skin warm and dry, normal coloration for ethnicity. Dressing in place to lumbar spine with Hemovac drain in place with dark red bloody drainage in tubing and collection chamber. Head: Atraumatic, normocephalic and symmetric. Eyes: EOM's intact, no lid lag, and anicteric sclera. Mouth: no lip lesions, mucus membranes moist Cardiovascular: regular rate and rhythm with normal S1S2, no murmur, positive posterior tibial pulses bilaterally, and cap refill < 2 seconds. Lungs: Respirations even, regular, and unlabored on room air. Lungs CTA bilater ally, no rhonchi, no rales, no wheezing, and no accessory muscle usage. Abdominal: soft, nontender to palpation, no guarding, no appreciable organomegaly Ext: Movement and sensation intact. No gross muscle atrophy, no edema, no contractures Neuro: Speech clear, face symmetrical and CN II-XII grossly intact with no noted focal neuro deficits Psych: Alert and oriented to person, place, time, and situation. Appropriate and pleasant affect. Assessment and Plan of Care: Status post lumbar fusion, laminectomy, facetectomy, and foraminotomy with insertion of biomechanical device. Chronic back pain with neuropathy of bilateral upper and lower extremities Management by primary admitting orthospine surgery team including DVT prophylaxis, pain management, wound/dressing/drain management, advancement of activity, and PT/OT. Currently DVT prophylaxis with PATRICIA hose and SCDs. Hypertension Hyperlipidemia Orthostatic hypotension and Florinef Atrial fibrillation with watchman's device CKD stage IIIb Hold aspirin and Florinef until cleared by orthospine surgery team to resume. Patient to continue atorvastatin 10 mg daily, furosemide 40 mg daily, metoprolol 50 mg twice daily, and midodrine 5 mg 3 times daily. COPD Obstructive sleep apnea Continue with supplemental oxygen and wean as patient tolerates to maintain SpO2 equal to or greater than 90%. Continue nebulizer treatments 4 times daily as needed for shortness of breath and/or wheezing andSymbicort 160-4.5 mcg inhaler 2 puffs twice daily. Continue CPAP nightly and while napping. Encourage use of incentive spirometry 10-15 times hourly while awake. Seizure disorder Fibromyalgia Anxiety with depression Continue daily medication regimen with Celexa 20 mg daily and buspirone 15 mg twice daily, Data and imaging reviewed: Reviewed postoperative labs. CBC showing mild leukocytosis with WBC count of 10.42. Hemoglobin 11.3. BMP showing sodium 139, potassium 4.8, chloride 104, bicarb 26.9, anion gap of 8.10, BUN of 12.4, creatinine 1.2, GFR of 54. Blood glucose was 113. Vital signs reviewed. Blood pressure 128/74, heart rate 96, respiratory rate 17, temp 98.3 F, and SpO2 of 99% on 2 L. Encouraged weaning of oxygen at this time and continued use of incentive spirometry.. Thank you for allowing us to participate in the care of this pleasant patient. Do not hesitate to contact us with questions. Someone can be reached from the [facility] hospitalist group all hours of the day at [phone] or via Blockchain serve. Patient was seen independently by Nurse Practitioner. This document was prepared using [employer] dictation software. Please allow for errors in pizza chef while rare they do occur. I reviewed the documentation as provided by the CAMILLA above, who is the original author of this note. I agree with the documented assessment and plan, with the following changes: none Objective - Vital Signs Vital signs: Vital Signs Temp 98.3 F 06/28/24 06:56 Pulse 96 06/28/24 06:56 Resp 17 06/28/24 06:56 BP 128/74 06/28/24 06:56 Pulse Ox 99 06/28/24 06:56 FiO2 Intake & Output 06/27/24 06/28/24 06/28/24 18:59 06:59 18:59 Intake Total 1901 1000 Output Total 500 1150 Balance 1401 -150 Weight 96.2 kg Intake: IV 1901 Intake, IV Titration 1000 Amount 0.9% NaCl with KCl 20 Meq 1000 /l 1,000 ml @ 50 mls/hr IV .Q20H [facility] Rx#: [id number] Output: Drainage 100 Back 100 Urine 400 1050 Estimated Blood Loss 100 Other: Voiding Method Indwelling Catheter - Labs CBC & Chem 7: 06/28/24 05:58 06/28/24 05:58
[2024-06-29 02:20] VITALS: RESP 16
[2024-06-29 07:47] VITALS: PULSE 61; TEMP 97.8
[2024-06-29 09:02] VITALS: BP 101/66
[2024-06-29] MEDS: CYCLOBENZAPRINE 10 MG TAB PO PRN (09:04)
[2024-06-29 09:17] LABS: HCT 35.5 % (37.2-46.3); MCH 30.6 pg (27.0-32.0); MCV 98.9 FL (80.0-97.0); Mean Platelet Volume 9.8 FL (9.5-12.2); NRBC Per 100 WBC 0 X 10*3/uL (0.00-0.01); Platelet Count 248 X 10*3/uL (140-440); RBC 3.59 X 10*6/uL (4.10-5.20); RDW 13.4 % (11.5-14.5); WBC 9.46 X 10*3/uL (4.50-10.00)
[2024-06-29 09:44] LABS: BUN/Creat Ratio 11.29 Ratio (12.00-20.00); Blood Urea Nitrogen 15.8 mg/dL (9.0-27.0); Calcium 9.1 mg/dL (8.7-10.3); Carbon Dioxide 27.9 mmol/L (21.6-31.8); Chloride 104 mmol/L (96-109); Glucose 111 mg/dL (70-110); Potassium 4.3 mmol/L (3.5-5.5); Sodium 141 mmol/L (135-145)
--- NOTE | 2024-06-29 10:12 | P.PN ---
Subjective Progress Note Date: 06/29/24 Principal diagnosis: 1. L3-S1 Spondylosis with stenosis 2. Foraminal stenosis 3. Bilateral lower extremity radiculopathy 4. Bilateral lower extremity weakness Patient seen and examined this morning. Patient was resting comfortably in bed. She was able to reposition herself independently to sit at bedside. Surgical incision to the lumbar spine, edges are well-approximated with romeo intact. Hemovac drain has been removed and new surgical dressing applied. Patient continues to report improvement in her lumbar pain and strength in her bilateral lower extremities since the procedure. Patient has been ambulatory with walker independently in room. LSO brace is present at bedside. Patient states that she feels comfortable with discharge home today with home care. No acute concerns at this time. Discharge instructions have been reviewed. Objective - Vital Signs Vital signs: Vital Signs Temp 97.8 F 06/29/24 06:46 Pulse 61 06/29/24 09:01 Resp 16 06/29/24 06:46 BP 101/66 06/29/24 09:01 Pulse Ox 96 06/29/24 06:46 FiO2 Intake & Output 06/28/24 06/29/24 06/29/24 18:59 06:59 18:59 Output Total 50 20 Balance -50 -20 Output: Drainage 50 20 Back 50 20 Other: Voiding Method Toilet Toilet # Voids 1 1 - Exam Physical Examination General: The patient is awake and alert, in no acute distress Skin: Skin is warm and dry with no obvious rashes or lesions. Surgical incision to the lumbar spine, edges are well-approximated with romeo intact. Hemovac drain has been removed and new dressing applied. Eye: Pupils are equal, round and reactive to light, extra-ocular movements are intact; there is normal conjunctiva bilaterally. Neck: The neck is supple, there is no tenderness and ROM intact. Cardiovascular: There is a regular rate and rhythm. No murmur, rub or gallop is appreciated. Respiratory: Respirations are non-labored, breath sounds are equal. Gastrointestinal: Soft, non-distended, non-tender abdomen. Back: There is no tenderness to palpation in the midline, paralumbar, parathoracic or buttocks region. There is no obvious deformity . Musculoskeletal: ROM limited secondary to pain and stiffness from surgical procedure. Right: Shoulder abduction 5/5, elbow flexors 5/5, wrist dorsiflexors 5/5. finger abductor 5/5, wind turbine controls engineer 5/5, hip flexor 5/5, knee flexor 5/5, ankle dorsiflexor 5/5, ankle plantarflexion 5/5 and extensor hallucis 5/5. Left: Shoulder abduction 5/5, elbow flexors 5/5, wrist dorsiflexors 5/5. finger abductor 5/5, wind turbine controls engineer 5/5, hip flexor 4-/5, knee flexor 4/5, ankle dorsiflexor 5/5, ankle plantarflexion 5/5 and extensor hallucis 5/5. Neurological: CN 2-12 intact. There are no obvious motor or sensory deficits. Movement and coordination equal and intact. Sensory exam to light touch intact C5-T1 and intact from L2-S1. Reflexes 2/4 in bilateral upper and lower extremities. Negative Hoffmans, babinski, and clonus signs. Psychiatric: Cooperative, appropriate mood & affect, normal judgment. - Labs CBC & Chem 7: 06/29/24 04:37 06/29/24 04:37 Labs: Abnormal Lab Results - Last 24 Hours (Table) 06/29/24 06/29/24 Range/Units 04:37 04:37 RBC 3.59 L (4.10-5.20) X 10*6/uL Hgb 11.0 L (12.0-15.0) g/dL Hct 35.5 L (37.2-46.3) % MCV 98.9 H (80.0-97.0) FL MCHC 31.0 L (32.0-37.0) g/dL Est GFR (CKD-EPI) 45 L (>=60) BUN/Creatinine Ratio 11.29 L (12.00-20.00) Ratio Glucose 111 H (70-110) mg/dL Assessment and Plan Assessment: Postop day 2: Revision L3-L4 decompression and fusion Plan: -Appreciate office 365 consultant and team management. -Activity: Ambulate QID, OOB all meals, up and about, limit lifting bending twisting to less than 5 lbs. Use walker or cane if needed for stability. -Daily PT/OT, increase ambulation strength and balance. -Brace when up and about, not needed in bed or chair -Pain control: Adequate at this time -Meds: reviewed -GI ppx: Cecil larsonalax -DVT PPX: Teds and SCDs -Hygiene: Shower today. Maintain dressing clean and dry. Meticulous cleaning after BMs away from the incision site -Encourage IS 10x/hr -Dispo: Discharge home today with home care *I reviewed and discussed this case with my attending Dr. Vences, whom has reviewed this chart and films and is in agreement with assessment and plan of care as outlined above. I have personally seen and examined the patient, performed the documentation and the assessment and plan as written. Number of minutes spent on the visit: 20m.
--- NOTE | 2024-06-29 10:14 | P.DS ---
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 They underwent appropriate preoperative care and were willing to undergo the intended procedure. They underwent a successful revision L3-L4 decompression and fusion, were recovered appropriately and sent to the floor. While on the floor they worked with physical therapy, occupational therapy and nursing to enhance their recovery experience. Their pain was well controlled through their stay and they were started on appropriate medications, DVT ppx modalities, activity and dietary needs. Daily labs were monitored closely, and transfusions were only used when necessary. Medicine as well as other consulting services have made their input and have helped with our team approach and multidisciplinary care. PT milestones have been met and passed and they have made the recommendation of home for this patient and treating providers agree with this care path. The patient will be discharged home with appropriate medications, instructions and follow-up information and in stable condition. Patient Condition at Discharge: Good Plan - Discharge Summary Discharge Rx Participant: No New Discharge Prescriptions: New Gabapentin 600 mg PO TID #90 tab oxyCODONE HCL [oxyCODONE HCL (IR)] 10 mg PO Q4H #28 tab Sennosides/Docusate Sodium [Senna Plus 8.6-50 mg Tablet] 1 each PO DAILY PRN #20 tab PRN Reason: Constipation metroNIDAZOLE [Flagyl] 500 mg PO TID #15 tab Cyclobenzaprine [Flexeril] 10 mg PO TID PRN #40 tab PRN Reason: Muscle Spasm No Action Gabapentin 600 mg PO TID Hydrocortisone Cream [Hydrocortisone 2.5% Cream] 1 applic TOPICAL BID Ammonium Lactate Cream [Lac-Hydrin 12% Cream] 1 applic TOPICAL BID oxyBUTYnin chloride [Ditropan] 5 mg PO BID Furosemide [Lasix] 40 mg PO DAILY #5 tablet Meclizine [Antivert] 25 mg PO TID PRN PRN Reason: Vertigo Citalopram Hydrobromide [CeleXA] 20 mg PO DAILY Atorvastatin [Lipitor] 10 mg PO DAILY Albuterol Inhaler [Ventolin Hfa Inhaler] 1 - 2 puff INHALATION RT-Q6H PRN PRN Reason: Shortness Of Breath Sucralfate [Carafate] 1 gm PO TID Midodrine [ProAmatine] 5 mg PO TID Aspirin 81 mg PO DAILY Vit No.180/Iron/Folic [ Plus Tablet] 1 tab PO DAILY Diclofenac Sodium Gel [Voltaren 1% Gel] 1 gm TOPICAL BID Budesonide/Formoterol Fumarate [Symbicort 160-4.5 Mcg Inhaler] 2 puff INHALATION RT-BID Famotidine [Pepcid] 20 mg PO HS Albuterol Nebulized [Ventolin Nebulized] 2.5 mg INHALATION RT-QID PRN PRN Reason: Shortness Of Breath busPIRone HCL 15 mg PO BID Fludrocortisone [Florinef] 0.1 mg PO DAILY Metoprolol Tartrate [Lopressor] 50 mg PO BID Discharge Medication List Albuterol Inhaler [Ventolin Hfa Inhaler] 1 - 2 puff INHALATION RT-Q6H PRN 10/11/22 [History] Aspirin 81 mg PO DAILY 10/11/22 [History] Atorvastatin [Lipitor] 10 mg PO DAILY 10/11/22 [History] Citalopram Hydrobromide [CeleXA] 20 mg PO DAILY 10/11/22 [History] Gabapentin 600 mg PO TID 10/11/22 [History] Midodrine [ProAmatine] 5 mg PO TID 10/11/22 [History] Vit No.180/Iron/Folic [ Plus Tablet] 1 tab PO DAILY 10/11/22 [History] Sucralfate [Carafate] 1 gm PO TID 10/11/22 [History] Ammonium Lactate Cream [Lac-Hydrin 12% Cream] 1 applic TOPICAL BID 06/23/23 [History] Budesonide/Formoterol Fumarate [Symbicort 160-4.5 Mcg Inhaler] 2 puff INHALATION RT-BID 06/23/23 [History] Diclofenac Sodium Gel [Voltaren 1% Gel] 1 gm TOPICAL BID 06/23/23 [History] Hydrocortisone Cream [Hydrocortisone 2.5% Cream] 1 applic TOPICAL BID 06/23/23 [History] Famotidine [Pepcid] 20 mg PO HS 09/27/23 [History] Albuterol Nebulized [Ventolin Nebulized] 2.5 mg INHALATION RT-QID PRN 11/09/23 [History] Fludrocortisone [Florinef] 0.1 mg PO DAILY 11/09/23 [History] Metoprolol Tartrate [Lopressor] 50 mg PO BID 11/09/23 [History] busPIRone HCL 15 mg PO BID 11/09/23 [History] oxyBUTYnin chloride [Ditropan] 5 mg PO BID 11/09/23 [History] Furosemide [Lasix] 40 mg PO DAILY #5 tablet 12/08/23 [Rx] Meclizine [Antivert] 25 mg PO TID PRN 06/20/24 [History] Cyclobenzaprine [Flexeril] 10 mg PO TID PRN #40 tab 06/28/24 [Rx] Gabapentin 600 mg PO TID #90 tab 06/28/24 [Rx] Sennosides/Docusate Sodium [Senna Plus 8.6-50 mg Tablet] 1 each PO DAILY PRN #20 tab 06/28/24 [Rx] metroNIDAZOLE [Flagyl] 500 mg PO TID #15 tab 06/28/24 [Rx] oxyCODONE HCL [oxyCODONE HCL (IR)] 10 mg PO Q4H #28 tab 06/28/24 [Rx] Follow up Appointment(s)/Referral(s): Emil Vences DO [Doctor of Osteopathic Medicine] - 2 Weeks Jamila Adams MD [Primary Care Provider] - 1 Week Activity/Diet/Wound Care/Special Instructions: Spine Discharge and Recovery Instructions Date of Surgery: 06/27/2024 Diagnosis: L3-L4 HNP Procedure: L3-L4 posterolateral interbody fusion Medications: See medication list All medication refills should be obtained through your primary care doctor or your clinic spine surgeon. Please discuss prescription refills at your follow up appointment. Do not call the hospital for medication refills. Activity: Encourage ambulation with assist of walker, Up and about 6-8x daily PT/OT daily work on balance, strength and mobility Up in chair with all meals Shower daily Brace: Use brace when up and about, do not wear in bed or shower Dressing: Leave your dressing in place for a total of 3 days post operatively. Then you may remove your dressing and leave open to air. Keep the area clean and if not able to keep area clean, then cover with sterile gauze and tape. Showering: You may shower 3 days after your procedure allowing soap and water to run over incision. Do not scrub. Do not soak. Blot dry. Follow up: Please confirm a follow up appointment with your surgeon 2 weeks post operatively. Please make an appointment to follow up with your PCP in 1-2 weeks after surgery for evaluation '3 phase, 3-week plan' POST OP WEEKS 1-3 1. Lifting/carrying/pushing/pulling limited to less than 5 pounds. 2. Do not sit for longer than 15 minutes at one time. Get up and walk around. Prolonged sitting is NOT advised. If you lay down, see if you can tolerate laying down on you front (belly side) 3. Walk for periods of 15 minutes = 1 mile but no longer; do it multiple times times each day. 4. Ice your low back after activity. POST OP WEEKS 3-6 1. Lifting limited to less than 20 pounds. 2. Do not sit for longer than 30 minutes at a time. Frequently change positions. Use a sit-to stand workstation or take frequent breaks from sitting if you have returned to work. 3. Walk for 30 minutes each day. If possible, do these three or more times a day POST OP WEEKS 6+ At your 6-week appointment we will give you a physical therapy referral to focus on a core stabilization and strengthening program. You should also work on leg & buttock strengthening, hamstring & quadriceps stretching, and continue a low impact aerobic activity program such as swimming, walking, or riding a stationa ry bicycle. During the initial 6 weeks after your surgery, you are at the highest risk of re-injuring your spine. You should generally avoid BLT's (bending, lifting and twisting combination motions) and follow the above guidelines to reduce the chance of reinjury. You can anticipate post op appointments in our office at approximately 3 weeks and 6 weeks after your surgery. INCISION CARE: If your incision is not draining you do NOT need to cover it with a dressing. Keep your incision clean, dry and intact. In most cases, we apply skin glue, romeo or sutures to the incision at the time of surgery. This will be like a crust or have the appearance of a scab and will fall off in time on its own. The stitches or romeo need to be removed at 3 weeks post op appointment. You may begin to shower 3 days after surgery (this allows the glue to wallis well). However, please avoid scrubbing the incision site or peeling off any of the skin glue. This will ensure optimal healing of your incision. Also, during this time avoid soaking the incision area in water - this includes swimming pools, hot tubs or baths. No ointments, lotions or oils on the incision until your surgeon allows. Leave romeo, sutures or glue in place. Neurological dysfunction that comes on suddenly can also be a sign of a stroke. Below some common symptoms of a stroke are listed: B - balance difficulty such as sudden onset walking or leaning to one side - NEW E - eye problem such as sudden double vision or trouble seeing on one side - NEW F - Facial weakness or numbness on one side - NEW A - Arm or leg weakness or numbness on one side - NEW S - Slurred speech or difficulty with word finding - NEW T - Time is BRAIN! Call 911 as soon as you recognize these symptoms Diet: Consume a regular diet rich in vegetables and lean protein such as chicken or fish. You should consume in a ratio of approximately 20% fats|40% carbohydra cinda|40%protein. Vegetables, sweet potatoes, brown rice or quinoa are examples of good carbohydrates. Chips, white bread, cookies and sweets/sugar are examples of bad carbohydrates. Limit your bad carbs, go wild with good carbs. 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 (1) Get Active. Physical activity can help people lose weight, control high blood pressure and cholesterol, feel emotionally better, and sleep better. (2) Control Cholesterol. Avoid a diet high in saturated fat, trans fat, & cholesterol. Limit whole milk & cream, ice cream, butter, egg yolks, processed meats (like sausage and hot dogs), and fatty meats. Choose healthy foods that are low in saturated fat, trans fat and cholesterol which include: Fruits and vegetables, fiber rich grain products (like whole grain pasta and brown rice), lean meat such as chicken, fish, nuts, seeds, and legumes. (3) Eat Better. Eat small portions. Shop at the grocery with a list and do not stray from it. Tips for a healthy diet include: Limit sodium intake to less than 1500mg daily, avoid prepackaged, processed, and fast foods, choose a diet rich in fruits, vegetables, and whole grain, high fiber foods, and limit saturated & cholesterol in your diet. (4) Manage Blood Pressure. If you have high blood pressure, you should have a cuff at home so that you can check your blood pressure regularly. Be sure you have a good cuff. An arm one is generally better than a wrist one. Bring the cuff to a doctor's appointment to validate that the measurements that your cuff are taking are accurate. Take your blood pressure twice daily when you are sitting down and relaxing. Record the numbers in a log and bring this log with you to your doctors' appointments. (5) Lose Weight if your BMI is above 25. A healthy BMI is between 19-25. To calculate Your BMI, you may use a Standard BMI Calculator on the NIH BMI website: <www.nhlbi.nih.gov/guidelines/obesity/BMI/bmicalc.htm>. Weigh oneself daily. If you are overweight, set a goal to lose weight. A pound a week loss if needed is a good target. (6) Reduce Blood Sugar. Limit foods and liquids with "added sugars." (Added sugars include sucrose, fructose, glucose, maltose, dextrose, high fructose corn syrup, corn syrup, concentrated fruit juice and honey). (7) Stop Smoking. If you smoke, quitting smoking is one of the best things that you can do for your health. Smoking increases your risk of heart attack, stroke, and peripheral vascular disease, which is a build-up of plaque in your arteries. Please discard all the cigarettes and lighters in your house. Have a plan for what you will do when you have the urge to smoke. Direct and second- hand smoke shortens your life as well as the lives of your family, friends and others around you. For your health and the health of those around you, please consider quitting! Proper Bending Body Mechanics: Maintain a wide stance with one foot slightly in front of the other. Keep your back straight. Bend utilizing the strength in your hips and knees. Do not bend at the waist. Maintain the lifted object at your waist-level close to your body. Avoid lifting weight that causes immediately pain or pain anywhere in the body afterwards. Smoking/Nicotine If there was ever one thing that you could do to increase your overall health, decrease your risk of cardiovascular problems by about 39% the second you make the choice, it is to STOP SMOKING. Your body's most instant gratification is the second you stop smoking. We have all heard the studies, read the articles but it is true, smoking is extremely bad for your overall health, and moreover it is detrimental to your bone health. Nicotine, IN ANY FORM, kills bone cells, prevents your body from healing fractures, and significantly prolongs healing after surgery. In spine surgery specifically, it increases your risk of not healing your bones to create a fusion and increases your risk of having a revision surgery due to this up to 60%. I know it is hard. I know it feels impossible. But there are ways. Take control of your life. We are here to help you through it. And when you are ready, ask us and we can direct you to help if you desire. Use the START Plan to Quit Smoking (please visit the Helpguide.org website listed below for more information): S = Set a quit date. Choose a date within the next 2 weeks, so you have enough time to prepare without losing your motivation to quit. If you mainly smoke at work, quit on the weekend, so you have a few days to adjust to the change. T = Tell family, friends, and co-workers that you plan to quit. Let your friends and family in on your plan to quit smoking and tell them you need their support and encouragement to stop. Look for a quit jack who wants to stop smoking as well. You can help each other get through the rough times. A = Anticipate and plan for the challenges you'll face while quitting. Most people who begin smoking again do so within the first 3 months. You can help yourself make it through by preparing ahead for common challenges, such as nicotine withdrawal and cigarette cravings. R = Remove cigarettes and other tobacco products from your home, car, and work. Throw away all your cigarettes (no emergency pack!), lighters, ashtrays, and matches. Wash your clothes and freshen up anything that smells like smoke. Shampoo your car, clean your drapes and carpet, and steam your furniture. T = Talk to your doctor about getting help to quit. Your doctor can prescribe medication to help with withdrawal and suggest other alternatives. If you can't see a doctor, you can get many products over the counter at your local pharmacy or grocery store, including the nicotine patch, nicotine lozenges, and nicotine gum. Resources for Quitting Smoking: <https://www.[place].gov/documents/[facility]/Quit_Tobacco_Resources_for_patients_313 480_7.pdf> Supplementation: Take recommended dosages of Vitamin D and Calcium to help fortify your bones and help them to heal. See your health maintenance packet for dosages and recommended levels. DVT/VTE prophylaxis: You will be given compression stockings from the hospital. Wear these daily for the first two weeks after surgery. You may take them off at night. You may be prescribed a medication to help thin your blood. Take this as directed. If you are not prescribed this medication, early and frequent ambulation has been shown to be the best prophylaxis to deep vein thrombosis and sequelae related to this event.
--- NOTE | 2024-06-29 14:40 | P.PN ---
Subjective Progress Note Date: 06/29/24 Hospital course: Patient is a pleasant 53-year-old female with a past medical history of hypertension, hyperlipidemia, atrial fibrillation no longer on anticoagulation status post watchman's device, CKD stage IIIb, seizure disorder, fibromyalgia, anxiety, depression, and chronic back pain with neuropathy of bilateral upper and lower extremities. She is currently admitted under orthopedic surgery team status post lumbar fusion, laminectomy, facetectomy, and foraminotomy with insertion of biomechanical device. Surgical procedure was completed by Dr. Vences. We were consulted for medical management throughout hospitalization. Physical exam: Patient was seen and fully evaluated at bedside this morning. She appeared to be resting comfortably. TLSO brace in place and Hemovac drain remains in place. Patient reports urinating without difficulties and controlled postoperative pain. She reports normal appetite and no episodes of nausea or vomiting. Patient reports she feels ready for discharge home. Vital signs reviewed and stable. General: Nontoxic, no distress and appears stated age. Derm: Skin warm and dry, normal coloration for ethnicity. Dressing in place to lumbar spine with Hemovac drain in place with dark red bloody drainage in tubing and collection chamber. Head: Atraumatic, normocephalic and symmetric. Eyes: EOM's intact, no lid lag, and anicteric sclera. Mouth: no lip lesions, mucus membranes moist Cardiovascular: regular rate and rhythm with normal S1S2, no murmur, positive posterior tibial pulses bilaterally, and cap refill < 2 seconds. Lungs: Respirations even, regular, and unlabored on room air. Lungs CTA bilaterally, no rhonchi, no rales, no wheezing, and no accessory muscle usage. Abdominal: soft, nontender to palpation, no guarding, no appreciable organomegaly Ext: Movement and sensation intact. No gross muscle atrophy, no edema, no co ntractures Neuro: Speech clear, face symmetrical and CN II-XII grossly intact with no noted focal neuro deficits Psych: Alert and oriented to person, place, time, and situation. Appropriate and pleasant affect. Assessment and Plan of Care: Status post lumbar fusion, laminectomy, facetectomy, and foraminotomy with insertion of biomechanical device. Chronic back pain with neuropathy of bilateral upper and lower extremities Management by primary admitting orthospine surgery team including DVT prophylaxis, pain management, wound/dressing/drain management, advancement of activity, and PT/OT. Currently DVT prophylaxis with PATRICIA hose and SCDs. Hypertension Hyperlipidemia Orthostatic hypotension and Florinef Atrial fibrillation with watchman's device CKD stage IIIb Hold aspirin and Florinef until cleared by orthospine surgery team to resume. Patient to continue atorvastatin 10 mg daily, furosemide 40 mg daily, metoprolol 50 mg twice daily, and midodrine 5 mg 3 times daily. COPD Obstructive sleep apnea Continue with supplemental oxygen and wean as patient tolerates to maintain SpO2 equal to or greater than 90%. Continue nebulizer treatments 4 times daily as needed for shortness of breath and/or wheezing andSymbicort 160-4.5 mcg inhaler 2 puffs twice daily. Continue CPAP nightly and while napping. Encourage use of incentive spirometry 10-15 times hourly while awake. Seizure disorder Fibromyalgia Anxiety with depression Continue daily medication regimen with Celexa 20 mg daily and buspirone 15 mg twice daily, Data and imaging reviewed: -Morning labs reviewed. CBC showing stable postoperative blood loss anemia with hemoglobin of 11.0 and resolution of leukocytosis with WBC count of 9.46. BMP unremarkable. Blood glucose 111. Magnesium 2.0. -Vital signs reviewed and stable. Blood pressure 112/73, heart rate 61, respiratory rate 16, temp 97.8 F, and SpO2 of 96% on room air. Patient is medically optimized and cleared from medical perspective for discharge once cleared by primary admitting orthospine surgery team. Patient to resume aspirin and Florinef once cleared by primary orthospine team to resume. Thank you for allowing us to participate in the care of this pleasant patient. Do not hesitate to contact us with questions. Someone can be reached from the [facility] hospitalist group all hours of the day at [phone] or via [employer]. Patient was seen independently by Nurse Practitioner. This document was prepared using [employer] dictation software. Please allow for errors in telephone sales agent while rare they do occur. I reviewed the documentation as provided by the CAMILLA above, who is the original author of this note. I agree with the documented assessment and plan, with the following changes: none Objective - Vital Signs Vital signs: Vital Signs Temp 97.8 F 06/29/24 06:46 Pulse 61 06/29/24 06:46 Resp 16 06/29/24 06:46 BP 112/73 06/29/24 06:46 Pulse Ox 96 06/29/24 06:46 FiO2 Intake & Output 06/28/24 06/29/24 06/29/24 18:59 06:59 18:59 Output Total 50 20 Balance -50 -20 Output: Drainage 50 20 Back 50 20 Other: Voiding Method Toilet Toilet # Voids 1 1 - Labs CBC & Chem 7: 06/29/24 04:37 06/29/24 04:37 Labs: Abnormal Lab Results - Last 24 Hours (Table) 06/28/24 06/28/24 Range/Units 05:58 05:58 WBC 10.42 H (4.50-10.00) X 10*3/uL RBC 3.73 L (4.10-5.20) X 10*6/uL Hgb 11.3 L (12.0-15.0) g/dL Hct 35.7 L (37.2-46.3) % MCHC 31.7 L (32.0-37.0) g/dL Neutrophils # 8.45 H (1.80-7.70) X 10*3/uL Eosinophils # 0 L (0.04-0.35) X 10*3/uL Est GFR (CKD-EPI) 54 L (>=60) BUN/Creatinine Ratio 10.33 L (12.00-20.00) Ratio Glucose 113 H (70-110) mg/dL Calcium 8.5 L (8.7-10.3) mg/dL
--- NOTE | 2024-07-08 20:29 | CT ---
EXAMINATION TYPE: CT lumbar spine wo con DATE OF EXAM: 06/28/2024 COMPARISON: Pre surgical MRI lumbar spine 04/22/2024 HISTORY: S/P Lumbar fusion CT DLP: 1434.6 mGycm CONTRAST: None TECHNIQUE: CT of the lumbar spine is performed on a spiral scan at 3 mm thick sections. Reconstructed images are performed in the coronal and sagittal planes. FINDINGS: T12-L1: No focal disc herniation or significant disc bulge is evident. No spinal canal stenosis or neural foraminal stenosis is present. L1-L2: No focal disc herniation or significant disc bulge is evident. No spinal canal stenosis or n eural foraminal stenosis is present L2-L3: Very minimal disc bulge may have anterior thecal sac flattening. No spinal canal stenosis or n eural foraminal stenosis is present L3-L4: No focal disc herniation or significant disc bulge is evident. No spinal canal stenosis or n eural foraminal stenosis is present L4-L5: Disc spacers present. Pedicle screws are present L4-5. Vertebral body alignment is preserved. Vertebral body heights are preserved. L5-S1: No focal disc herniation or significant disc bulge is evident. No spinal canal stenosis or n eural foraminal stenosis is present Vertebral alignment appears normal. Postsurgical soft tissue changes are evident. IMPRESSION: 1. Postsurgical change L4-5 disc spacer and pedicle screw placement. [facility], , 07/08/2024 8:27 PM
--- NOTE | 2024-07-09 18:22 | FL ---
EXAMINATION TYPE: FL guidance operating room, XR lumbar spine 2 or 3V DATE OF EXAM: 06/27/2024 10:33 AM COMPARISON: Pre Operative Images if available both CT/MRI or plain film CLINICAL INDICATION: Female, 53 years old with history of L4-L5 Fusion; TECHNIQUE: FL guidance operating room, XR lumbar spine 2 or 3V, multiple fluoroscopic images provided for procedure. Total fluoroscopy time: 20 seconds Total submitted images to PACS: 9 DAP: [id number] mGym2 Gycm2 uGym2 cGycm2 FINDINGS: Fluoroscopic images during internal fixation/arthroplasty demonstrate fixation hardware in appropriat e position. Hardware appears intact. No immediate complication identified. IMPRESSION: 1. No evidence for intraoperative complication. 2. Please see the operative/procedural note for further details. [facility], , 07/09/2024 6:19 PM
== END 2024-06-29 11:07 | disposition home health service (06) ==
LOC: OR 05:34 → 4SSUR 10:57 → OR 06-29 11:07
PROVIDERS: ATTEND Orthopaedic Surgery
DX: M51.26 Other intervertebral disc displacement, lumbar region
CPT/HCPCS: 72100; 72131; 80048; 83735; 85025; 85027; 94640

== ENCOUNTER 2024-07-05 20:18 | Emergency (ER) | payer OTHER ==
[2024-07-05 20:33] VITALS: RESP 18
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
[2024-07-05] MEDS: MORPHINE SULFATE 4 MG/ML SYRINGE IM STA (21:39)
--- NOTE | 2024-07-05 22:03 | XR ---
EXAMINATION TYPE: XR ankle complete LT DATE OF EXAM: 07/05/2024 9:58 PM CLINICAL INDICATION: Female, 53 years old with history of fall injury; [facility] COMPARISON: None TECHNIQUE: XR ankle complete LT; ankle is imaged in frontal, lateral and oblique projections. FINDINGS: There is no evidence of acute osseous pathology. No evidence of subluxation or dislocation. Kager's fat pad is intact. Soft tissues are within normal limits. No radiopaque foreign bodies are identified . IMPRESSION: No evidence of acute fracture. [facility], , 07/05/2024 10:01 PM
--- NOTE | 2024-07-05 22:03 | XR ---
EXAMINATION TYPE: XR lumbar spine 2 or 3V DATE OF EXAM: 07/05/2024 9:58 PM CLINICAL INDICATION: Female, 53 years old with history of fall injury; [facility] COMPARISON: 04/28/2023 TECHNIQUE: XR lumbar spine 2 or 3V - Frontal, lateral and coned in L5-S1 lateral views of the spine. FINDINGS: No evidence of any acute osseous pathology. No evidence of loss of vertebral body height i s seen. There is normal alignment of the lumbar vertebral bodies. Post surgical changes to the spine with fixation hardware at L4, L5. Hardware appears intact. Mild multilevel degeneration changes with joint space narrowing osteophyte formation disc and facet joint arthropathy. Skin romeo present. Gaseous dilation of colon with moderate to large amount of stool. IMPRESSION: 1. No acute fracture. 2. Postsurgical changes with hardware intact. 2. Gaseous dilation of colon with large amount stool. [facility], , 07/05/2024 10:00 PM
[2024-07-05 23:34] VITALS: BP 134/69; PULSE 68; TEMP 97.6
== END 2024-07-05 23:34 | disposition home or self-care (01) ==
LOC: EC 20:18
CPT/HCPCS: 72100; 96372; 99283

== ENCOUNTER → 2024-12-11 | Outpatient (CLI) | payer OTHER ==
--- NOTE | 2024-12-11 17:30 | MM ---
Reason for Exam: Screening (asymptomatic). Last mammogram was performed 1 year(s) and 3 month(s) ago. Patient History: Menarche at age 11. First Full-Term at age 22. Hysterectomy at age 31. Other cancer, age 25. Patient used Hormonal Contraceptives for 7 years. Risk Values: Amanda 5 year model risk: 1.1%. NCI Lifetime model risk: 8.2%. Prior Study Comparison: 09/26/2023 Bilateral MG screening mammo w CAD, [facility]. Tissue Density: The breasts are almost entirely fatty. Findings: Analyzed By CAD. There is no suspicious group of microcalcifications or new suspicious mass in either breast. Overall Assessment: Negative, BI-RAD 1 Management: Screening Mammogram of both breasts in 1 year. Patient should continue monthly self-breast exams. A clinical breast exam by your physician is recommended on an annual basis. This exam should not preclude additional follow-up of suspicious palpable abnormalities. Note on Amanda scores and lifetime risk: 1. A Amanda score greater than 3% is considered moderate risk. If this is the case, consider specialist referral to assess eligibility for a risk reducing agent. 2. If overall lifetime risk for the development of breast cancer is 20% or higher, the patient may qualify for future screening with alternating mammogram and breast MRI. [facility], , 12/11/2024 5:26 PM. Electronically signed and approved by: Maribel Mendoza M.D. Radiologist
== END | disposition home or self-care (01) ==
LOC: RADMAMWWP 13:10
PROVIDERS: ATTEND Family Medicine
DX: Z12.31 Encounter for screening mammogram for malignant neoplasm of breast (principal); R92.313 Mammographic fatty tissue density, bilateral breasts; Z92.0 Personal history of contraception
CPT/HCPCS: 77067

== ENCOUNTER 2024-12-16 10:43 | Emergency (ER) | payer OTHER ==
[2024-12-16 10:46] VITALS: RESP 18; TEMP 98.8
[2024-12-16] MEDS: ORPHENADRINE 30 MG/ML 2 ML VIAL IM STA (11:24)
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
[2024-12-16] MEDS: KETOROLAC 15 MG/ML 1 ML VIAL IM STA (12:50)
[2024-12-16] MEDS: LIDOCAINE 4% PATCH TOPICAL ONE (12:53)
[2024-12-16 12:58] VITALS: BP 140/90; PULSE 58
== END 2024-12-16 12:58 | disposition home or self-care (01) ==
LOC: EC 10:43
DX: S16.1XXA Strain of muscle, fascia and tendon at neck level, initial encounter (principal); F17.200 Nicotine dependence, unspecified, uncomplicated; X58.XXXA Exposure to other specified factors, initial encounter
CPT/HCPCS: 99283; 96372 ×2; J2360; J1885

== ENCOUNTER → 2025-01-24 | Outpatient (CLI) | payer OTHER ==
--- NOTE | 2025-01-24 15:13 | MR ---
EXAMINATION TYPE: MR cervical spine wo con DATE OF EXAM: 01/24/2025 1:34 PM COMPARISON: None. CLINICAL INDICATION: Female, 54 years old with history of M47.22 OTHER SPONDYLOSIS WITH RADICULOPATHY , CERVI, Neck pain, headaches, BUE radiculopathy. TECHNIQUE: Multiplanar, multisequence images of the cervical spine were acquired without contrast. FINDINGS: No gross abnormality, predental space widening, or prevertebral soft tissue swelling. There is preserved alignment of the cervical spine with mild degenerative disc disease characterized by intervertebral disc desiccation. Small disc protrusions at various levels, right paracentral C3-C4 and C4-C5 (both of which contain an nular fissures) and central at C5-C6. These changes impress on the ventral thecal sac but do not caus e any significant spinal canal stenosis. No suspicious bone marrow replacement. Scattered mild facet and uncovertebral joint arthropathy. Changes result in mild right neuroforaminal stenosis at C4-C5 and C5-C6. No significant neural foraminal stenosis seen. No prevertebral or paravertebral soft tissue abnormality. Normal course, caliber, and signal intensity of the cervical spinal cord. IMPRESSION: 1. Mild degenerative disc desiccation throughout. Small disc protrusions are present at C3-C4 and C4- C5 containing annular fissures. Additional small central disc protrusion at C5-C6. These do not contr ibute to any significant spinal canal stenosis. 2. Additional scattered mild facet arthropathy. Changes contribute to mild right neuroforaminal steno sis at C4-C5 and C5/C6. [facility], Workstation: [id number], 01/24/2025 3:11 PM
== END | disposition home or self-care (01) ==
LOC: RADMRIMAIN 12:37
PROVIDERS: ATTEND Orthopaedic Surgery
DX: M50.122 Cervical disc disorder at C5-C6 level with radiculopathy (principal); M47.22 Other spondylosis with radiculopathy, cervical region; M99.71 Connective tissue and disc stenosis of intervertebral foramina of cervical region
CPT/HCPCS: 72141

== ENCOUNTER 2025-03-30 14:38 | Emergency (ER) | payer OTHER ==
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
--- NOTE | 2025-03-30 16:50 | XR ---
EXAMINATION TYPE: XR chest 2V DATE OF EXAM: 03/30/2025 4:43 PM COMPARISON: Chest radiograph 06/09/2024. CLINICAL INDICATION: Female, 54 years old with history of cough; [facility] TECHNIQUE: XR chest 2V Frontal and lateral views of the chest. FINDINGS: Lungs/Pleura: There is no evidence of pleural effusion, focal consolidation, or pneumothorax. Pulmonary vascularity: Unremarkable. Heart/mediastinum: Cardiomediastinal silhouette is unremarkable. Musculoskeletal: No acute osseous pathology. Other findings: None IMPRESSION: No acute cardiopulmonary disease/process. [facility], , 03/30/2025 4:48 PM
[2025-03-30 17:47] LABS: Basophils # (A) 0.02 10*3/uL (0.00-0.10); Basophils % (A) 0.3 %; Eosinophils # (A) 0.21 10*3/uL (0.04-0.35); Eosinophils % (A) 2.9 %; HCT 40.8 % (37.2-46.3); HGB 13.9 g/dL (12.0-15.0); Lymphocytes # (A) 2.19 10*3/uL (0.90-5.00); Lymphocytes % (A) 30.2 %; MCH 32.2 pg (27.0-32.0); MCHC 34.1 g/dL (32.0-37.0); MCV 94.4 fL (80.0-97.0); Monocytes # (A) 0.44 10*3/uL (0.20-1.00); Monocytes % (A) 6.1 %; Neutrophils # (A) 4.39 10*3/uL (1.80-7.70); Neutrophils % (A) 60.4 %; Platelet Count 198 10*3/uL (140-440); RBC 4.32 10*6/uL (4.10-5.20); RDW 13.9 % (11.5-14.5); WBC 7.26 10*3/uL (4.50-10.00)
[2025-03-30 18:29] LABS: Influenza A Not Detected (Not Detectd); Influenza B Not Detected (Not Detectd); RSV Not Detected (Not Detectd)
[2025-03-30 22:18] LABS: ALT 20 U/L (4-34); African American GFR (CKD) 70 (>60 ml/min/1.73 sqM); Albumin 3.5 g/dL (3.5-5.0); Anion Gap 6 mmol/L; Blood Urea Nitrogen 18 mg/dL (7-17); Calcium 9.5 mg/dL (8.4-10.2); Carbon Dioxide 28 mmol/L (22-30); Chloride 102 mmol/L (98-107); Glucose 102 mg/dL (74-99); Non-African American GFR(CKD) 60 (>60 ml/min/1.73 sqM); Sodium 136 mmol/L (137-145); Total Bilirubin 0.9 mg/dL (0.2-1.3)
[2025-03-30 22:24] LABS: AST 27 U/L (14-36); Alkaline Phosphatase 83 U/L (38-126); Potassium 4.1 mmol/L (3.5-5.1)
[2025-03-30] MEDS: AZITHROMYCIN 500 MG TAB PO STA (22:34)
[2025-03-30 22:35] VITALS: BP 175/93; PULSE 97; RESP 19; TEMP 98.9
[2025-03-30] MEDS: predniSONE 20 MG TAB PO STA (22:35)
== END 2025-03-30 22:40 | disposition home or self-care (01) ==
LOC: EC 14:38
DX: J40 Bronchitis, not specified as acute or chronic (principal); F17.200 Nicotine dependence, unspecified, uncomplicated; Z91.040 Latex allergy status; Z88.2 Allergy status to sulfonamides; Z88.5 Allergy status to narcotic agent; Z88.1 Allergy status to other antibiotic agents; Z88.8 Allergy status to other drugs, medicaments and biological substances; Z91.030 Bee allergy status
CPT/HCPCS: 36415; 93005; 80053; 83605; 85025; 87636; 71046; 99285; J7512

== ENCOUNTER 2025-04-11 12:56 | Observation (INO) | payer OTHER ==
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
[2025-04-11] MEDS: NITROGLYCERIN OINT 1 INCH/GM PACKET TOPICAL STA (13:52)
[2025-04-11 13:53] LABS: Basophils # (A) 0.02 10*3/uL (0.00-0.10); Basophils % (A) 0.2 %; Eosinophils # (A) 0.10 10*3/uL (0.04-0.35); Eosinophils % (A) 0.9 %; HCT 39.9 % (37.2-46.3); HGB 13.6 g/dL (12.0-15.0); Lymphocytes # (A) 2.18 10*3/uL (0.90-5.00); Lymphocytes % (A) 18.6 %; MCH 32.4 pg (27.0-32.0); MCHC 34.1 g/dL (32.0-37.0); MCV 95.0 fL (80.0-97.0); Monocytes # (A) 0.68 10*3/uL (0.20-1.00); Monocytes % (A) 5.8 %; Neutrophils # (A) 8.71 10*3/uL (1.80-7.70); Neutrophils % (A) 74.2 %; Platelet Count 185 10*3/uL (140-440); RBC 4.20 10*6/uL (4.10-5.20); RDW 14.4 % (11.5-14.5); WBC 11.72 10*3/uL (4.50-10.00)
[2025-04-11 14:06] LABS: ALT 27 U/L (4-34); African American GFR (CKD) 67 (>60 ml/min/1.73 sqM); Albumin 3.3 g/dL (3.5-5.0); Anion Gap 4 mmol/L; Blood Urea Nitrogen 23 mg/dL (7-17); Calcium 9.2 mg/dL (8.4-10.2); Carbon Dioxide 33 mmol/L (22-30); Chloride 100 mmol/L (98-107); Glucose 87 mg/dL (74-99); Non-African American GFR(CKD) 58 (>60 ml/min/1.73 sqM); Sodium 137 mmol/L (137-145); Total Protein 5.6 g/dL (6.3-8.2)
[2025-04-11 14:09] LABS: INR 0.9 (<1.2); Partial Thromboplastin Time 21.6 sec (22.0-30.0); Prothrombin Time 10.1 sec (10.0-12.5)
[2025-04-11 14:12] LABS: AST 32 U/L (14-36); Alkaline Phosphatase 59 U/L (38-126); Magnesium 2.2 mg/dL (1.6-2.3); Potassium 4.0 mmol/L (3.5-5.1)
[2025-04-11] MEDS ORDERED: NITROGLYCERIN SL TABS 0.4 MG TAB SUBLINGUAL PRN (14:20)
--- NOTE | 2025-04-11 14:22 | XR ---
EXAMINATION TYPE: XR chest 2V DATE OF EXAM: 04/11/2025 1:51 PM COMPARISON: Chest radiographs from 03/30/2025. CLINICAL INDICATION: Female, 54 years old with history of Chest Pain; [facility] TECHNIQUE: XR chest 2V Frontal and lateral views of the chest. FINDINGS: Lungs/Pleura: There is no evidence of pleural effusion, focal consolidation, or pneumothorax. Pulmonary vascularity: Unremarkable. Heart/mediastinum: Cardiomediastinal silhouette is unremarkable. Musculoskeletal: No acute osseous pathology. Other findings: None IMPRESSION: No acute cardiopulmonary disease/process. [facility], , 04/11/2025 2:20 PM
[2025-04-11] MEDS ORDERED: ALBUTEROL NEBULIZED 2.5 MG/3 ML INHALATION PRN ×2 (14:47)
[2025-04-11] MEDS ORDERED: SENNOSIDES-DOCUSATE SODIUM 1 EACH TAB PO PRN (14:47)
[2025-04-11] MEDS ORDERED: MECLIZINE 25 MG TAB PO PRN (14:47)
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
[2025-04-11] MEDS: NICOTINE 21MG/24HR PATCH TRANSDERM SCH (15:54)
[2025-04-11] MEDS: HEPARIN SODIUM,PORCINE 5,000 UNIT/ML 1 ML VIAL SQ SCH (15:54)
[2025-04-11] MEDS: SUCRALFATE 1 GM TAB PO SCH (15:54)
[2025-04-11] MEDS ORDERED: ACETAMINOPHEN TAB 325 MG TAB PO PRN (17:35)
[2025-04-11] MEDS: NITROGLYCERIN OINT 1 INCH/GM PACKET TOPICAL SCH (17:48)
[2025-04-11] MEDS: MAG HYDROX/AL HYDROX/SIMETH 30 ML CUP PO STA (17:48)
[2025-04-11] MEDS: SYMBICORT 160-4.5 MCG INHALER INHALATION SCH (18:22)
[2025-04-11] MEDS: FAMOTIDINE 20 MG TAB PO SCH (21:05)
[2025-04-11] MEDS: GABAPENTIN 300 MG CAP PO SCH (21:07)
[2025-04-11] MEDS: METOPROLOL TARTRATE 50 MG TAB PO SCH (21:07)
[2025-04-11] MEDS: PANTOPRAZOLE 40 MG TABLET PO SCH (22:04)
[2025-04-11] MEDS: MIDODRINE 5 MG TAB PO SCH (22:04)
[2025-04-12 02:02] VITALS: TEMP 98.2
[2025-04-12] MEDS: ASPIRIN 81 MG PO SCH (08:45)
[2025-04-12] MEDS: ATORVASTATIN 10 MG TAB PO SCH (08:45)
[2025-04-12] MEDS: FUROSEMIDE 40 MG TAB PO SCH (08:45)
[2025-04-12] MEDS: CITALOPRAM HYDROBROMIDE 20 MG TAB PO SCH (08:45)
[2025-04-12] MEDS ORDERED: FLUDROCORTISONE 0.1 MG TAB PO SCH (09:00)
[2025-04-12] MEDS ORDERED: ASPIRIN 325 MG TAB PO SCH (09:00)
[2025-04-12 09:24] LABS: HCT 42.9 % (37.2-46.3); HGB 13.8 g/dL (12.0-15.0); MCH 31.9 pg (27.0-32.0); MCHC 32.2 g/dL (32.0-37.0); MCV 99.3 FL (80.0-97.0); NRBC Per 100 WBC 0 X 10*3/uL (0.00-0.01); Platelet Count 186 X 10*3/uL (140-440); RBC 4.32 X 10*6/uL (4.10-5.20); RDW 14.8 % (11.5-14.5); WBC 9.16 X 10*3/uL (4.50-10.00)
[2025-04-12 10:16] VITALS: PULSE 67
[2025-04-12 10:16] LABS: Anion Gap 10.90 mmol/L (4.00-12.00); BUN/Creat Ratio 19.67 Ratio (12.00-20.00); Blood Urea Nitrogen 23.6 mg/dL (9.0-27.0); Calcium 8.7 mg/dL (8.7-10.3); Carbon Dioxide 29.1 mmol/L (21.6-31.8); Chloride 102 mmol/L (96-109); Cholesterol 151.00 mg/dL (0.00-200.00); Glucose 94 mg/dL (70-110); HDL Cholesterol 56.60 mg/dL (40.00-60.00); LDL Cholesterol,Calculated 76.1 mg/dL (0.0-131.0); Magnesium 2.4 mg/dL (1.5-2.4); Potassium 4.1 mmol/L (3.5-5.5); Sodium 142 mmol/L (135-145); Triglycerides 91.70 mg/dL (0.00-149.00); VLDL Calculation 18.34 mg/dL (5.00-40.00)
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
[2025-04-12 12:34] VITALS: BP 109/74; RESP 17
--- NOTE | 2025-04-12 13:28 | P.DS ---
Providers Date of admission: 04/11/25 14:20 Expected date of discharge: 04/12/25 Attending physician: Christ Shukla Consults: 04/11/25 14:20 Consult Physician Urgent Consulting Provider: [facility] Consult Reason/Comments: Chest pain Do you want consulting provider notified?: Yes Primary care physician: [facility] Course: Discharge Diagnosis: Chest pain, acute coronary event ruled out EKG changes, newly noted T wave inversion in inferior lead III. Hypertension, poorly controlled. Nonobstructive CAD Hyperlipidemia Paroxysmal atrial fibrillation status postimplantation of watchman's device COPD, not in acute exacerbation Nicotine dependence Hospital Course: Patient is a pleasant 54-year-old female with a past medical history of CAD with no previous stenting and follows with desk editor Dr. Cain at [facility], hypertension, hyperlipidemia, paroxysmal atrial fibrillation status post implantation of watchman's device in 2022, stage IIIa CKD, COPD not home oxygen dependent, obstructive sleep apnea CPAP dependent nightly, gastroparesis, anxiety with depression, and nicotine dependence recently decreasing her nicotine use from 2 packs daily down to approximately 10 cigarettes daily. Pt presented to the hospital with a chief complaint of chest pain. She reports chest pain began yesterday evening. She states she was sitting outside enjoying the cool night breeze and began feeling sharp heavy pressure to her midsternal chest radiating across her entire chest lasting approximately 1 hour prior to resolving spontaneously. Patient reports after pain went away she went to bed and shortly after awakening this morning she was sitting in her kitchen sipping on some coffee and again began to feel a sharp heavy pain to her midsternal chest radiating into left anterior chest and left shoulder with numbness and tingling down her left arm. Patient denies experiencing any associated symptoms including headache, lightheadedness, dizziness, diaphoresis, palpitations, shortness of breath, cough or congestion, nausea, vomiting, acid reflux or heartburn, or experiencing any focal weakness or swelling in her extremities. Patient denies anything making the pain better or worse and states she cannot reproduce the pain. Upon arrival to our facility pt underwent evaluation in the emergency department. Vital signs upon arrival show blood pressure 172/88, heart rate 62, respiratory rate 20, temp 98.8 F, and SpO2 of 95% on room air. EKG completed showing sinus bradycardia at 57 bpm with T wave inversion in inferior lead III which is a new finding when compared to EKG completed on 03/30/2025. Chest x-ray did not show any acute process. Was completed and reviewed. CBC showing leukocytosis with WBC count of 11.72. Coagulation profile showing a low PTT of 21.6. BMP showing hypercarbia with bicarb of 33 and renal function consistent with known CKD stage IIIa with BUN of 23, creatinine 1.08, GFR 58. Calcium 9.2. Magnesium 2.2. Liver profile unremarkable. Troponin was negative at less than 0.012. Patient admitted under services with consultation to cardiology. Troponins trended all negative at less than 0.012 x 3 draws. Patient reports feeling better this morning and eager to go home. She reports she did have episode of chest pain earlier but currently resolved. Patient was evaluated by desk editor, stating no need for echocardiogram at this time patient may follow-up with primary desk editor Dr. Cain at [facility] as scheduled later this month for outpatient echocardiogram. Vital signs upon discharge show blood pressure 109/74, heart rate 67, respiratory rate 17, 98.2 F, and SpO2 of 94% on room air. Patient medically optimized for discharge at this time and to follow-up outpatient with PCP in 1 to 2 days and with desk editor as scheduled. Physical exam: Vital signs reviewed and stable. General: Nontoxic, no distress and appears stated age. Derm: Skin warm and dry, normal coloration for ethnicity. Head: Atraumatic, normocephalic and symmetric. Eyes: EOM's intact, no lid lag, and anicteric sclera Mouth: no lip lesions, mucus membranes moist Cardiovascular: regular rate and rhythm with normal S1S2, no murmur, positive posterior tibial pulses bilaterally, and cap refill < 2 seconds. Lungs: Respirations even, regular, and unlabored on room air. Lungs CTA bilaterally, no rhonchi, no rales, no wheezing, and no accessory muscle usage. Abdominal: soft, nontender to palpation, no guarding, no appreciable organomegaly Ext: ROM intact. No gross muscle atrophy, no edema, no contractures Neuro: Speech clear, face symmetrical and CN II-XII grossly intact with no noted focal neuro deficits Psych: Alert and oriented to person, place, time, and situation. Appropriate and pleasant affect. A total of 34 minutes of time were spent preparing this complex discharge summary. Pt was discharged on 04/12/2025 at 12:25 PM Patient was seen independently by Nurse Practitioner. This document was prepared using [employer] dictation software. Please allow for errors in [employer] while rare they do occur. Abimael Layton NP rendered care for this patient independently, reviewed the findings and plan as documented in the note above. I did not physically speak with or examine the patient on this date. Patient Condition at Discharge: Stable Plan - Discharge Summary New Discharge Prescriptions: Continue Hydrocortisone Cream [Hydrocortisone 2.5% Cream] 1 applic TOPICAL BID Ammonium Lactate Cream [Lac-Hydrin 12% Cream] 1 applic TOPICAL DAILY oxyBUTYnin chloride [Ditropan] 5 mg PO BID Meclizine [Antivert] 25 mg PO TID Gabapentin 600 mg PO TID #90 tab Lubiprostone [Amitiza] 8 mcg PO BID Pantoprazole [Protonix] 40 mg PO BID methocarbamoL [Robaxin] 500 mg PO TID PRN PRN Reason: muscle spasms Citalopram Hydrobromide [CeleXA] 20 mg PO DAILY Atorvastatin [Lipitor] 10 mg PO DAILY Albuterol Inhaler [Ventolin Hfa Inhaler] 2 puff INHALATION RT-QID PRN PRN Reason: Shortness Of Breath Aspirin 81 mg PO DAILY Diclofenac Sodium Gel [Voltaren 1% Gel] 1 applic TOPICAL BID Budesonide/Formoterol Fumarate [Symbicort 160-4.5 Mcg Inhaler] 2 puff INHALATION RT-BID busPIRone HCL 15 mg PO BID Metoprolol Tartrate [Lopressor] 50 mg PO BID Yev-Kuos-Pmsac Acid [-U Capsule (formulary)] 1 cap PO DAILY No Action Midodrine [ProAmatine] 5 mg PO TID Fludrocortisone [Florinef] 0.1 mg PO DAILY Discharge Medication List Albuterol Inhaler [Ventolin Hfa Inhaler] 2 puff INHALATION RT-QID PRN 10/11/22 [History] Aspirin 81 mg PO DAILY 10/11/22 [History] Atorvastatin [Lipitor] 10 mg PO DAILY 10/11/22 [History] Citalopram Hydrobromide [CeleXA] 20 mg PO DAILY 10/11/22 [History] Midodrine [ProAmatine] 5 mg PO TID 10/11/22 [History] Ammonium Lactate Cream [Lac-Hydrin 12% Cream] 1 applic TOPICAL DAILY 06/23/23 [History] Budesonide/Formoterol Fumarate [Symbicort 160-4.5 Mcg Inhaler] 2 puff INHALATION RT-BID 06/23/23 [History] Diclofenac Sodium Gel [Voltaren 1% Gel] 1 applic TOPICAL BID 06/23/23 [History] Hydrocortisone Cream [Hydrocortisone 2.5% Cream] 1 applic TOPICAL BID 06/23/23 [History] Fludrocortisone [Florinef] 0.1 mg PO DAILY 11/09/23 [History] Metoprolol Tartrate [Lopressor] 50 mg PO BID 11/09/23 [History] busPIRone HCL 15 mg PO BID 11/09/23 [History] oxyBUTYnin chloride [Ditropan] 5 mg PO BID 11/09/23 [History] Meclizine [Antivert] 25 mg PO TID 06/20/24 [History] Gabapentin 600 mg PO TID #90 tab 06/28/24 [Rx] Lubiprostone [Amitiza] 8 mcg PO BID 04/11/25 [History] Pantoprazole [Protonix] 40 mg PO BID 04/11/25 [History] [id number] Acid [-U Capsule (formulary)] 1 cap PO DAILY 04/11/25 [History] methocarbamoL [Robaxin] 500 mg PO TID PRN 04/11/25 [History] Follow up Appointment(s)/Referral(s): Jamila Adams MD [Primary Care Provider] - 1-2 days (please call for an appointment ) Patient Instructions/Handouts: Chest Pain (GEN), Hypertensive Crisis (DC) Activity/Diet/Wound Care/Special Instructions: Activity: As tolerated. Take breaks as needed. Diet: Heart healthy and carb consistent diet. Avoid salts, or foods with hidden salts such as canned or boxed foods and frozen dinners. Extra salt makes your heart work harder and traps the fluid in your body for longer. Special Instructions: Take all of your medications as directed and remember to keep all of your doctor's appointments and follow-up as needed. Strongly recommend holding midodrine and Florinef until following up with your PCP, your blood pressure has been poorly controlled and both of these medications result in hypertension. If needed you may take a dose of your midodrine for a systolic blood pressure < 100. Otherwise please hold and monitor your blood pressures closely at home twice daily and document these findings in a daily log to bring with you at your follow-up appointment with your PCP as well as desk editor. Thank you for allowing us to participate in your care, it was truly a pleasure having you for our patient!!!
== END 2025-04-12 13:08 | disposition home or self-care (01) ==
LOC: EC 12:56 → 6NMEDSUR 14:20
PROVIDERS: ADMIT Student in an Organized Health Care Education/Training Program; ATTEND Student in an Organized Health Care Education/Training Program
DX: R07.89 Other chest pain (principal); I12.9 Hypertensive chronic kidney disease with stage 1 through stage 4 chronic kidney disease, or unspecified chronic kidney disease; N18.31 Chronic kidney disease, stage 3a; I25.10 Atherosclerotic heart disease of native coronary artery without angina pectoris; I48.0 Paroxysmal atrial fibrillation; R00.1 Bradycardia, unspecified; E78.5 Hyperlipidemia, unspecified; J44.9 Chronic obstructive pulmonary disease, unspecified; G47.33 Obstructive sleep apnea (adult) (pediatric); K31.84 Gastroparesis; D72.829 Elevated white blood cell count, unspecified; M79.7 Fibromyalgia; R20.0 Anesthesia of skin; R20.2 Paresthesia of skin; M25.512 Pain in left shoulder; M79.602 Pain in left arm; F17.210 Nicotine dependence, cigarettes, uncomplicated; F32.A Depression, unspecified; F41.9 Anxiety disorder, unspecified; Z79.82 Long term (current) use of aspirin; Z79.51 Long term (current) use of inhaled steroids; Z79.52 Long term (current) use of systemic steroids; Z79.899 Other long term (current) drug therapy; Z88.5 Allergy status to narcotic agent; Z88.2 Allergy status to sulfonamides; Z88.1 Allergy status to other antibiotic agents; Z91.030 Bee allergy status; Z91.040 Latex allergy status; Z95.818 Presence of other cardiac implants and grafts; Z99.89 Dependence on other enabling machines and devices
CPT/HCPCS: 96372; 99285; 36415; 93005; 80061; 80053; 80048; 83735 ×2; 84484; 85025; 85027; 85610; 85730; 71046; G0378 ×2; J1644